=== PATIENT | male | born 1940 | race Caucasian/White ===

== ENCOUNTER 2018-09-15 23:29 | Emergency (ER) | payer MEDICARE ==
[2018-09-15] MEDS ORDERED: Zofran 4 MG/2 ML VIAL IV ONE (23:48)
[2018-09-15] MEDS ORDERED: BABY ASPIRIN 81 MG CHEW PO ONE (23:48)
--- NOTE | 2018-09-16 00:01 | ERPHSYRPT ---
- History of Present Illness Time Seen by Provider: 09/15/18 23:50 Source: patient Exam Limitations: no limitations Physician History: This is a 77-year-old white male with history of irregular heartbeat high blood pressure, he arrives with complaint of substernal chest pain described as dull, associated with nausea and vomiting not associated with shortness of breath onset at 9:30 this evening Patient rates his pain as a 2 out of 10. Past medical history includes High blood pressure, irregular heartbeat, Past surgical history includes bilateral knee replacement, appendectomy, ganglion cyst on the left wrist Social history is positive for occasional alcohol patient denies tobacco or illicit drug use. Timing/Duration: today (9:30 PM) Activities at Onset: rest Quality: dullness Location: substernal Chest Pain Radiation: no radiation Severity of Pain-Max: moderate Severity of Pain-Current: mild Nitro Today/Relief: no nitro taken today Aspirin Treatment Today: 81 mg x 1 (81 mg at home), 81 mg x 3 (83 mg in the emergency room.) Associated Symptoms: nausea, vomiting, chest pain, No abdominal pain, No shortness of breath, No heartburn, No diaphoresis, No cough, No chills, No fever , No headaches, No loss of appetite, No syncope, No seizure, No weakness Prior Chest Pain/Cardiac Workup: cardiac cath (cardiac catheter 5 years ago) Allergies/Adverse Reactions: No Known Drug Allergies Allergy (Verified 09/16/18 01:20) Home Medications: Albuterol Sulfate [Proair Hfa] 8.5 gm IH Q4-6HPRN PRN 09/16/18 [History] Aspirin EC 81 mg [Ecotrin 81 mg] 81 mg PO HS 09/16/18 [History] Fluticasone/Salmeterol [Advair 250-50 Diskus] 1 each IH BID 09/16/18 [History] Montelukast Sodium 10 mg [Singulair 10 MG] 10 mg PO HS 09/16/18 [History] Potassium Chloride 10 Meq Tab* [Klor Con 10 MEQ] 20 meq PO DAILY 09/16/18 [ History] Pravastatin Sodium 40 mg PO HS 09/16/18 [History] Theophylline Anhydrous 300 mg* [Theodur 300MG] 300 mg PO TID 09/16/18 [ History] Verapamil HCl [Verapamil ER] 120 mg PO HS 09/16/18 [History] Verapamil HCl [Verapamil ER] 240 mg PO DAILY 09/16/18 [History] - Review of Systems Constitutional: No Fever, No Chills Eyes: No Symptoms Ears, Nose, & Throat: No Symptoms Respiratory: No Cough, No Dyspnea Cardiac: Chest Pain, No Edema, No Palpitations, No Syncope, No Orthopnea Abdominal/Gastrointestinal: Nausea, Vomiting, No Abdominal Pain, No Diarrhea, No Constipation, No Hematemesis, No Hematochezia, No Melena, No Dysphagia, No Appetite Changes Genitourinary Symptoms: No Dysuria Musculoskeletal: No Back Pain, No Neck Pain Skin: No Rash Neurological: No Dizziness, No Focal Weakness, No Sensory Changes Psychological: No Symptoms Endocrine: No Symptoms All Other Systems: Reviewed and Negative - Past Medical History Pertinent Past Medical History: Yes Cardiac History: Hypertension, Other (irregular heartbeat) - Past Surgical History Gastrointestinal: Appendectomy Musculoskeletal: Joint Replacement (Bilateral knees), Other (Ganglion cyst left wrist) - Nursing Vital Signs Nursing Vital Signs: Initial Vital Signs O2 Sat by Pulse Oximetry 97 09/15/18 23:54 Pain Scale Pain Intensity 2 - Physical Exam General Appearance: moderate distress, alert Eye Exam: PERRL/EOMI, eyes nml inspection Ears, Nose, Throat Exam: normal ENT inspection, moist mucous membranes Neck Exam: normal inspection, non-tender, supple Respiratory Exam: normal breath sounds, lungs clear, No respiratory distress Cardiovascular Exam: normal heart sounds, irregular, capillary refill <2 sec, No edema Gastrointestinal/Abdomen Exam: soft, No tenderness, No mass Back Exam: normal inspection, No CVA tenderness, No vertebral tenderness Neurologic Exam: alert, oriented x 3, cooperative, 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, normal mood/affect, nml cerebellar function, sensation nml, No motor deficits Skin Exam: normal color, warm, dry Lymphatic Exam: No adenopathy SpO2 Interpretation: normal (97%) SpO2: 97 - Course Nursing assessment & vital signs reviewed: Yes EKG Interpreted by Me: RATE (94 bpm), A-fib, NORMAL AXIS, Other (EKG: Atrial fibrillation, poor anterior R-wave progression, no acute ST or T wave changes noted) - Radiology Exams Chest X-ray Interpretation: Interpreted by me (no acute disease process noted) Ordered Tests: Active Orders 24 hr Category Date Time Status Chronograph Operator STAT Care 09/15/18 23:48 Active EKG-ER Only STAT Care 09/15/18 23:48 Active EKG-ER Only STAT Care 09/16/18 01:41 Active IV Insertion STAT Care 09/15/18 23:48 Active Pulse Oximetry (ED) STAT Care 09/15/18 23:48 Active CHEST 1 VIEW (PORTABLE) Routine Exams 09/16/18 00:22 Taken TROPONIN Q3H Lab 09/16/18 02:48 Ordered TROPONIN Q3H Lab 09/16/18 05:48 Ordered TROPONIN Q3H Lab 09/16/18 08:48 Ordered TROPONIN Q3H Lab 09/16/18 11:48 Ordered Medication Summary Generic Name Dose Route Start Last Admin Trade Name Freq PRN Reason Stop Dose Admin Sodium Chloride 1,000 mls @ 100 mls/hr 09/16/18 02:00 09/16/18 01:55 Sodium Chloride 0.9% 1000 Ml IV 10/16/18 01:59 100 mls/hr .Q10H LALITO Administration Discontinued Medications Generic Name Dose Route Start Last Admin Trade Name Freq PRN Reason Stop Dose Admin Aspirin 243 mg 09/15/18 23:48 09/16/18 00:04 Baby Aspirin 81 Mg Chew PO 09/15/18 23:49 243 mg STAT ONE Administration Aspirin Confirm 09/16/18 00:02 Baby Aspirin 81 Mg Chew Administered 09/16/18 00:03 Dose 243 mg .ROUTE .STK-MED ONE Nitroglycerin 1 gm 09/16/18 01:49 09/16/18 01:55 Nitro-Bid 2% Ud Packets TOP 09/16/18 01:50 1 gm STAT ONE Administration Nitroglycerin Confirm 09/16/18 01:49 Nitro-Bid 2% Ud Packets Administered 09/16/18 01:50 Dose 1 gm .ROUTE .STK-MED ONE Ondansetron HCl 4 mg 09/15/18 23:48 09/16/18 00:04 Zofran 4 Mg/2 Ml Vial IV 09/15/18 23:49 4 mg STAT ONE Administration Ondansetron HCl Confirm 09/16/18 00:02 Zofran 4 Mg/2 Ml Vial Administered 09/16/18 00:03 Dose 4 mg .ROUTE .STK-MED ONE Lab/Rad Data: Laboratory Result Diagrams 09/15/18 00:00 09/15/18 00:00 Laboratory Results 09/15/18 09/15/18 09/15/18 Range/Units 00:00 00:00 00:00 WBC (4.0-10.5) K/mm3 RBC (4.1-5.6) M/mm3 Hgb (12.5-18.0) gm/dl Hct (42-50) % MCV (78-100) fl MCH (26-32) pg MCHC (32-36) g/dl RDW (11.5-14.0) % Plt Count (150-450) K/mm3 MPV (6-9.5) fl Gran % (36.0-66.0) % Eos # (Auto) (0-0.5) Absolute Lymphs (auto) (1.0-4.6) Absolute Monos (auto) (0.0-1.3) Lymphocytes % (24.0-44.0) % Monocytes % (0.0-12.0) % Eosinophils % (0.00-5.0) % Basophils % (0.0-0.4) % Absolute Granulocytes (1.4-6.9) Basophils # (0-0.4) PT 16.4 H (8.83-12.87) SECONDS INR 1.41 (0.8-3.0) APTT 33.8 (24.1-36.1) SECONDS D-Dimer 333 (215-500) ng/mL Sodium (137-145) mmol/L Potassium (3.5-5.1) mmol/L Chloride (98-107) mmol/L Carbon Dioxide (22-30) mmol/L Anion Gap (5-15) MEQ/L BUN (9-20) mg/dL Creatinine (0.66-1.25) mg/dL Estimated GFR ML/MIN Glucose (74-106) mg/dL Calcium (8.4-10.2) mg/dL Total Bilirubin (0.2-1.3) mg/dL AST (17-59) U/L ALT (0-50) U/L Alkaline Phosphatase (38-126) U/L Troponin I (0.000-0.034) ng/mL Serum Total Protein (6.3-8.2) g/dL Albumin (3.5-5.0) g/dL Amylase 39 (30-110) U/L Lipase 67 (23-300) U/L Theophylline 8.2 L (10-20) ug/mL 09/15/18 09/15/18 09/15/18 Range/Units 00:00 00:00 00:00 WBC 10.7 H (4.0-10.5) K/mm3 RBC 4.63 (4.1-5.6) M/mm3 Hgb 14.2 (12.5-18.0) gm/dl Hct 44.5 (42-50) % MCV 96.1 (78-100) fl MCH 30.7 (26-32) pg MCHC 31.9 L (32-36) g/dl RDW 13.8 (11.5-14.0) % Plt Count 304 (150-450) K/mm3 MPV 10.9 H (6-9.5) fl Gran % 75.8 H (36.0-66.0) % Eos # (Auto) 0.16 (0-0.5) Absolute Lymphs (auto) 1.22 (1.0-4.6) Absolute Monos (auto) 1.16 (0.0-1.3) Lymphocytes % 11.4 L (24.0-44.0) % Monocytes % 10.8 (0.0-12.0) % Eosinophils % 1.5 (0.00-5.0) % Basophils % 0.5 (0.0-0.4) % Absolute Granulocytes 8.12 H (1.4-6.9) Basophils # 0.05 (0-0.4) PT (8.83-12.87) SECONDS INR (0.8-3.0) APTT (24.1-36.1) SECONDS D-Dimer (215-500) ng/mL Sodium 137 (137-145) mmol/L Potassium 4.1 (3.5-5.1) mmol/L Chloride 101 (98-107) mmol/L Carbon Dioxide 28 (22-30) mmol/L Anion Gap 12.6 (5-15) MEQ/L BUN 17 (9-20) mg/dL Creatinine 0.81 (0.66-1.25) mg/dL Estimated GFR > 60.0 ML/MIN Glucose 110 H (74-106) mg/dL Calcium 9.5 (8.4-10.2) mg/dL Total Bilirubin 0.90 (0.2-1.3) mg/dL AST 16 L (17-59) U/L ALT 14 (0-50) U/L Alkaline Phosphatase 76 (38-126) U/L Troponin I 0.027 (0.000-0.034) ng/mL Serum Total Protein 7.1 (6.3-8.2) g/dL Albumin 4.2 (3.5-5.0) g/dL Amylase (30-110) U/L Lipase (23-300) U/L Theophylline (10-20) ug/mL - Progress Progress: improved Progress Note: 09/16/18 02:14 77-year-old white male with history of high blood pressure, irregular heartbeat arrives with complaint of anterior sternal chest pain described as dull rated as a 3 out of 10 onset at 9:30 PM while at rest not associated with shortness of breath but associated with nausea and vomiting. Patient rated his pain is minimal on interview however he didn't appear to be somewhat uncomfortable. Patient did have stable vital signs with a temperature of 98 2 pulse 94 respirations 16 blood pressure 131/83 saturations are 95% patient had an EKG which of was obtained at 11:37 PM September 15, 2018 remarkable for atrial fibrillation 94 bpm normal axis there are R PVCs there are no acute ST or T wave changes patient's EKG was repeated at 0 146 noted be of atrial fibrillation with tachycardia 101 bpm normal axis no acute ST or T wave changes there were PVCs again no acute ST or T wave changes Patient's chemistry sodium 137 potassium 4.1 chloride 101 bicarbonate 28 BUN 17 creatinine 0.81 glucose 110 patient's d-dimer 333 Patient's CBC White blood cell 10.7 hemoglobin 14.2 hematocrit 44.5 platelets 304 patient's troponin was 0.027 normal is up to 0.034 amylase is 93 lipase is 67 theophylline is within normal limits Patient was given Zofran 4 mg IV. Patient had taken aspirin 81 mg at home we gave him 243 mg here in the emergency room. On recheck after troponin was available patient stated that he still had some pain and therefore he was given nitroglycerin paste 1 inch. Also started on normal saline 100 mL per hour. I've discussed the patient with initially with Dr. Woods (the patient's staffing analyst was Dr. Orantes, however Dr. Orantes could not be reached and Dr. Woods was kind enough to consult, Dr. Woods recommended sending the patient to the hospitalist (through ER) secondary to the patient was Dr. Orantes's he stated that he would be fine with care of this patient however he felt that the patient should go through the hospitalist since it was Dr. Orantes's patient. [facility] placement on contact with Dr. Hernández. The emergency room doctor at [facility], the case was discussed with Dr. Hernández, and he accepted the patient for transfer. Patient will be transferred by paramedics ACLS capable. Patient appears to be stable at this time. 09/16/18 03:33 - Departure Time of Disposition: 02:20 Departure Disposition: Transfer ([facility] Dr. Hernández) Clinical Impression: Chest pain Qualifiers: Chest pain type: unspecified Qualified Code(s): R07.9 - Chest pain, unspecified Atrial fibrillation Qualifiers: Atrial fibrillation type: unspecified Qualified Code(s): I48.91 - Unspecified atrial fibrillation Condition: Fair Critical Care Time: No Referrals: COURTNEY JOHNSON [Primary Care Provider] -
[2018-09-16] MEDS ORDERED: Zofran 4 MG/2 ML VIAL ONE (00:02)
[2018-09-16] MEDS ORDERED: BABY ASPIRIN 81 MG CHEW ONE (00:02)
[2018-09-16 00:45] LABS: BASOPHIL % 0.5 % (0.0-0.4); Basophil (Absolute #) 0.05 (0-0.4); Eosinophil % 1.5 % (0.00-5.0); Eosinophil (Absolute #) 0.16 (0-0.5); Granulocytes % 75.8 % (36.0-66.0); Hematocrit 44.5 % (42-50); Hemoglobin 14.2 gm/dl (12.5-18.0); Lymphocyte (Absolute #) 1.22 (1.0-4.6); Lymphocytes % 11.4 % (24.0-44.0); Mean Cell Volume 96.1 fl (78-100); Mean Corpuscular Hemoglobin 30.7 pg (26-32); Mean Corpuscular Hgb Concent. 31.9 g/dl (32-36); Mean Platelet Volume 10.9 fl (6-9.5); Monocyte (Absolute #) 1.16 (0.0-1.3); Monocytes % 10.8 % (0.0-12.0); Platelet Count 304 K/mm3 (150-450); Red Blood Count 4.63 M/mm3 (4.1-5.6); Red Cell Distribution Width 13.8 % (11.5-14.0)
[2018-09-16 00:56] LABS: ALBUMIN 4.2 g/dL (3.5-5.0); ALKALINE PHOSPHATASE 76 U/L (38-126); ANION GAP 12.6 MEQ/L (5-15); BLOOD UREA NITROGEN 17 mg/dL (9-20); CHLORIDE 101 mmol/L (98-107); Calcium 9.5 mg/dL (8.4-10.2); Carbon Dioxide 28 mmol/L (22-30); Glucose 110 mg/dL (74-106); Potassium 4.1 mmol/L (3.5-5.1); SGOT/AST 16 U/L (17-59); SGPT/ALT 14 U/L (0-50); SODIUM 137 mmol/L (137-145); Total Protein 7.1 g/dL (6.3-8.2)
[2018-09-16 01:12] LABS: INR 1.41 (0.8-3.0); PROTIME 16.4 SECONDS (8.83-12.87)
[2018-09-16 01:23] LABS: LIPASE 67 U/L (23-300)
[2018-09-16] MEDS ORDERED: Sodium Chloride 0.9% 1000 ML 1,000 ML ONE (01:49)
[2018-09-16] MEDS ORDERED: NITRO-BID 2% UD PACKETS ONE (01:49)
[2018-09-16] MEDS ORDERED: NITRO-BID 2% UD PACKETS TOP ONE (01:49)
[2018-09-16] MEDS ORDERED: Sodium Chloride 0.9% 1000 ML 1,000 ML IV SCH (02:00)
[2018-09-16 02:06] VITALS: BP 111/87; PULSE 109
[2018-09-16 02:20] VITALS: O2SAT 97
[2018-09-16 03:59] LABS: Slide Review 1 YES
[2018-09-16 05:21] LABS: White Blood Count 10.7 K/mm3 (4.0-10.5)
[2018-09-16 05:22] LABS: PTT 33.8 SECONDS (24.1-36.1)
[2018-09-16 05:23] LABS: AMYLASE 39 U/L (30-110)
[2018-09-16 05:24] LABS: Creatinine 1 0.81 mg/dL (0.66-1.25)
--- NOTE | 2018-09-16 09:17 | XRAY ---
Indication: Chest pain. Comparison: August 19, 2018. Portable apical lordotic chest demonstrates new left lung base hazy opacity silhouetting the hemidiaphragm, infiltrate versus atelectasis with small effusion. Remaining heart and right lung unremarkable. Bony thorax intact again with mild degenerative changes and minimal scoliosis. Impression: New left base infiltrate versus atelectasis with small effusion. Correlate clinically. Comment: Left lung finding not reported on preliminary interpretation by the ER clinician. Telephone report given to Dr. Orourke at 0912 hrs. on September 16, 2018.
== END 2018-09-16 02:40 | disposition short-term general hospital (02) ==
LOC: ED 23:29
DX: R07.9 Chest pain, unspecified (principal); I48.91 Unspecified atrial fibrillation; R11.2 Nausea with vomiting, unspecified; Z79.899 Other long term (current) drug therapy
CPT/HCPCS: 36000; 36415; 71045; 80053; 80198; 82150; 83690; 84484; 85025; 85379; 85610; 85730; 93005; 93041; 96360; 96374; 99285; J2405; A9270-GY

== ENCOUNTER 2018-09-19 15:10 | Emergency (ER) | payer MEDICARE ==
--- NOTE | 2018-09-19 15:45 | ERPHSYRPT ---
- History of Present Illness Time Seen by Provider: 09/19/18 15:25 Historian: patient, family Exam Limitations: no limitations Patient Subjective Stated Complaint: co abd pain since last night, pain to center of abd. no vomiting or nausea,no fever, constipation. last bm today. pt released from [facility] yesterday for chest pain and rvr, no chest pain today Triage Nursing Assessment: pt walked in, resp easy, skin w/d/p. abd soft,abd soft nonteder to touch Physician History: 77 y/o white male presents with abd pain that began shortly after waking up this am. pt released from hospital yesterday for tx of afib with rvr. new med of eliquis started. pt denies headache, denies cp and denies fever, denies n/v/ d. pt has not had a good bm in over 2 days. Timing/Duration: today Activities at Onset: none Quality: fullness, pressure Abdominal Pain Onset Location: generalized abdomen Pain Radiation: no radiation Severity of Pain-Max: mild Severity of Pain-Current: mild Modifying Factors: Worsens With: other Associated Symptoms: denies symptoms, No diarrhea, No headache, No loss of appetite, No nausea, No shortness of breath, No vomiting Previous symptoms: no prior history Allergies/Adverse Reactions: No Known Drug Allergies Allergy (Verified 09/19/18 15:25) Home Medications: Albuterol Sulfate [Proair Hfa] 8.5 gm IH Q4-6HPRN PRN 09/16/18 [History] Aspirin EC 81 mg [Ecotrin 81 mg] 81 mg PO HS 09/16/18 [History] Fluticasone/Salmeterol [Advair 250-50 Diskus] 1 each IH BID 09/16/18 [History] Montelukast Sodium 10 mg [Singulair 10 MG] 10 mg PO HS 09/16/18 [History] Potassium Chloride 10 Meq Tab* [Klor Con 10 MEQ] 20 meq PO DAILY 09/16/18 [ History] Pravastatin Sodium 40 mg PO HS 09/16/18 [History] Theophylline Anhydrous 300 mg* [Theodur 300MG] 300 mg PO TID 09/16/18 [ History] Apixaban [Eliquis] 5 mg BID 09/19/18 [History] Metoprolol Tartrate [Lopressor] 50 mg BID 09/19/18 [History] Hx Tetanus, Diphtheria Vaccination/Date Given: Yes Hx Influenza Vaccination/Date Given: Yes Hx Pneumococcal Vaccination/Date Given: Yes Immunizations Up to Date: Yes - Review of Systems Constitutional: No Symptoms Eyes: No Symptoms Ears, Nose, & Throat: No Symptoms Respiratory: No Symptoms Cardiac: No Symptoms Abdominal/Gastrointestinal: Abdominal Pain, Constipation Genitourinary Symptoms: No Symptoms, No Dysuria, No Frequency, No Hematuria Musculoskeletal: No Symptoms Skin: No Symptoms Neurological: No Symptoms Psychological: No Symptoms Endocrine: No Symptoms Hematologic/Lymphatic: No Symptoms Immunological/Allergic: No Symptoms All Other Systems: Reviewed and Negative - Past Medical History Pertinent Past Medical History: Yes Neurological History: No Pertinent History ENT History: No Pertinent History Cardiac History: Arrhythmia, Hypertension, Other Respiratory History: COPD Endocrine Medical History: No Pertinent History Musculoskeletal History: No Pertinent History GI Medical History: No Pertinent History History: No Pertinent History Psycho-Social History: No Pertinent History Male Reproductive Disorders: No Pertinent History - Past Surgical History Past Surgical History: Yes Neuro Surgical History: No Pertinent History Cardiac: No Pertinent History Respiratory: No Pertinent History Gastrointestinal: Appendectomy Genitourinary: No Pertinent History Musculoskeletal: Joint Replacement, Other Male Surgical History: No Pertinent History Other Surgical History: bilat knees - Social History Smoking Status: Former smoker Exposure to second hand smoke: No Drug Use: none Patient Lives Alone: Yes - Nursing Vital Signs Nursing Vital Signs: Initial Vital Signs Temperature 110 F 09/19/18 15:14 Respiratory Rate 18 09/19/18 15:14 Blood Pressure 150/109 09/19/18 15:14 O2 Sat by Pulse Oximetry 96 09/19/18 15:14 Pain Scale Pain Intensity 4 - Physical Exam General Appearance: no apparent distress, alert, anxiety Eye Exam: PERRL/EOMI, eyes nml inspection Ears, Nose, Throat Exam: normal ENT inspection, moist mucous membranes Neck Exam: normal inspection, non-tender, supple, full range of motion Respiratory Exam: normal breath sounds, lungs clear, airway intact, No chest tenderness, No respiratory distress, No accessory muscle use, No rhonchi, No wheezing, No stridor Cardiovascular Exam: irregular Gastrointestinal/Abdomen Exam: soft, normal bowel sounds, No tenderness, No guarding, No rebound Rectal Exam: not done Back Exam: normal inspection, normal range of motion, No CVA tenderness, No vertebral tenderness Extremity Exam: normal inspection, normal range of motion, pelvis stable Neurologic Exam: alert, oriented x 3, cooperative, 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 Skin Exam: normal color, warm, dry Lymphatic Exam: adenopathy SpO2 Interpretation: normal SpO2: 96 Oxygen Delivery: Room Air - Course Nursing assessment & vital signs reviewed: Yes EKG Interpreted by Me: RATE (121), A-fib, NORMAL AXIS, Non-specific ST Changes, Other (no change from ekg dated 09/16/18) Ordered Tests: Active Orders 24 hr Category Date Time Status Clean Catch Urine Specimen STAT Care 09/19/18 15:46 Active ABDOMEN AND PELVIS W/0 CONTRAS [CT] Stat Exams 09/19/18 15:46 Completed AMYLASE Stat Lab 09/19/18 16:21 Completed CBC W DIFF Stat Lab 09/19/18 16:21 Completed CMP Stat Lab 09/19/18 16:21 Completed LIPASE Stat Lab 09/19/18 16:21 Completed Lactic Acid Stat Lab 09/19/18 15:55 Completed Lactic Acid Stat Lab 09/19/18 18:00 Ordered UA W/RFX UR CULTURE Stat Lab 09/19/18 16:21 Completed Medication Summary Generic Name Dose Route Start Last Admin Trade Name Freq PRN Reason Stop Dose Admin Sodium Chloride 1,000 mls @ 100 mls/hr 09/19/18 16:00 09/19/18 16:18 Sodium Chloride 0.9% 1000 Ml IV 10/19/18 15:59 100 mls/hr .Q10H LALITO Administration Discontinued Medications Generic Name Dose Route Start Last Admin Trade Name Freq PRN Reason Stop Dose Admin Diltiazem HCl 20 mg 09/19/18 15:47 09/19/18 16:18 Cardizem Iv 50 Mg/10 Ml IV 09/19/18 15:48 20 mg STAT ONE Administration Diltiazem HCl Confirm 09/19/18 16:01 Cardizem Iv 50 Mg/10 Ml Administered 09/19/18 16:02 Dose 50 mg IV .STK-MED ONE Lab/Rad Data: Laboratory Result Diagrams 09/19/18 16:21 09/19/18 16:21 Laboratory Results 09/19/18 09/19/18 09/19/18 Range/Units 16:21 16:21 16:21 WBC 14.9 H (4.0-10.5) K/mm3 RBC 5.07 (4.1-5.6) M/mm3 Hgb 15.3 (12.5-18.0) gm/dl Hct 47.6 (42-50) % MCV 93.9 (78-100) fl MCH 30.2 (26-32) pg MCHC 32.1 (32-36) g/dl RDW 13.7 (11.5-14.0) % Plt Count 308 (150-450) K/mm3 MPV 11.1 H (6-9.5) fl Gran % 83.2 H (36.0-66.0) % Eos # (Auto) 0.02 (0-0.5) Absolute Lymphs (auto) 0.86 L (1.0-4.6) Absolute Monos (auto) 1.58 H (0.0-1.3) Lymphocytes % 5.8 L (24.0-44.0) % Monocytes % 10.6 (0.0-12.0) % Eosinophils % 0.1 (0.00-5.0) % Basophils % 0.3 (0.0-0.4) % Absolute Granulocytes 12.41 H (1.4-6.9) Basophils # 0.04 (0-0.4) Sodium 136 L (137-145) mmol/L Potassium 4.0 (3.5-5.1) mmol/L Chloride 100 (98-107) mmol/L Carbon Dioxide 24 (22-30) mmol/L Anion Gap 16.1 H (5-15) MEQ/L BUN 12 (9-20) mg/dL Creatinine 0.61 L (0.66-1.25) mg/dL Estimated GFR > 60.0 ML/MIN Glucose 109 H (74-106) mg/dL Lactic Acid (0.4-2.0) Calcium 9.7 (8.4-10.2) mg/dL Total Bilirubin 1.30 (0.2-1.3) mg/dL AST 19 (17-59) U/L ALT 15 (0-50) U/L Alkaline Phosphatase 67 (38-126) U/L Serum Total Protein 7.6 (6.3-8.2) g/dL Albumin 4.4 (3.5-5.0) g/dL Amylase 52 (30-110) U/L Lipase 49 (23-300) U/L Urine Color YELLOW (YELLOW) Urine Appearance CLEAR (CLEAR) Urine pH 5.0 (5-6) Ur Specific Parsons 1.025 (1.005-1.025) Urine Protein NEGATIVE (Negative) Urine Ketones MODERATE (NEGATIVE) Urine Blood MODERATE (0-5) Keegan/ul Urine Nitrite NEGATIVE (NEGATIVE) Urine Bilirubin NEGATIVE (NEGATIVE) Urine Urobilinogen 2 (0-1) mg/dL Ur Leukocyte Esterase NEGATIVE (NEGATIVE) Urine WBC (Auto) NONE (0-5) /HPF Urine RBC (Auto) 6-10 (0-2) /HPF U Epithel Cells (Auto) NONE (FEW) /HPF Urine Bacteria (Auto) RARE (NEGATIVE) /HPF Urine Mucus (Auto) MODERATE (NEGATIVE) /HPF Urine Culture Reflexed NO (NO) Urine Glucose NEGATIVE (NEGATIVE) mg/dL Slides for Path Review YES 09/19/18 Range/Units 15:55 WBC (4.0-10.5) K/mm3 RBC (4.1-5.6) M/mm3 Hgb (12.5-18.0) gm/dl Hct (42-50) % MCV (78-100) fl MCH (26-32) pg MCHC (32-36) g/dl RDW (11.5-14.0) % Plt Count (150-450) K/mm3 MPV (6-9.5) fl Gran % (36.0-66.0) % Eos # (Auto) (0-0.5) Absolute Lymphs (auto) (1.0-4.6) Absolute Monos (auto) (0.0-1.3) Lymphocytes % (24.0-44.0) % Monocytes % (0.0-12.0) % Eosinophils % (0.00-5.0) % Basophils % (0.0-0.4) % Absolute Granulocytes (1.4-6.9) Basophils # (0-0.4) Sodium (137-145) mmol/L Potassium (3.5-5.1) mmol/L Chloride (98-107) mmol/L Carbon Dioxide (22-30) mmol/L Anion Gap (5-15) MEQ/L BUN (9-20) mg/dL Creatinine (0.66-1.25) mg/dL Estimated GFR ML/MIN Glucose (74-106) mg/dL Lactic Acid 2.0 (0.4-2.0) Calcium (8.4-10.2) mg/dL Total Bilirubin (0.2-1.3) mg/dL AST (17-59) U/L ALT (0-50) U/L Alkaline Phosphatase (38-126) U/L Serum Total Protein (6.3-8.2) g/dL Albumin (3.5-5.0) g/dL Amylase (30-110) U/L Lipase (23-300) U/L Urine Color (YELLOW) Urine Appearance (CLEAR) Urine pH (5-6) Ur Specific Parsons (1.005-1.025) Urine Protein (Negative) Urine Ketones (NEGATIVE) Urine Blood (0-5) Keegan/ul Urine Nitrite (NEGATIVE) Urine Bilirubin (NEGATIVE) Urine Urobilinogen (0-1) mg/dL Ur Leukocyte Esterase (NEGATIVE) Urine WBC (Auto) (0-5) /HPF Urine RBC (Auto) (0-2) /HPF U Epithel Cells (Auto) (FEW) /HPF Urine Bacteria (Auto) (NEGATIVE) /HPF Urine Mucus (Auto) (NEGATIVE) /HPF Urine Culture Reflexed (NO) Urine Glucose (NEGATIVE) mg/dL Slides for Path Review - Progress Progress: improved, re-examined Progress Note: 09/19/18 18:25 pt states his pain is gone in the middle and only mild in ruq. ct scan abd/ pelvis-distended gb with gallstones. there is pericholecystic stranding. 09/19/18 18:[address] morales. reviewed pt hx, condition, lab,ekg and ct scan results with him. pt has an appt with dr. morales tomorrow morning. dr. morales states ok to discharge pt to home. no further labs, meds or instructions necessary per dr. morales. pt wants to go home. he has very little ruq abd pain and no cp and no soa. Counseled pt/family regarding: lab results, diagnosis, need for follow-up, rad results - Departure Time of Disposition: 18:46 Departure Disposition: Home Clinical Impression: Abdominal pain, Cholelithiasis Condition: Stable Critical Care Time: No Referrals: COURTNEY JOHNSON [Primary Care Provider] - Additional Instructions: clear liquids for 12 to 24 hours. avoid fatty, greasy spicy foods. take medications as prescribed. follow up with dr. morales tomorrow as scheduled. Prescriptions: Ciprofloxacin [Cipro 500 MG] 500 mg PO BID #14 tablet
[2018-09-19] MEDS ORDERED: Cardizem IV 50 MG/10 ML IV ONE ×2 (15:47→16:01)
[2018-09-19] MEDS ORDERED: Sodium Chloride 0.9% 1000 ML 1,000 ML IV SCH (16:00)
[2018-09-19] MEDS ORDERED: Sodium Chloride 0.9% 1000 ML 1,000 ML ONE (16:01)
[2018-09-19 16:23] LABS: BASOPHIL % 0.3 % (0.0-0.4); Basophil (Absolute #) 0.04 (0-0.4); Eosinophil % 0.1 % (0.00-5.0); Eosinophil (Absolute #) 0.02 (0-0.5); Granulocytes % 83.2 % (36.0-66.0); Hematocrit 47.6 % (42-50); Hemoglobin 15.3 gm/dl (12.5-18.0); Lymphocyte (Absolute #) 0.86 (1.0-4.6); Lymphocytes % 5.8 % (24.0-44.0); Mean Cell Volume 93.9 fl (78-100); Mean Corpuscular Hemoglobin 30.2 pg (26-32); Mean Corpuscular Hgb Concent. 32.1 g/dl (32-36); Mean Platelet Volume 11.1 fl (6-9.5); Monocyte (Absolute #) 1.58 (0.0-1.3); Monocytes % 10.6 % (0.0-12.0); Platelet Count 308 K/mm3 (150-450); Red Blood Count 5.07 M/mm3 (4.1-5.6); Red Cell Distribution Width 13.7 % (11.5-14.0); White Blood Count 14.9 K/mm3 (4.0-10.5)
--- NOTE | 2018-09-19 16:23 | XRAY ---
Indication: Abdomen pain. Multiple contiguous axial images obtained through the abdomen and pelvis without contrast as ordered. Comparison: None Lung bases demonstrates mild bibasilar atelectasis/scarring and tiny effusions. Heart is not enlarged. Noncontrasted stomach and bowel loops appear nonobstructed. Previous reported appendectomy. Scattered descending and sigmoid diverticulosis. Gallbladder moderately distended with multiple small intraluminal gallstones and mild pericholecystic stranding concerning for cholecystitis. Enlarged prostate gland impresses on the base of the bladder. Remaining liver, pancreas, spleen, adrenal glands, kidneys, ureters, and bladder appear unremarkable for noncontrast exam. Moderate aortoiliac calcifications without AAA. Osseous structures intact with mild/moderate degenerative changes throughout the spine. Multiple bilateral gluteal calcified injection granulomas. Impression: 1. Distended gallbladder with gallstones and pericholecystic stranding. Rule out cholecystitis. 2. Colonic diverticulosis without diverticulitis. 3. Enlarged prostate gland. 4. Tiny bibasilar effusions without cardiomegaly. CT DI 22.18
[2018-09-19 16:27] LABS: Appearance CLEAR (CLEAR); Bacteria RARE /HPF (NEGATIVE); Bilirubin NEGATIVE (NEGATIVE); Blood MODERATE Ery/ul (0-5); Glucose NEGATIVE (NEGATIVE); Ketones MODERATE (NEGATIVE); Leukocyte Esterase NEGATIVE (NEGATIVE); Mucus MODERATE /HPF (NEGATIVE); Nitrite NEGATIVE (NEGATIVE); Protein,Urine Dip NEGATIVE (Negative); Specific Gravity 1.025 (1.005-1.025); Urobilinogen 2 mg/dL (0-1)
[2018-09-19 16:36] LABS: ALBUMIN 4.4 g/dL (3.5-5.0); ALKALINE PHOSPHATASE 67 U/L (38-126); AMYLASE 52 U/L (30-110); ANION GAP 16.1 MEQ/L (5-15); BLOOD UREA NITROGEN 12 mg/dL (9-20); CHLORIDE 100 mmol/L (98-107); Calcium 9.7 mg/dL (8.4-10.2); Carbon Dioxide 24 mmol/L (22-30); Creatinine 1 0.61 mg/dL (0.66-1.25); Glucose 109 mg/dL (74-106); LIPASE 49 U/L (23-300); SGOT/AST 19 U/L (17-59); SGPT/ALT 15 U/L (0-50); SODIUM 136 mmol/L (137-145); Total Protein 7.6 g/dL (6.3-8.2)
[2018-09-19 16:44] LABS: Slide Review 1 YES
[2018-09-19] MEDS ORDERED: Cipro 500 MG PO ONE (18:49)
[2018-09-19] MEDS ORDERED: Cipro 500 MG ONE (18:55)
[2018-09-19 19:31] VITALS: BP 142/103; PULSE 104; O2SAT 97
== END 2018-09-19 19:35 | disposition home or self-care (01) ==
LOC: ED 15:10
DX: R10.9 Unspecified abdominal pain (principal); Z79.899 Other long term (current) drug therapy; Z79.01 Long term (current) use of anticoagulants; K59.00 Constipation, unspecified; I10 Essential (primary) hypertension; J44.9 Chronic obstructive pulmonary disease, unspecified
CPT/HCPCS: 36000; 36415; 74176; 80053; 81001; 82150; 83605; 83690; 85025; 96360; 96374; 99284; A9270-GY

== ENCOUNTER 2018-10-14 23:51 | Inpatient (IN) | payer MEDICARE ==
--- NOTE | 2018-10-15 00:14 | ERPHSYRPT ---
- History of Present Illness Time Seen by Provider: 10/15/18 00:07 Historian: patient Exam Limitations: no limitations Physician History: The patient is a 77-year-old male with his complaining of right upper quadrant abdominal pain that began at 8 PM (4 hours ago). He has a known problem with his gallbladder and is scheduled to have it removed on 10/24/18. He does not have any pain medicines at home. He denies nausea or vomiting. He denies diarrhea. He denies chest pain or shortness of breath. He was seen in this ER on 09/19/18 for the same complaint. He was found at that time to have gallstones and a distended gallbladder by CT scan of the abdomen and pelvis. His past medical history significant for gallbladder disease, HTN, A. fib, COPD , appendectomy, and bilateral total knee replacements. Timing/Duration: today, hour(s) (4), sudden, worse Activities at Onset: none Quality: sharpness Abdominal Pain Onset Location: RUQ Pain Radiation: no radiation Severity of Pain-Max: moderate Severity of Pain-Current: moderate Modifying Factors: Improves With: nothing Associated Symptoms: No chest pain, No diaphoresis, No diarrhea, No nausea, No vomiting Previous symptoms: same symptoms as today, recently seen Allergies/Adverse Reactions: No Known Drug Allergies Allergy (Verified 09/19/18 15:25) Home Medications: Albuterol Sulfate [Proair Hfa] 8.5 gm IH Q4-6HPRN PRN 09/16/18 [History] Fluticasone/Salmeterol [Advair 250-50 Diskus] 2 each IH BID 09/16/18 [History] Montelukast Sodium 10 mg [Singulair 10 MG] 10 mg PO HS 09/16/18 [History] Potassium Chloride 10 Meq Tab* [Klor Con 10 MEQ] 20 meq PO BID 09/16/18 [ History] Pravastatin Sodium 40 mg PO HS 09/16/18 [History] Theophylline Anhydrous 300 mg* [Theodur 300MG] 300 mg PO BID 09/16/18 [ History] Apixaban [Eliquis] 5 mg PO BID 09/19/18 [History] Metoprolol Tartrate [Lopressor] 50 mg PO BID 09/19/18 [History] Digoxin 0.125 mg Tablet [Lanoxin 0.125MG TABLET] 0.125 mg PO HS 10/14/18 [ History] Benzonatate [Tessalon Perle] 100 mg PO TIDPRN PRN 10/15/18 [History] Hx Tetanus, Diphtheria Vaccination/Date Given: Yes Hx Influenza Vaccination/Date Given: Yes Hx Pneumococcal Vaccination/Date Given: Yes - Review of Systems Constitutional: No Fever, No Chills Eyes: No Symptoms Ears, Nose, & Throat: No Symptoms Respiratory: No Cough, No Dyspnea Cardiac: No Chest Pain, No Edema, No Syncope Abdominal/Gastrointestinal: Abdominal Pain, No Nausea, No Vomiting, No Diarrhea Genitourinary Symptoms: No Dysuria Musculoskeletal: No Back Pain, No Neck Pain Skin: No Rash Neurological: No Dizziness, No Focal Weakness, No Sensory Changes Psychological: No Symptoms Endocrine: No Symptoms Hematologic/Lymphatic: No Symptoms Immunological/Allergic: No Symptoms All Other Systems: Reviewed and Negative - Past Medical History Pertinent Past Medical History: Yes Neurological History: No Pertinent History ENT History: No Pertinent History Cardiac History: Arrhythmia, Hypertension, Other Respiratory History: COPD Endocrine Medical History: No Pertinent History Musculoskeletal History: No Pertinent History GI Medical History: No Pertinent History History: No Pertinent History Psycho-Social History: No Pertinent History Male Reproductive Disorders: No Pertinent History - Past Surgical History Past Surgical History: Yes Neuro Surgical History: No Pertinent History Cardiac: Cardiac Catheterization Respiratory: No Pertinent History Gastrointestinal: Appendectomy Genitourinary: No Pertinent History Musculoskeletal: Joint Replacement, Other Male Surgical History: No Pertinent History Other Surgical History: bilat knees, L wrist ganglion cyst - Social History Smoking Status: Former smoker Exposure to second hand smoke: No Drug Use: none Patient Lives Alone: Yes - Nursing Vital Signs Nursing Vital Signs: Initial Vital Signs Temperature 100.2 F 10/14/18 23:52 Pulse Rate 111 H 10/14/18 23:52 Blood Pressure 155/113 10/14/18 23:52 O2 Sat by Pulse Oximetry 95 10/14/18 23:52 Pain Scale Pain Intensity 0 - Physical Exam General Appearance: no apparent distress, alert Eye Exam: PERRL/EOMI, eyes nml inspection Ears, Nose, Throat Exam: normal ENT inspection, pharynx normal, moist mucous membranes Neck Exam: normal inspection, non-tender, supple, full range of motion Respiratory Exam: normal breath sounds, lungs clear, No respiratory distress Cardiovascular Exam: normal heart sounds, irregular Gastrointestinal/Abdomen Exam: tenderness (RUQ) Rectal Exam: not done Back Exam: normal inspection, normal range of motion, No CVA tenderness, No vertebral tenderness Extremity Exam: normal inspection, normal range of motion, pelvis stable Neurologic Exam: alert, oriented x 3, cooperative, normal mood/affect, nml cerebellar function, sensation nml, No motor deficits Skin Exam: normal color, warm, dry SpO2 Interpretation: normal O2 Delivery: Room Air - Course EKG Interpreted by Me: RATE, A-fib, NORMAL AXIS, NORMAL QRS, NORMAL ST-T, Other (no change comp to EKG from 09/19/18.) - CT Exams Abdomen/Pelvis CT Interpretation: Discussed w/radiologist (per Dr Slade), Other (findings compatible with cholecystitsis and possible gangrenous cholecystitis) Ordered Tests: Active Orders 24 hr Category Date Time Status EKG-ER Only STAT Care 10/15/18 00:20 Active IV Insertion STAT Care 10/15/18 00:11 Active ABDOMEN AND PELVIS W/0 CONTRAS [CT] Stat Exams 10/15/18 00:20 Ordered AMYLASE Stat Lab 10/15/18 01:02 Completed CBC W DIFF Stat Lab 10/15/18 01:02 Completed CMP Stat Lab 10/15/18 01:02 Completed LIPASE Stat Lab 10/15/18 01:02 Completed Lactic Acid Stat Lab 10/15/18 00:20 Completed PROTIME WITH INR Stat Lab 10/15/18 01:02 Completed TROPONIN Q3H Lab 10/15/18 01:02 Completed TROPONIN Q3H Lab 10/15/18 03:30 Ordered TROPONIN Q3H Lab 10/15/18 06:30 Ordered TROPONIN Q3H Lab 10/15/18 09:30 Ordered TROPONIN Q3H Lab 10/15/18 12:30 Ordered UA W/RFX UR CULTURE Stat Lab 10/15/18 01:02 Completed Medication Summary Discontinued Medications Generic Name Dose Route Start Last Admin Trade Name Freq PRN Reason Stop Dose Admin Sodium Chloride 1,000 mls @ 999 mls/hr 10/15/18 00:20 10/15/18 01:29 Sodium Chloride 0.9% 1000 Ml IV 10/15/18 01:20 Infused .Q1H1M STA Infusion Sodium Chloride Confirm 10/15/18 00:25 Sodium Chloride 0.9% 1000 Ml Administered 10/15/18 00:26 Dose 1,000 mls @ ud .ROUTE .STK-MED ONE Morphine Sulfate 8 mg 10/15/18 00:20 10/15/18 00:29 Morphine Sulfate 10 Mg/Ml IV 10/15/18 00:21 4 mg STAT ONE Administration Morphine Sulfate Confirm 10/15/18 00:25 Morphine Sulfate 10 Mg/Ml Administered 10/15/18 00:26 Dose 10 mg .ROUTE .STK-MED ONE Ondansetron HCl 4 mg 10/15/18 00:20 10/15/18 00:28 Zofran 4 Mg/2 Ml Vial IV 10/15/18 00:21 4 mg STAT ONE Administration Ondansetron HCl Confirm 10/15/18 00:25 Zofran 4 Mg/2 Ml Vial Administered 10/15/18 00:26 Dose 4 mg .ROUTE .STK-MED ONE Lab/Rad Data: Laboratory Result Diagrams 10/15/18 01:02 10/15/18 01:02 Laboratory Results 10/15/18 10/15/18 10/15/18 Range/Units 01:02 01:02 01:02 WBC (4.0-10.5) K/mm3 RBC (4.1-5.6) M/mm3 Hgb (12.5-18.0) gm/dl Hct (42-50) % MCV (78-100) fl MCH (26-32) pg MCHC (32-36) g/dl RDW (11.5-14.0) % Plt Count (150-450) K/mm3 MPV (6-9.5) fl Gran % (36.0-66.0) % Eos # (Auto) (0-0.5) Absolute Lymphs (auto) (1.0-4.6) Absolute Monos (auto) (0.0-1.3) Lymphocytes % (24.0-44.0) % Monocytes % (0.0-12.0) % Eosinophils % (0.00-5.0) % Basophils % (0.0-0.4) % Absolute Granulocytes (1.4-6.9) Basophils # (0-0.4) PT 33.8 H (8.83-12.87) SECONDS INR 2.88 (0.8-3.0) Sodium (137-145) mmol/L Potassium (3.5-5.1) mmol/L Chloride (98-107) mmol/L Carbon Dioxide (22-30) mmol/L Anion Gap (5-15) MEQ/L BUN (9-20) mg/dL Creatinine (0.66-1.25) mg/dL Estimated GFR ML/MIN Glucose (74-106) mg/dL Lactic Acid (0.4-2.0) Calcium (8.4-10.2) mg/dL Total Bilirubin (0.2-1.3) mg/dL AST (17-59) U/L ALT (0-50) U/L Alkaline Phosphatase (38-126) U/L Troponin I 0.036 H* (0.000-0.034) ng/mL Serum Total Protein (6.3-8.2) g/dL Albumin (3.5-5.0) g/dL Amylase (30-110) U/L Lipase (23-300) U/L Urine Color YELLOW (YELLOW) Urine Appearance CLEAR (CLEAR) Urine pH 5.0 (5-6) Ur Specific [place] 1.019 (1.005-1.025) Urine Protein NEGATIVE (Negative) Urine Ketones TRACE (NEGATIVE) Urine Blood MODERATE (0-5) Keegan/ul Urine Nitrite NEGATIVE (NEGATIVE) Urine Bilirubin NEGATIVE (NEGATIVE) Urine Urobilinogen 2 (0-1) mg/dL Ur Leukocyte Esterase NEGATIVE (NEGATIVE) Urine WBC (Auto) 0-2 (0-5) /HPF Urine RBC (Auto) 0-2 (0-2) /HPF U Epithel Cells (Auto) NONE (FEW) /HPF Urine Bacteria (Auto) NONE SEEN (NEGATIVE) /HPF Urine Mucus (Auto) SLIGHT (NEGATIVE) /HPF Urine Culture Reflexed NO (NO) Urine Glucose NEGATIVE (NEGATIVE) mg/dL 10/15/18 10/15/18 10/15/18 Range/Units 01:02 01:02 00:20 WBC 13.3 H (4.0-10.5) K/mm3 RBC 4.54 (4.1-5.6) M/mm3 Hgb 13.6 (12.5-18.0) gm/dl Hct 42.9 (42-50) % MCV 94.5 (78-100) fl MCH 30.0 (26-32) pg MCHC 31.7 L (32-36) g/dl RDW 13.9 (11.5-14.0) % Plt Count 311 (150-450) K/mm3 MPV 11.0 H (6-9.5) fl Gran % 82.8 H (36.0-66.0) % Eos # (Auto) 0.21 (0-0.5) Absolute Lymphs (auto) 0.66 L (1.0-4.6) Absolute Monos (auto) 1.35 H (0.0-1.3) Lymphocytes % 5.0 L (24.0-44.0) % Monocytes % 10.1 (0.0-12.0) % Eosinophils % 1.6 (0.00-5.0) % Basophils % 0.5 (0.0-0.4) % Absolute Granulocytes 11.04 H (1.4-6.9) Basophils # 0.06 (0-0.4) PT (8.83-12.87) SECONDS INR (0.8-3.0) Sodium 136 L (137-145) mmol/L Potassium 3.8 (3.5-5.1) mmol/L Chloride 100 (98-107) mmol/L Carbon Dioxide 26 (22-30) mmol/L Anion Gap 14.2 (5-15) MEQ/L BUN 10 (9-20) mg/dL Creatinine 0.75 (0.66-1.25) mg/dL Estimated GFR > 60.0 ML/MIN Glucose 129 H (74-106) mg/dL Lactic Acid 1.6 (0.4-2.0) Calcium 9.6 (8.4-10.2) mg/dL Total Bilirubin 1.20 (0.2-1.3) mg/dL AST 16 L (17-59) U/L ALT 17 (0-50) U/L Alkaline Phosphatase 68 (38-126) U/L Troponin I (0.000-0.034) ng/mL Serum Total Protein 7.4 (6.3-8.2) g/dL Albumin 4.1 (3.5-5.0) g/dL Amylase 70 (30-110) U/L Lipase 92 (23-300) U/L Urine Color (YELLOW) Urine Appearance (CLEAR) Urine pH (5-6) Ur Specific [place] (1.005-1.025) Urine Protein (Negative) Urine Ketones (NEGATIVE) Urine Blood (0-5) Keegan/ul Urine Nitrite (NEGATIVE) Urine Bilirubin (NEGATIVE) Urine Urobilinogen (0-1) mg/dL Ur Leukocyte Esterase (NEGATIVE) Urine WBC (Auto) (0-5) /HPF Urine RBC (Auto) (0-2) /HPF U Epithel Cells (Auto) (FEW) /HPF Urine Bacteria (Auto) (NEGATIVE) /HPF Urine Mucus (Auto) (NEGATIVE) /HPF Urine Culture Reflexed (NO) Urine Glucose (NEGATIVE) mg/dL - Progress Progress: improved Progress Note: 10/15/18 01:58 given MSO4 4 mg IV Discussed with Dr.: Mine Rubio Will see patient in: hospital (full admit) Counseled pt/family regarding: lab results, diagnosis, rad results - Departure Time of Disposition: 01:58 Departure Disposition: In-patient Admission (per Dr Rubio for Dr Stanley Graves) Clinical Impression: Acute gangrenous cholecystitis, Atrial fibrillation Condition: Stable Critical Care Time: No Referrals: COURTNEY JOHNSON [Primary Care Provider] -
[2018-10-15] MEDS ORDERED: MORPHINE SULFATE 10 MG/ML IV ONE (00:20)
[2018-10-15] MEDS ORDERED: Zofran 4 MG/2 ML VIAL IV ONE (00:20)
[2018-10-15] MEDS ORDERED: Sodium Chloride 0.9% 1000 ML 1,000 ML IV STA (00:20)
[2018-10-15] MEDS ORDERED: Sodium Chloride 0.9% 1000 ML 1,000 ML ONE (00:25)
[2018-10-15] MEDS ORDERED: Zofran 4 MG/2 ML VIAL ONE (00:25)
[2018-10-15] MEDS ORDERED: MORPHINE SULFATE 10 MG/ML ONE (00:25)
[2018-10-15 01:06] LABS: BASOPHIL % 0.5 % (0.0-0.4); Basophil (Absolute #) 0.06 (0-0.4); Eosinophil % 1.6 % (0.00-5.0); Eosinophil (Absolute #) 0.21 (0-0.5); Granulocyte Absolute (ANC) 11.04 (1.4-6.9); Granulocytes % 82.8 % (36.0-66.0); Hematocrit 42.9 % (42-50); Hemoglobin 13.6 gm/dl (12.5-18.0); Lymphocyte (Absolute #) 0.66 (1.0-4.6); Mean Cell Volume 94.5 fl (78-100); Mean Corpuscular Hgb Concent. 31.7 g/dl (32-36); Monocyte (Absolute #) 1.35 (0.0-1.3); Monocytes % 10.1 % (0.0-12.0); Platelet Count 311 K/mm3 (150-450); Red Blood Count 4.54 M/mm3 (4.1-5.6); Red Cell Distribution Width 13.9 % (11.5-14.0); White Blood Count 13.3 K/mm3 (4.0-10.5)
[2018-10-15 01:14] LABS: INR 2.88 (0.8-3.0); PROTIME 33.8 SECONDS (8.83-12.87)
[2018-10-15 01:18] LABS: ALBUMIN 4.1 g/dL (3.5-5.0); ALKALINE PHOSPHATASE 68 U/L (38-126); AMYLASE 70 U/L (30-110); ANION GAP 14.2 MEQ/L (5-15); BLOOD UREA NITROGEN 10 mg/dL (9-20); CHLORIDE 100 mmol/L (98-107); Calcium 9.6 mg/dL (8.4-10.2); Carbon Dioxide 26 mmol/L (22-30); Creatinine 1 0.75 mg/dL (0.66-1.25); Glucose 129 mg/dL (74-106); LIPASE 92 U/L (23-300); Potassium 3.8 mmol/L (3.5-5.1); SGOT/AST 16 U/L (17-59); SGPT/ALT 17 U/L (0-50); SODIUM 136 mmol/L (137-145); Total Protein 7.4 g/dL (6.3-8.2)
[2018-10-15 01:30] LABS: Appearance CLEAR (CLEAR); Bilirubin NEGATIVE (NEGATIVE); Blood MODERATE Ery/ul (0-5); Glucose NEGATIVE (NEGATIVE); Ketones TRACE (NEGATIVE); Leukocyte Esterase NEGATIVE (NEGATIVE); Mucus SLIGHT /HPF (NEGATIVE); Nitrite NEGATIVE (NEGATIVE); Protein,Urine Dip NEGATIVE (Negative); RBC 0-2 /HPF (0-2); Specific Gravity 1.019 (1.005-1.025); Urobilinogen 2 mg/dL (0-1); WBC 0-2 /HPF (0-5)
[2018-10-15 01:31] LABS: Bacteria NONE SEEN /HPF (NEGATIVE)
[2018-10-15] MEDS ORDERED: Unasyn 3GM / NaCl 100ML 3 GM/100 ML IVPB IV STA (01:59)
[2018-10-15] MEDS ORDERED: TYLENOL 325 MG PO STA (02:01)
[2018-10-15] MEDS ORDERED: TYLENOL 325 MG ONE (02:03)
[2018-10-15] MEDS ORDERED: Unasyn 3GM / NaCl 100ML 3 GM/100 ML IVPB ONE (02:03)
[2018-10-15] MEDS ORDERED: TYLENOL 325 MG PO PRN (02:36)
[2018-10-15] MEDS ORDERED: Zofran 4 MG/2 ML VIAL IV PRN (02:36)
[2018-10-15] MEDS ORDERED: MORPHINE SULFATE 4 MG INJ IV PRN (02:36)
[2018-10-15] MEDS: Sodium Chloride 0.9% 1000 ML 1,000 ML IV SCH ×2 (02:46→16:09)
[2018-10-15] MEDS ORDERED: PROVENTIL COMMON CANISTER IH PRN (03:23)
[2018-10-15] MEDS ORDERED: Unasyn 3GM / NaCl 100ML 3 GM/100 ML IVPB IV SCH (06:00)
[2018-10-15] MEDS: Advair Hfa 115/21 Common canister IH SCH ×2 (07:31→19:58)
--- NOTE | 2018-10-15 08:05 | XRAY ---
Indication: Right upper quadrant pain. Multiple contiguous axial images obtained through the abdomen and pelvis without contrast as ordered. Comparison: September 19, 2018. Lung bases again demonstrates mild bibasilar atelectasis/scarring and tiny effusions. Partially visualized patchy right middle lobe opacity not previously included in the [id number]. Heart is not enlarged. Again abnormally distended gallbladder with gallstones, wall thickening, and pericholecystic fluid concerning for cholecystitis. Noncontrasted stomach and bowel loops appear nonobstructed again with colonic diverticulosis and previous appendectomy. No free fluid/air. Stable enlarged prostate gland. Remaining liver, pancreas, spleen, adrenal glands, kidneys, ureters, and bladder appear unremarkable for noncontrast exam. Stable moderate aortoiliac ossification is without AAA. Impression: 1. Again abnormal distended gallbladder with cholelithiasis and CT features favoring cholecystitis. 2. New partially visualized right middle lobe opacity, infiltrate versus atelectasis. Correlate clinically. Chest radiograph may yield further information. 3. Stable colonic diverticulosis, enlarged prostate gland, and bibasilar effusions. Comment: Preliminary interpretation was made by C. No discrepancy. CTDI 22.86
[2018-10-15] MEDS ORDERED: PHARMACY DOSING REQUEST MC ONE (10:38)
--- NOTE | 2018-10-15 12:04 | PCM.HP ---
History of Present Illness - Chief Complaint Chief Complaint: cholecystitis History of Present Illness: is a 77 year old male who presented to the ER last night with RUQ abd pain that was severe, there was no nausea or vomiting, no known fever. Has known gallstones and was scheduled for surgery on 10/24/18, in ER CT showed acute cholecystitis changes, he has been seen by surgery and request holding Eliquis at this time and await for surgery on 10/17/18, was given unasyn in ER, surgery ordered zosyn today. - Review of Systems Respiratory: No Cough, No Short Of Breath Cardiac: No Chest Pain, No Edema, No Syncope Abdominal/Gastrointestinal: Abdominal Pain, No Nausea, No Vomiting, No Diarrhea Skin: No Rash All Other Systems: Reviewed and Negative Medications & Allergies Home Medications: Home Medication List Albuterol Sulfate [Proair Hfa] 8.5 gm IH Q4-6HPRN PRN 09/16/18 [History Confirmed 10/15/18] Fluticasone/Salmeterol [Advair 250-50 Diskus] 2 each IH BID 09/16/18 [History Confirmed 10/15/18] Montelukast Sodium 10 mg [Singulair 10 MG] 10 mg PO HS 09/16/18 [History Confirmed 10/15/18] Potassium Chloride 10 Meq Tab* [Klor Con 10 MEQ] 20 meq PO BID 09/16/18 [ History Confirmed 10/15/18] Pravastatin Sodium 40 mg PO HS 09/16/18 [History Confirmed 10/15/18] Theophylline Anhydrous 300 mg* [Theodur 300MG] 300 mg PO BID 09/16/18 [ History Confirmed 10/15/18] Apixaban [Eliquis] 5 mg PO BID 09/19/18 [History Confirmed 10/15/18] Metoprolol Tartrate [Lopressor] 50 mg PO BID 09/19/18 [History Confirmed ] Digoxin 0.125 mg Tablet [Lanoxin 0.125MG TABLET] 0.125 mg PO HS 10/14/18 [ History Confirmed 10/15/18] Benzonatate [Tessalon Perle] 100 mg PO TIDPRN PRN 10/15/18 [History Confirmed ] Allergies/Adverse Reactions: Allergies Allergy/AdvReac Type Severity Reaction Status Date / Time No Known Drug Allergies Allergy Verified 09/19/18 15:25 - Past Medical History Past Medical History: Yes Neurological History: No Pertinent History ENT History: No Pertinent History Cardiac History: Arrhythmia, Hypertension, Other Respiratory History: COPD Endocrine Medical History: No Pertinent History Musculoskelatal History: No Pertinent History GI Medical History: No Pertinent History History: No Pertinent History Pyscho-Social History: No Pertinent History Male Reproductive Disorders: No Pertinent History Comment: heart cath 2012 - Past Surgical History Past Surgical History: Yes Neuro Surgical History: No Pertinent History Cardiac History: Cardiac Catheterization Respiratory Surgery: No Pertinent History GI Surgical History: Appendectomy Genitourinary Surgical Hx: No Pertinent History Musculskeletal Surgical Hx: Joint Replacement, Other Male Surgical History: No Pertinent History Other Surgical History: bilat knees replacement, L wrist ganglion cyst - Social History Smoking Status: Former smoker Exposure to second hand smoke: No Alcohol: Occasionally Drug Use: none - Physical Exam Vital Signs: Vital Signs - 24 hr Temp Pulse Resp BP Pulse Ox 10/15/18 11:53 98.0 F 98 H 18 138/67 94 L 10/15/18 07:39 98.1 F 89 17 107/63 93 L 10/15/18 07:36 113 H 18 96 10/15/18 03:54 99.6 F 97 H 17 119/72 94 L 10/15/18 03:18 97 H 17 94 L 10/15/18 02:57 99.6 F 109 H 18 119/72 94 L 10/15/18 02:12 88 16 111/76 94 L 10/15/18 01:11 100.2 F 104 H 16 112/95 94 L 10/14/18 23:52 100.2 F 111 H 155/113 95 General Appearance: no apparent distress, alert, obese Respiratory Exam: normal breath sounds, lungs clear, No respiratory distress Cardiovascular Exam: regular rate/rhythm, normal heart sounds, normal peripheral pulses Gastrointestinal/Abdomen Exam: soft, tenderness (RUQ), No guarding, No rebound Extremity Exam: normal inspection, normal range of motion, pelvis stable Skin Exam: normal color, warm, dry, No rash Results - Labs Lab/Micro Results: Lab Results-Last 24 Hours 10/15/18 10/15/18 10/15/18 Range/Units 00:20 01:02 01:02 WBC 13.3 H (4.0-10.5) K/mm3 RBC 4.54 (4.1-5.6) M/mm3 Hgb 13.6 (12.5-18.0) gm/dl Hct 42.9 (42-50) % MCV 94.5 (78-100) fl MCH 30.0 (26-32) pg MCHC 31.7 L (32-36) g/dl RDW 13.9 (11.5-14.0) % Plt Count 311 (150-450) K/mm3 MPV 11.0 H (6-9.5) fl Gran % 82.8 H (36.0-66.0) % Eos # (Auto) 0.21 (0-0.5) Absolute Lymphs (auto) 0.66 L (1.0-4.6) Absolute Monos (auto) 1.35 H (0.0-1.3) Lymphocytes % 5.0 L (24.0-44.0) % Monocytes % 10.1 (0.0-12.0) % Eosinophils % 1.6 (0.00-5.0) % Basophils % 0.5 (0.0-0.4) % Absolute Granulocytes 11.04 H (1.4-6.9) Basophils # 0.06 (0-0.4) PT (8.83-12.87) SECONDS INR (0.8-3.0) Sodium 136 L (137-145) mmol/L Potassium 3.8 (3.5-5.1) mmol/L Chloride 100 (98-107) mmol/L Carbon Dioxide 26 (22-30) mmol/L Anion Gap 14.2 (5-15) MEQ/L BUN 10 (9-20) mg/dL Creatinine 0.75 (0.66-1.25) mg/dL Estimated GFR > 60.0 ML/MIN Glucose 129 H (74-106) mg/dL Lactic Acid 1.6 (0.4-2.0) Calcium 9.6 (8.4-10.2) mg/dL Total Bilirubin 1.20 (0.2-1.3) mg/dL AST 16 L (17-59) U/L ALT 17 (0-50) U/L Alkaline Phosphatase 68 (38-126) U/L Troponin I (0.000-0.034) ng/mL Serum Total Protein 7.4 (6.3-8.2) g/dL Albumin 4.1 (3.5-5.0) g/dL Amylase 70 (30-110) U/L Lipase 92 (23-300) U/L Urine Color (YELLOW) Urine Appearance (CLEAR) Urine pH (5-6) Ur Specific [place] (1.005-1.025) Urine Protein (Negative) Urine Ketones (NEGATIVE) Urine Blood (0-5) Keegan/ul Urine Nitrite (NEGATIVE) Urine Bilirubin (NEGATIVE) Urine Urobilinogen (0-1) mg/dL Ur Leukocyte Esterase (NEGATIVE) Urine WBC (Auto) (0-5) /HPF Urine RBC (Auto) (0-2) /HPF U Epithel Cells (Auto) (FEW) /HPF Urine Bacteria (Auto) (NEGATIVE) /HPF Urine Mucus (Auto) (NEGATIVE) /HPF Urine Culture Reflexed (NO) Urine Glucose (NEGATIVE) mg/dL 10/15/18 10/15/18 10/15/18 Range/Units 01:02 01:02 01:02 WBC (4.0-10.5) K/mm3 RBC (4.1-5.6) M/mm3 Hgb (12.5-18.0) gm/dl Hct (42-50) % MCV (78-100) fl MCH (26-32) pg MCHC (32-36) g/dl RDW (11.5-14.0) % Plt Count (150-450) K/mm3 MPV (6-9.5) fl Gran % (36.0-66.0) % Eos # (Auto) (0-0.5) Absolute Lymphs (auto) (1.0-4.6) Absolute Monos (auto) (0.0-1.3) Lymphocytes % (24.0-44.0) % Monocytes % (0.0-12.0) % Eosinophils % (0.00-5.0) % Basophils % (0.0-0.4) % Absolute Granulocytes (1.4-6.9) Basophils # (0-0.4) PT 33.8 H (8.83-12.87) SECONDS INR 2.88 (0.8-3.0) Sodium (137-145) mmol/L Potassium (3.5-5.1) mmol/L Chloride (98-107) mmol/L Carbon Dioxide (22-30) mmol/L Anion Gap (5-15) MEQ/L BUN (9-20) mg/dL Creatinine (0.66-1.25) mg/dL Estimated GFR ML/MIN Glucose (74-106) mg/dL Lactic Acid (0.4-2.0) Calcium (8.4-10.2) mg/dL Total Bilirubin (0.2-1.3) mg/dL AST (17-59) U/L ALT (0-50) U/L Alkaline Phosphatase (38-126) U/L Troponin I 0.036 H* (0.000-0.034) ng/mL Serum Total Protein (6.3-8.2) g/dL Albumin (3.5-5.0) g/dL Amylase (30-110) U/L Lipase (23-300) U/L Urine Color YELLOW (YELLOW) Urine Appearance CLEAR (CLEAR) Urine pH 5.0 (5-6) Ur Specific [place] 1.019 (1.005-1.025) Urine Protein NEGATIVE (Negative) Urine Ketones TRACE (NEGATIVE) Urine Blood MODERATE (0-5) Keegan/ul Urine Nitrite NEGATIVE (NEGATIVE) Urine Bilirubin NEGATIVE (NEGATIVE) Urine Urobilinogen 2 (0-1) mg/dL Ur Leukocyte Esterase NEGATIVE (NEGATIVE) Urine WBC (Auto) 0-2 (0-5) /HPF Urine RBC (Auto) 0-2 (0-2) /HPF U Epithel Cells (Auto) NONE (FEW) /HPF Urine Bacteria (Auto) NONE SEEN (NEGATIVE) /HPF Urine Mucus (Auto) SLIGHT (NEGATIVE) /HPF Urine Culture Reflexed NO (NO) Urine Glucose NEGATIVE (NEGATIVE) mg/dL 10/15/18 10/15/18 10/15/18 Range/Units 03:33 06:32 09:30 WBC (4.0-10.5) K/mm3 RBC (4.1-5.6) M/mm3 Hgb (12.5-18.0) gm/dl Hct (42-50) % MCV (78-100) fl MCH (26-32) pg MCHC (32-36) g/dl RDW (11.5-14.0) % Plt Count (150-450) K/mm3 MPV (6-9.5) fl Gran % (36.0-66.0) % Eos # (Auto) (0-0.5) Absolute Lymphs (auto) (1.0-4.6) Absolute Monos (auto) (0.0-1.3) Lymphocytes % (24.0-44.0) % Monocytes % (0.0-12.0) % Eosinophils % (0.00-5.0) % Basophils % (0.0-0.4) % Absolute Granulocytes (1.4-6.9) Basophils # (0-0.4) PT (8.83-12.87) SECONDS INR (0.8-3.0) Sodium (137-145) mmol/L Potassium (3.5-5.1) mmol/L Chloride (98-107) mmol/L Carbon Dioxide (22-30) mmol/L Anion Gap (5-15) MEQ/L BUN (9-20) mg/dL Creatinine (0.66-1.25) mg/dL Estimated GFR ML/MIN Glucose (74-106) mg/dL Lactic Acid (0.4-2.0) Calcium (8.4-10.2) mg/dL Total Bilirubin (0.2-1.3) mg/dL AST (17-59) U/L ALT (0-50) U/L Alkaline Phosphatase (38-126) U/L Troponin I 0.039 H* 0.032 0.026 (0.000-0.034) ng/mL Serum Total Protein (6.3-8.2) g/dL Albumin (3.5-5.0) g/dL Amylase (30-110) U/L Lipase (23-300) U/L Urine Color (YELLOW) Urine Appearance (CLEAR) Urine pH (5-6) Ur Specific [place] (1.005-1.025) Urine Protein (Negative) Urine Ketones (NEGATIVE) Urine Blood (0-5) Keegan/ul Urine Nitrite (NEGATIVE) Urine Bilirubin (NEGATIVE) Urine Urobilinogen (0-1) mg/dL Ur Leukocyte Esterase (NEGATIVE) Urine WBC (Auto) (0-5) /HPF Urine RBC (Auto) (0-2) /HPF U Epithel Cells (Auto) (FEW) /HPF Urine Bacteria (Auto) (NEGATIVE) /HPF Urine Mucus (Auto) (NEGATIVE) /HPF Urine Culture Reflexed (NO) Urine Glucose (NEGATIVE) mg/dL - Radiology Impressions Radiology Exams & Impressions: Radiology Procedures Category Date Time Status ABDOMEN AND PELVIS W/0 CONTRAS [CT] Stat Exams 10/15/18 00:20 Completed GALLBLADDER [US] Routine Exams 10/17/18 07:00 Ordered - Other Procedures and Tests Respiratory Therapy 10/15/18 03:24 Peak Expiratory Flow Rate ONCE Respiratory Therapy Assessment DAILY Assessment/Plan (1) Acute gangrenous cholecystitis Current Visit: Yes Status: Acute Assessment & Plan: continue IV zosyn, clear liquids. appreciate surgery input. Code(s): K81.0 - ACUTE CHOLECYSTITIS (2) Atrial fibrillation Current Visit: Yes Status: Acute Assessment & Plan: hold eliquis per surgery request, continue digoxin and lopressor at this time. rate is currently controlled. no anticoagulants at this time per surgery request Code(s): I48.91 - UNSPECIFIED ATRIAL FIBRILLATION
[2018-10-15] MEDS: Zosyn 3.375GM/100 Ml D5W 3.375 GM/100 ML IVPB IV SCH ×3 (12:17→23:37)
[2018-10-15 12:56] LABS: ALBUMIN 3.7 g/dL (3.5-5.0); BILIRUBIN,TOTAL 1.3 mg/dL (0.2-1.3); Direct Bilirubin 0.6 mg/dL (0.0-0.4); TROPONIN 0.023 ng/mL (0.000-0.034); Total Protein 6.7 g/dL (6.3-8.2)
[2018-10-15] MEDS ORDERED: Ventolin Hfa MDI IH PRN (13:10)
[2018-10-15] MEDS: Klor Con 10 MEQ PO SCH ×2 (14:44→22:29)
[2018-10-15] MEDS: Lopressor 50 MG PO SCH ×2 (14:44→22:29)
[2018-10-15] MEDS: THEOPHYLLINE ER 24HR PO SCH (14:45)
[2018-10-15] MEDS: ENOXAPARIN SODIUM SQ SCH (14:47)
--- NOTE | 2018-10-15 19:03 | XRAY ---
Indication: Right middle lobe opacity on recent CT abdomen. Comparison: September 16, 2018. Portable chest demonstrates new right infrahilar infiltrate/atelectasis and small effusion. Remaining heart and left lung unremarkable. Bony thorax intact again with degenerative changes.
[2018-10-15] MEDS ORDERED: THEOPHYLLINE ANHYDROUS 300 MG PO SCH (22:00)
[2018-10-15] MEDS ORDERED: NON-FORMULARY ITEM (Pravastatin Sodium [Pravastatin Sodium] 40 MG) PO SCH (22:00)
[2018-10-15] MEDS: Lanoxin 0.125MG TABLET PO SCH (22:29)
[2018-10-15] MEDS: ZOCOR 20MG PO SCH (22:30)
[2018-10-15] MEDS: Singulair 10 MG PO SCH (22:30)
[2018-10-16] MEDS: ENOXAPARIN SODIUM SQ SCH (01:43)
[2018-10-16] MEDS: Sodium Chloride 0.9% 1000 ML 1,000 ML IV SCH ×2 (03:04→17:05)
[2018-10-16 05:42] LABS: BASOPHIL % 0.1 % (0.0-0.4); Basophil (Absolute #) 0.01 (0-0.4); Eosinophil % 2.8 % (0.00-5.0); Eosinophil (Absolute #) 0.21 (0-0.5); Granulocyte Absolute (ANC) 5.67 (1.4-6.9); Hematocrit 42.5 % (42-50); Hemoglobin 13.3 gm/dl (12.5-18.0); Lymphocyte (Absolute #) 0.78 (1.0-4.6); Lymphocytes % 10.4 % (24.0-44.0); Mean Cell Volume 95.3 fl (78-100); Mean Corpuscular Hemoglobin 29.8 pg (26-32); Mean Corpuscular Hgb Concent. 31.3 g/dl (32-36); Mean Platelet Volume 10.5 fl (6-9.5); Monocytes % 10.7 % (0.0-12.0); Platelet Count 285 K/mm3 (150-450); Red Blood Count 4.46 M/mm3 (4.1-5.6); Red Cell Distribution Width 13.9 % (11.5-14.0); White Blood Count 7.5 K/mm3 (4.0-10.5)
[2018-10-16] MEDS: Zosyn 3.375GM/100 Ml D5W 3.375 GM/100 ML IVPB IV SCH ×4 (05:57→23:36)
[2018-10-16 06:00] LABS: ALBUMIN 3.8 g/dL (3.5-5.0); ALKALINE PHOSPHATASE 63 U/L (38-126); ANION GAP 13.5 MEQ/L (5-15); BLOOD UREA NITROGEN 9 mg/dL (9-20); CHLORIDE 104 mmol/L (98-107); Calcium 9.3 mg/dL (8.4-10.2); Carbon Dioxide 24 mmol/L (22-30); Creatinine 1 0.68 mg/dL (0.66-1.25); Glucose 101 mg/dL (74-106); Potassium 4.1 mmol/L (3.5-5.1); SGOT/AST 16 U/L (17-59); SGPT/ALT 18 U/L (0-50); SODIUM 138 mmol/L (137-145)
[2018-10-16] MEDS: Advair Hfa 115/21 Common canister IH SCH ×2 (07:14→19:30)
--- NOTE | 2018-10-16 08:54 | PCM.NOTE ---
Date and Time: 10/16/18 0853 Subjective Assessment: pain has improved, no nausea or vomiting. tolerating clear liquid diet. no complaints today Objective Exam General Appearance: no apparent distress, alert Respiratory Exam: normal breath sounds, lungs clear, No respiratory distress Cardiovascular Exam: regular rate/rhythm, normal heart sounds Gastrointestinal/Abdomen Exam: soft, No tenderness, No mass Extremity Exam: normal inspection, normal range of motion OBJECTIVE DATA Vital Signs: Vital Signs - 24 hr Temp Pulse Resp BP BP Pulse Ox 10/16/18 07:40 98.1 F 103 H 18 135/85 93 L 10/16/18 07:15 102 H 16 93 L 10/16/18 00:03 97.9 F 102 H 16 134/87 93 L 10/15/18 22:29 96 H 134/87 10/15/18 19:58 98.1 F 99 H 16 118/72 92 L 10/15/18 16:21 98.0 F 85 18 115/82 96 10/15/18 11:53 98.0 F 98 H 18 138/67 94 L Pain Assessment - Last Documented Pain Intensity 0 Pain Scale Used 0-10 Pain Scale Intake and Output: Intake & Output 10/13/18 10/14/18 10/15/18 10/16/18 11:59 11:59 11:59 11:59 Intake Total 3836 Output Total 1150 Balance 2686 Weight 89.7 kg Lab Results: Lab Results-Last 24 Hours 10/15/18 10/15/18 10/16/18 Range/Units 09:30 12:30 05:20 WBC 7.5 (4.0-10.5) K/mm3 RBC 4.46 (4.1-5.6) M/mm3 Hgb 13.3 (12.5-18.0) gm/dl Hct 42.5 (42-50) % MCV 95.3 (78-100) fl MCH 29.8 (26-32) pg MCHC 31.3 L (32-36) g/dl RDW 13.9 (11.5-14.0) % Plt Count 285 (150-450) K/mm3 MPV 10.5 H (6-9.5) fl Gran % 76.0 H (36.0-66.0) % Eos # (Auto) 0.21 (0-0.5) Absolute Lymphs (auto) 0.78 L (1.0-4.6) Absolute Monos (auto) 0.80 (0.0-1.3) Lymphocytes % 10.4 L (24.0-44.0) % Monocytes % 10.7 (0.0-12.0) % Eosinophils % 2.8 (0.00-5.0) % Basophils % 0.1 (0.0-0.4) % Absolute Granulocytes 5.67 (1.4-6.9) Basophils # 0.01 (0-0.4) Sodium (137-145) mmol/L Potassium (3.5-5.1) mmol/L Chloride (98-107) mmol/L Carbon Dioxide (22-30) mmol/L Anion Gap (5-15) MEQ/L BUN (9-20) mg/dL Creatinine (0.66-1.25) mg/dL Estimated GFR ML/MIN Glucose (74-106) mg/dL Calcium (8.4-10.2) mg/dL Total Bilirubin 1.30 (0.2-1.3) mg/dL Direct Bilirubin 0.6 H (0.0-0.4) mg/dL AST 14 L (17-59) U/L ALT 16 (0-50) U/L Alkaline Phosphatase 62 (38-126) U/L Troponin I 0.026 0.023 (0.000-0.034) ng/mL Serum Total Protein 6.7 (6.3-8.2) g/dL Albumin 3.7 (3.5-5.0) g/dL 10/16/18 Range/Units 05:20 WBC (4.0-10.5) K/mm3 RBC (4.1-5.6) M/mm3 Hgb (12.5-18.0) gm/dl Hct (42-50) % MCV (78-100) fl MCH (26-32) pg MCHC (32-36) g/dl RDW (11.5-14.0) % Plt Count (150-450) K/mm3 MPV (6-9.5) fl Gran % (36.0-66.0) % Eos # (Auto) (0-0.5) Absolute Lymphs (auto) (1.0-4.6) Absolute Monos (auto) (0.0-1.3) Lymphocytes % (24.0-44.0) % Monocytes % (0.0-12.0) % Eosinophils % (0.00-5.0) % Basophils % (0.0-0.4) % Absolute Granulocytes (1.4-6.9) Basophils # (0-0.4) Sodium 138 (137-145) mmol/L Potassium 4.1 (3.5-5.1) mmol/L Chloride 104 (98-107) mmol/L Carbon Dioxide 24 (22-30) mmol/L Anion Gap 13.5 (5-15) MEQ/L BUN 9 (9-20) mg/dL Creatinine 0.68 (0.66-1.25) mg/dL Estimated GFR > 60.0 ML/MIN Glucose 101 (74-106) mg/dL Calcium 9.3 (8.4-10.2) mg/dL Total Bilirubin 1.20 (0.2-1.3) mg/dL Direct Bilirubin (0.0-0.4) mg/dL AST 16 L (17-59) U/L ALT 18 (0-50) U/L Alkaline Phosphatase 63 (38-126) U/L Troponin I (0.000-0.034) ng/mL Serum Total Protein 7.0 (6.3-8.2) g/dL Albumin 3.8 (3.5-5.0) g/dL Radiology Exams: Radiology Procedures Category Date Time Status ABDOMEN AND PELVIS W/0 CONTRAS [CT] Stat Exams 10/15/18 00:20 Completed CHEST 1 VIEW (PORTABLE) Routine Exams 10/15/18 12:07 Completed GALLBLADDER [US] Routine Exams 10/17/18 07:00 Ordered Assessment/Plan (1) Acute gangrenous cholecystitis Current Visit: Yes Status: Acute Assessment & Plan: on zosyn, planning for surgery tomorrow. Code(s): K81.0 - ACUTE CHOLECYSTITIS (2) Atrial fibrillation Current Visit: Yes Status: Acute Assessment & Plan: was given lovenox last night and this am, no more after dose this morning per surgery request. Code(s): I48.91 - UNSPECIFIED ATRIAL FIBRILLATION
[2018-10-16] MEDS: Lopressor 50 MG PO SCH ×2 (10:03→21:58)
[2018-10-16] MEDS: Klor Con 10 MEQ PO SCH ×2 (10:03→21:56)
[2018-10-16] MEDS: THEOPHYLLINE ER 24HR PO SCH (10:04)
[2018-10-16] MEDS: Lanoxin 0.125MG TABLET PO SCH (21:56)
[2018-10-16] MEDS: Singulair 10 MG PO SCH (21:57)
[2018-10-16] MEDS: ZOCOR 20MG PO SCH (21:57)
[2018-10-17] MEDS: Sodium Chloride 0.9% 1000 ML 1,000 ML IV SCH (05:02)
[2018-10-17] MEDS: Zosyn 3.375GM/100 Ml D5W 3.375 GM/100 ML IVPB IV SCH ×3 (05:09→19:28)
[2018-10-17 05:52] LABS: BASOPHIL % 0.7 % (0.0-0.4); Basophil (Absolute #) 0.05 (0-0.4); Eosinophil % 1.8 % (0.00-5.0); Eosinophil (Absolute #) 0.13 (0-0.5); Granulocyte Absolute (ANC) 5.37 (1.4-6.9); Granulocytes % 72.5 % (36.0-66.0); Hematocrit 40.5 % (42-50); Hemoglobin 12.8 gm/dl (12.5-18.0); Lymphocyte (Absolute #) 1.03 (1.0-4.6); Lymphocytes % 13.9 % (24.0-44.0); Mean Cell Volume 94.8 fl (78-100); Mean Corpuscular Hgb Concent. 31.6 g/dl (32-36); Mean Platelet Volume 10.8 fl (6-9.5); Monocyte (Absolute #) 0.82 (0.0-1.3); Monocytes % 11.1 % (0.0-12.0); Platelet Count 291 K/mm3 (150-450); Red Blood Count 4.27 M/mm3 (4.1-5.6); Red Cell Distribution Width 13.7 % (11.5-14.0); White Blood Count 7.4 K/mm3 (4.0-10.5)
[2018-10-17 06:00] LABS: ALBUMIN 3.7 g/dL (3.5-5.0); ALKALINE PHOSPHATASE 61 U/L (38-126); ANION GAP 14.6 MEQ/L (5-15); BLOOD UREA NITROGEN 9 mg/dL (9-20); CHLORIDE 104 mmol/L (98-107); Calcium 9.4 mg/dL (8.4-10.2); Carbon Dioxide 25 mmol/L (22-30); Creatinine 1 0.76 mg/dL (0.66-1.25); Glucose 89 mg/dL (74-106); Potassium 4.3 mmol/L (3.5-5.1); SGOT/AST 18 U/L (17-59); SGPT/ALT 17 U/L (0-50); SODIUM 139 mmol/L (137-145); Total Protein 6.8 g/dL (6.3-8.2)
[2018-10-17] MEDS: Advair Hfa 115/21 Common canister IH SCH (06:27)
[2018-10-17] MEDS ORDERED: Sensorcaine 0.25% 10 ML ONE ×2 (06:55→15:25)
[2018-10-17] MEDS ORDERED: Lactated Ringers 0 ML IV ONE (06:56)
[2018-10-17] MEDS ORDERED: MEFOXIN 2 GM PREMIX** 2 GM/50 ML ML IV SCH (07:00)
[2018-10-17] MEDS ORDERED: Lactated Ringers 1,000 ML IV SCH (07:00)
--- NOTE | 2018-10-17 08:13 | CONS ---
CONSULT DATE: 10/15/2018 REASON FOR CONSULT: Abdominal pain. HISTORY: This patient has chronic calculus cholecystitis over the last several months with right lower quadrant pain especially after eating. He has had a prior emergency room visit for one such attack. He has been seen by my partner, Dr. Cunha, a few weeks ago in the office. He was scheduled for elected cholecystectomy in the coming weeks. He had a severe attack yesterday that brought him to the emergency department. It was after dinner with sharp cramping pain in the right upper quadrant. It felt fairly similar to his prior attacks. The pain is still present today but it is much less severe and more of a dull pain now. He denies any chest pain, shortness of breath, dysuria, fevers, chills, nausea, vomiting. PAST MEDICAL HISTORY: Atrial fibrillation, hypertension, chronic obstructive pulmonary disease. PAST SURGICAL HISTORY: Appendectomy, bilateral knee replacement. MEDICATIONS: Reviewed the MAR including Eliquis which he had at 2000 hours yesterday. ALLERGIIES: NKDA. SOCIAL HISTORY: Remote tobacco. Occasional alcohol. FAMILY HISTORY: Dad with cancer that he is unsure of and in his 30"s. REVIEW OF SYSTEMS: Negative except as noted in history of present illness. PHYSICAL EXAMINATION: GENERAL: No acute distress. HEENT: Sclera nonicteric. Extraocular movements intact. NECK: Supple. No JVD. CHEST: Nonlabored breathing. ABDOMEN: Soft, nondistended, focally tender in right lower quadrant with voluntary guarding. NEURO: Awake, alert and oriented. PSYCH: Appropriate mood and affect. LAB DATA AND TESTS: White blood cell 13.3, hemoglobin 13.6, PLT 311,000. International normalized ratio 2.88. Troponins 0.036. Bilirubin 1.2, alkaline phosphatase 68, creatinine 0.75. CT scan shows acute calculus cholecystitis. ASSESSMENT: Acute calculus cholecystitis. PLAN: Plan for IV antibiotics and we will wait for his Eliquis is out of his system with plans for likely laparoscopic possible open cholecystectomy on Wednesday. Please hold the patient's blood thinners. CT scan personally reviewed and is consistent with acute calculus cholecystitis. I see no air or any other findings concerning for emphysematous cholecystitis or other more origin problems. The patient looks quite well. If the patient deteriorates and needs intervention more urgently, he will need transferred for percutaneous cholecystostomy tube placement. However, he does not appear to need this at this time and we will plan for gallbladder surgery on Wednesday.
--- NOTE | 2018-10-17 09:09 | PCM.NOTE ---
Date and Time: 10/17/18903 Subjective Assessment: Patient reports his pain is better now but was having pain in his right lower quadrant. He states when he came in he was having fever. He reports he was also having a lot of gas and constipation but no nausea or vomiting. He states he has felt a little light headed. His policy service coordinator is Dr. Orantes and per the patient has cleared him for surgery already. He denies any chest pain or shortness of breath. Patient reports his cough is the same. He denies being confused overnight when he took his monitors and SCD's off. He states he just couldn't sleep with all of that on him. - Review of Systems Constitutional: No Symptoms Eyes: No Symptoms Ears, Nose, & Throat: No Symptoms Respiratory: Cough Cardiac: No Symptoms Abdominal/Gastrointestinal: Abdominal Pain Genitourinary Symptoms: Other (harder to get stream stared) Musculoskeletal: No Symptoms Skin: No Symptoms Objective Exam General Appearance: no apparent distress Neurologic Exam: alert, cooperative, normal mood/affect, other (talkative) Skin Exam: normal color, warm, dry, No rash Respiratory Exam: other (fine crackles at bases bilat, no wheezing, equal breath sounds, no tachypnea) Cardiovascular Exam: regular rate/rhythm, normal heart sounds, No murmur, No friction rub, No gallop Gastrointestinal/Abdomen Exam: soft, normal bowel sounds, No tenderness, No distention, No mass, No guarding Extremity Exam: normal inspection, other (no c/c/e) OBJECTIVE DATA Vital Signs: Vital Signs - 24 hr Temp Pulse Resp BP BP Pulse Ox 10/17/18 06:28 93 H 18 95 10/17/18 04:14 98.0 F 100 H 18 140/84 94 L 10/17/18 00:00 97.7 F 106 H 18 126/87 96 10/16/18 21:56 106 H 134/99 10/16/18 19:32 98.1 F 106 H 18 134/99 96 10/16/18 19:30 93 H 18 93 L 10/16/18 16:00 97.8 F 94 H 18 134/78 97 10/16/18 12:13 97.9 F 104 H 17 143/74 93 L Pain Assessment - Last Documented Pain Intensity 0 Pain Scale Used 0-10 Pain Scale Intake and Output: Intake & Output 10/15/18 10/16/18 10/17/18 10/18/18 06:59 06:59 06:59 06:59 Intake Total 3837 2964 Output Total 1157 150 Balance 8551 2066 Weight 89.7 kg Lab Results: Lab Results-Last 24 Hours 10/17/18 10/17/18 Range/Units 05:06 05:06 WBC 7.4 (4.0-10.5) K/mm3 RBC 4.27 (4.1-5.6) M/mm3 Hgb 12.8 (12.5-18.0) gm/dl Hct 40.5 L (42-50) % MCV 94.8 (78-100) fl MCH 30.0 (26-32) pg MCHC 31.6 L (32-36) g/dl RDW 13.7 (11.5-14.0) % Plt Count 291 (150-450) K/mm3 MPV 10.8 H (6-9.5) fl Gran % 72.5 H (36.0-66.0) % Eos # (Auto) 0.13 (0-0.5) Absolute Lymphs (auto) 1.03 (1.0-4.6) Absolute Monos (auto) 0.82 (0.0-1.3) Lymphocytes % 13.9 L (24.0-44.0) % Monocytes % 11.1 (0.0-12.0) % Eosinophils % 1.8 (0.00-5.0) % Basophils % 0.7 (0.0-0.4) % Absolute Granulocytes 5.37 (1.4-6.9) Basophils # 0.05 (0-0.4) Sodium 139 (137-145) mmol/L Potassium 4.3 (3.5-5.1) mmol/L Chloride 104 (98-107) mmol/L Carbon Dioxide 25 (22-30) mmol/L Anion Gap 14.6 (5-15) MEQ/L BUN 9 (9-20) mg/dL Creatinine 0.76 (0.66-1.25) mg/dL Estimated GFR > 60.0 ML/MIN Glucose 89 (74-106) mg/dL Calcium 9.4 (8.4-10.2) mg/dL Total Bilirubin 1.20 (0.2-1.3) mg/dL AST 18 (17-59) U/L ALT 17 (0-50) U/L Alkaline Phosphatase 61 (38-126) U/L Serum Total Protein 6.8 (6.3-8.2) g/dL Albumin 3.7 (3.5-5.0) g/dL Radiology Exams: Radiology Procedures Category Date Time Status CHEST 1 VIEW (PORTABLE) Routine Exams 10/15/18 12:07 Completed GALLBLADDER [US] Routine Exams 10/17/18 07:00 Ordered Assessment/Plan (1) Acute gangrenous cholecystitis Current Visit: Yes Status: Acute Assessment & Plan: General surgeon has been consulted and has seen the patient and per office workforce planner, they plan to do surgery today to remove his gallbladder. He is on IV zosyn. Code(s): K81.0 - ACUTE CHOLECYSTITIS (2) Atrial fibrillation Current Visit: Yes Status: Acute Assessment & Plan: Rate currently controlled and anticoagulation held for surgery today. Code(s): I48.91 - UNSPECIFIED ATRIAL FIBRILLATION (3) COPD (chronic obstructive pulmonary disease) Current Visit: Yes Status: Acute Assessment & Plan: Continue home medication; well controlled. (4) Chronic cough Current Visit: Yes Status: Acute Assessment & Plan: Patient has been scheduled to see an ENT as an outpatient. Code(s): R05 - COUGH
[2018-10-17] MEDS: Lopressor 50 MG PO SCH ×2 (09:41→22:06)
--- NOTE | 2018-10-17 12:10 | XRAY ---
Indication: Cholelithiasis. Two-dimensional gallbladder sonogram performed. Comparison: September 23, 2018. Gallbladder normally distended again with sludge and micro-calculi in the dependent portion. Again abnormal wall thickening measuring 3.5 mm. No pericholecystic fluid. Common bile duct measures 3.8 mm without intrahepatic biliary distention. Remaining visualized portions of the liver, pancreas, and right kidney again appear sonographically normal. Right kidney measures 11.8 cm in length. Impression: Stable abnormal appearing gallbladder again with sludge, micro-calculi, and wall thickening concerning for chronic cholecystitis.
[2018-10-17] MEDS: Klor Con 10 MEQ PO SCH ×2 (15:02→22:06)
[2018-10-17] MEDS: THEOPHYLLINE ER 24HR PO SCH (15:02)
[2018-10-17] MEDS ORDERED: NORCO 5/325 MG PO PRN (20:27)
[2018-10-17] MEDS ORDERED: Haldol 5 MG IM ONE (21:25)
[2018-10-17] MEDS ORDERED: LOPRESSOR 5 MG/5 ML INJECTION IV ONE (21:28)
[2018-10-17] MEDS: ZOCOR 20MG PO SCH (22:06)
[2018-10-17] MEDS: Lanoxin 0.125MG TABLET PO SCH (22:06)
[2018-10-17] MEDS: Singulair 10 MG PO SCH (22:06)
[2018-10-18] MEDS: MORPHINE SULFATE 4 MG INJ IV PRN ×3 (00:16→17:10)
[2018-10-18] MEDS: Zosyn 3.375GM/100 Ml D5W 3.375 GM/100 ML IVPB IV SCH ×4 (00:16→17:10)
[2018-10-18] MEDS: Advair Hfa 115/21 Common canister IH SCH ×3 (00:40→19:40)
[2018-10-18] MEDS ORDERED: LOPRESSOR 5 MG/5 ML INJECTION IV PRN ×2 (03:00→06:34)
[2018-10-18 05:46] LABS: BASOPHIL % 0.3 % (0.0-0.4); Basophil (Absolute #) 0.05 (0-0.4); Eosinophil % 0.2 % (0.00-5.0); Eosinophil (Absolute #) 0.03 (0-0.5); Granulocyte Absolute (ANC) 15.29 (1.4-6.9); Granulocytes % 86.8 % (36.0-66.0); Hematocrit 42.7 % (42-50); Hemoglobin 13.5 gm/dl (12.5-18.0); Lymphocyte (Absolute #) 0.66 (1.0-4.6); Lymphocytes % 3.8 % (24.0-44.0); Mean Cell Volume 94.9 fl (78-100); Mean Corpuscular Hgb Concent. 31.6 g/dl (32-36); Mean Platelet Volume 10.7 fl (6-9.5); Monocyte (Absolute #) 1.57 (0.0-1.3); Monocytes % 8.9 % (0.0-12.0); Platelet Count 324 K/mm3 (150-450); Red Cell Distribution Width 14.1 % (11.5-14.0); White Blood Count 17.6 K/mm3 (4.0-10.5)
[2018-10-18 06:05] LABS: ALBUMIN 3.7 g/dL (3.5-5.0); ALKALINE PHOSPHATASE 62 U/L (38-126); BLOOD UREA NITROGEN 9 mg/dL (9-20); CHLORIDE 104 mmol/L (98-107); Calcium 9.2 mg/dL (8.4-10.2); Carbon Dioxide 24 mmol/L (22-30); Creatinine 1 0.77 mg/dL (0.66-1.25); Direct Bilirubin 0.6 mg/dL (0.0-0.4); Glucose 108 mg/dL (74-106); Potassium 4.5 mmol/L (3.5-5.1); SGOT/AST 36 U/L (17-59); SGPT/ALT 22 U/L (0-50); SODIUM 140 mmol/L (137-145); Total Protein 6.6 g/dL (6.3-8.2)
--- NOTE | 2018-10-18 07:39 | OP ---
SURGERY DATE/TIME: 10/17/2018 1535 PREOPERATIVE DIAGNOSIS: Acute exacerbation chronic cholecystitis, symptomatic cholelithiasis. POSTOPERATIVE DIAGNOSIS: Acute on chronic inflammatory reaction. PROCEDURE: Laparoscopic cholecystectomy. SURGEON: Dr. Pete Cunha. RHIA: Juan David Perrin, Hazard[employer] Technician III. ANESTHESIA: General. ESTIMATED BLOOD LOSS: Less than 75 cc. INDICATIONS: As noted above. Risks and benefits explained in detail but not limited to and consent obtained. DESCRIPTION OF PROCEDURE AND FINDINGS: The patient was taken to the OR. General anesthesia was induced. Abdomen prepped and draped in the usual sterile fashion. After official time out and no disagreement with planned procedure, a transverse incision made at the supraumbilical area. Fascia grasped and pulled upward. Veress needle inserted and tested with saline. Pneumoperitoneum accomplished insufflating opening pressure of 0-15. A 5 mm bladeless port and camera inserted without difficulty followed by two - 5 mm right upper quadrant ports and 11 mm epigastric port was later switched to 12 mm port. Gallbladder incased in omentum. Acute exacerbation of extensive chronic inflammation the omentum slowly and carefully taken. In order to allow the gallbladder to be grasped and retracted upwards over the edge of the liver it was necessary to aspirate bile 40 cc or so bile was aspirated allowing the gallbladder to be pulled up. Very extensive inflammatory reaction in the area next to the common duct area. This area was concrete reaction but slowly, gently and carefully dissected posterior, lateral to anterior fashion until infundibulum part of the gallbladder was carefully skeletonized and critical view was obtained. Because of the extensive inflammation next to the common duct it was felt that the gallbladder should be taken right at the infundibular-cystic duct junction site. It was felt the best manner to do so is with EndoGIA stapler fired across this. Staple line intact. There was a little bit of oozing on one edge and additional couple Ligaclips were placed on the edge of the staple line. There were no signs of any obvious bile leakage from this. The gallbladder is slowly and carefully dissected free from its concrete reaction of liver bed which is very severe concrete reaction. The main cystic artery isolated as well as a couple of side branches isolated and clipped x3. Staying directly on the gallbladder wall clipping additional oozing side branches that were pulsatile directly on the gallbladder wall as necessary. This took some time given the extensive almost concrete vascular inflammatory reaction but slowly and carefully dissected free off the anterior edge of the liver. Just prior to releasing from final attachments the cystic duct stump appeared to be secure. No signs of any active bleeding or leakage at this time. Clips noted in place in cystic artery stump. Other than a raw liver bed with some minor ooze. There were no signs of any active bleeding. Copious amount of irrigation irrigating until clear. Gallbladder released from final attachments, placed in Pleatman sac pulled up into the epigastrium which was slightly spread with a clamp pulled free and passed off. Port is replaced. Copious amount of irrigation accomplished lateral to the liver and subhepatic space irrigating until clear. There is no specific vessel to cauterize or clip. Small piece of Surgicel was left in the raw liver bed. Otherwise GISELA drain placed subhepatic space out through lateral port, incision secured with PDS suture and placed to bulb suction. 12 mm fascial defect had been slightly enlarged with the clamp to allow the distended, stone-filled gallbladder and Pleatman sac to be removed. It was closed with figure-of-8 with #1 Vicryl. Pneumoperitoneum decompressed. Wound irrigated out. Copious amount of irrigation irrigated until clear. The pneumoperitoneum had been decompressed. Wound irrigated out. Skin incision closed with 4-0 Vicryl, Steri-Strips and sterile dressing applied. 0.25% Marcaine local had been injected along the skin incision and fascial defect at the beginning procedure. There were no immediate complications. Findings discussed with the family in the waiting area.
[2018-10-18] MEDS: Lanoxin 0.125MG TABLET PO SCH ×2 (08:27→09:05)
[2018-10-18] MEDS: Klor Con 10 MEQ PO SCH ×2 (08:27→21:16)
[2018-10-18] MEDS: Lopressor 50 MG PO SCH ×2 (08:27→21:17)
[2018-10-18] MEDS: THEOPHYLLINE ER 24HR PO SCH (08:28)
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
[2018-10-18 09:27] LABS: Slide Review 1 YES
[2018-10-18] MEDS ORDERED: SUBLIMAZE 250 MCG/5 ML IV ONE (09:49)
[2018-10-18] MEDS ORDERED: BRIDION 200MG/2ML IV ONE (09:49)
[2018-10-18] MEDS ORDERED: Zemuron 100 MG/10 ML IV ONE (09:49)
[2018-10-18] MEDS ORDERED: MORPHINE SULFATE 10 MG/ML IV ONE (09:49)
[2018-10-18] MEDS ORDERED: Amidate 20 MG/10 ML IV ONE (09:49)
[2018-10-18] MEDS ORDERED: BREVIBLOC 100 MG/10 ML IV ONE (09:49)
[2018-10-18] MEDS ORDERED: Versed 2 MG/2 ML Injection IV ONE (09:49)
[2018-10-18] MEDS ORDERED: LOPRESSOR 5 MG/5 ML INJECTION IV ONE (09:49)
[2018-10-18] MEDS: Singulair 10 MG PO SCH (21:17)
[2018-10-18] MEDS: ZOCOR 20MG PO SCH (21:17)
[2018-10-19] MEDS: Zosyn 3.375GM/100 Ml D5W 3.375 GM/100 ML IVPB IV SCH ×2 (00:09→05:26)
[2018-10-19 05:38] LABS: Hematocrit 39.3 % (42-50); Hemoglobin 12.7 gm/dl (12.5-18.0); Mean Cell Volume 93.6 fl (78-100); Mean Corpuscular Hemoglobin 30.2 pg (26-32); Mean Corpuscular Hgb Concent. 32.3 g/dl (32-36); Mean Platelet Volume 10.6 fl (6-9.5); Platelet Count 282 K/mm3 (150-450); Red Cell Distribution Width 14.3 % (11.5-14.0)
[2018-10-19 05:55] LABS: ALBUMIN 2.9 g/dL (3.5-5.0); BILIRUBIN,TOTAL 1.1 mg/dL (0.2-1.3); Direct Bilirubin 0.6 mg/dL (0.0-0.4); Total Protein 5.1 g/dL (6.3-8.2)
[2018-10-19 05:57] LABS: ALBUMIN 3.1 g/dL (3.5-5.0); ALKALINE PHOSPHATASE 51 U/L (38-126); ANION GAP 13.2 MEQ/L (5-15); BLOOD UREA NITROGEN 9 mg/dL (9-20); CHLORIDE 101 mmol/L (98-107); Calcium 8.6 mg/dL (8.4-10.2); Carbon Dioxide 25 mmol/L (22-30); Creatinine 1 0.69 mg/dL (0.66-1.25); Glucose 107 mg/dL (74-106); Potassium 3.3 mmol/L (3.5-5.1); SGOT/AST 34 U/L (17-59); SGPT/ALT 22 U/L (0-50); SODIUM 136 mmol/L (137-145); Total Protein 5.8 g/dL (6.3-8.2)
[2018-10-19 06:12] LABS: White Blood Count 27.7 K/mm3 (4.0-10.5)
[2018-10-19] MEDS ORDERED: PHARMACY DOSING REQUEST MC ONE (07:00)
[2018-10-19] MEDS: Advair Hfa 115/21 Common canister IH SCH ×2 (07:21→20:37)
[2018-10-19 08:05] LABS: BAND 9 % (0.0-2.0); Lymphocytes 3 % (24-44); Monocyte 5 % (0.0-12.0); Neutrophils 83 % (36.-66.); Platelet Estimate NORMAL (NORMAL); Total Cells Counted 100
[2018-10-19 08:06] LABS: Toxic Granulation 1+
--- NOTE | 2018-10-19 08:35 | XRAY ---
Indication: Elevated WBC. Status post cholecystectomy. Comparison: October 15, 2018. Portable chest demonstrates new left base infiltrate/atelectasis and small effusion. Stable right infrahilar infiltrate/atelectasis and tiny effusion. Remaining heart and lungs unremarkable.
--- NOTE | 2018-10-19 08:56 | PCM.NOTE ---
Date and Time: 10/19/18850 Subjective Assessment: Patient denies any abdominal pain, shortness of breath, or dysuria. He reports he has had watery diarrhea since his surgery. - Review of Systems Constitutional: Fever Eyes: No Symptoms Ears, Nose, & Throat: No Symptoms Respiratory: Other (chronic cough) Cardiac: No Symptoms Abdominal/Gastrointestinal: No Symptoms Genitourinary Symptoms: No Symptoms Musculoskeletal: No Symptoms Skin: No Symptoms Objective Exam General Appearance: no apparent distress, alert, other (sitting up in bed reading his newspaper) Neurologic Exam: alert, cooperative, normal mood/affect Skin Exam: normal color, warm, dry, other (bandage around drain with small amount of pus and large amout of serosangenous fluid, other incisions c/d/i) Cardiovascular Exam: other (irregularly irregular), No murmur, No friction rub, No gallop Gastrointestinal/Abdomen Exam: soft, normal bowel sounds, No tenderness, No distention, No mass, No guarding Extremity Exam: normal inspection, other (no c/c/e) OBJECTIVE DATA Vital Signs: Vital Signs - 24 hr Temp Pulse Resp BP Pulse Ox 10/19/18 07:21 98 H 18 94 L 10/19/18 02:00 92 L 10/19/18 00:00 98.9 F 113 H 17 133/78 92 L 10/18/18 20:00 98.8 F 128 H 18 124/70 93 L 10/18/18 19:41 85 L 10/18/18 16:14 101.4 F 64 18 144/88 97 10/18/18 12:00 97.9 F 132 H 22 152/86 94 L Oxygen-Last 24 hours O2 Percentage 3 Liters = 32% Pain Assessment - Last Documented Pain Intensity 3 Pain Scale Used 0-10 Pain Scale,FLACC Intake and Output: Intake & Output 10/17/18 10/18/18 10/19/18 10/20/18 06:59 06:59 06:59 06:59 Intake Total 2964 1893 580 Output Total 900 270 80 Balance 2064 1623 500 Weight 89.7 kg Lab Results: Lab Results-Last 24 Hours 10/18/18 10/19/18 10/19/18 Range/Units 05:20 05:10 05:10 WBC 27.7 H* (4.0-10.5) K/mm3 RBC 4.20 (4.1-5.6) M/mm3 Hgb 12.7 (12.5-18.0) gm/dl Hct 39.3 L (42-50) % MCV 93.6 (78-100) fl MCH 30.2 (26-32) pg MCHC 32.3 (32-36) g/dl RDW 14.3 H (11.5-14.0) % Plt Count 282 (150-450) K/mm3 MPV 10.6 H (6-9.5) fl Segmented Neutrophils 83 H (36.-66.) % Band Neutrophils 9 H (0.0-2.0) % Lymphocytes (Manual) 3 L (24-44) % Monocytes (Manual) 5 (0.0-12.0) % Toxic Granulation 1+ Platelet Estimate NORMAL (NORMAL) RBC Morphology NORMAL Sodium 136 L (137-145) mmol/L Potassium 3.3 L D (3.5-5.1) mmol/L Chloride 101 (98-107) mmol/L Carbon Dioxide 25 (22-30) mmol/L Anion Gap 13.2 (5-15) MEQ/L BUN 9 (9-20) mg/dL Creatinine 0.69 (0.66-1.25) mg/dL Estimated GFR > 60.0 ML/MIN Glucose 107 H (74-106) mg/dL Calcium 8.6 (8.4-10.2) mg/dL Total Bilirubin 1.10 (0.2-1.3) mg/dL Direct Bilirubin (0.0-0.4) mg/dL AST 34 (17-59) U/L ALT 22 (0-50) U/L Alkaline Phosphatase 51 (38-126) U/L Serum Total Protein 5.8 L (6.3-8.2) g/dL Albumin 3.1 L (3.5-5.0) g/dL Slides for Path Review YES 10/19/18 Range/Units 05:10 WBC (4.0-10.5) K/mm3 RBC (4.1-5.6) M/mm3 Hgb (12.5-18.0) gm/dl Hct (42-50) % MCV (78-100) fl MCH (26-32) pg MCHC (32-36) g/dl RDW (11.5-14.0) % Plt Count (150-450) K/mm3 MPV (6-9.5) fl Segmented Neutrophils (36.-66.) % Band Neutrophils (0.0-2.0) % Lymphocytes (Manual) (24-44) % Monocytes (Manual) (0.0-12.0) % Toxic Granulation Platelet Estimate (NORMAL) RBC Morphology Sodium (137-145) mmol/L Potassium (3.5-5.1) mmol/L Chloride (98-107) mmol/L Carbon Dioxide (22-30) mmol/L Anion Gap (5-15) MEQ/L BUN (9-20) mg/dL Creatinine (0.66-1.25) mg/dL Estimated GFR ML/MIN Glucose (74-106) mg/dL Calcium (8.4-10.2) mg/dL Total Bilirubin 1.10 (0.2-1.3) mg/dL Direct Bilirubin 0.6 H (0.0-0.4) mg/dL AST 35 (17-59) U/L ALT 22 (0-50) U/L Alkaline Phosphatase 55 (38-126) U/L Serum Total Protein 5.1 L (6.3-8.2) g/dL Albumin 2.9 L (3.5-5.0) g/dL Slides for Path Review Radiology Exams: Radiology Procedures Category Date Time Status CHEST 1 VIEW (PORTABLE) Routine Exams 10/19/18 07:00 Completed Assessment/Plan (1) Acute gangrenous cholecystitis Current Visit: Yes Status: Acute Assessment & Plan: s/p cholecystectomy. Continue management per surgeon, Dr. Conley. Dr. Conley was notified by nursing of patient's elevated WBC. Code(s): K81.0 - ACUTE CHOLECYSTITIS (2) Atrial fibrillation Current Visit: Yes Status: Acute Assessment & Plan: Plan to restart Eliquis today for anticoagulation. Code(s): I48.91 - UNSPECIFIED ATRIAL FIBRILLATION (3) COPD (chronic obstructive pulmonary disease) Current Visit: Yes Status: Acute Assessment & Plan: Stable on home medications and on room air. (4) Chronic cough Current Visit: Yes Status: Acute Code(s): R05 - COUGH (5) Leukocytosis Current Visit: Yes Status: Acute Assessment & Plan: Zosyn changed to meropenem per general surgeon. Code(s): D72.829 - ELEVATED WHITE BLOOD CELL COUNT, UNSPECIFIED (6) Diarrhea Current Visit: Yes Status: Acute Assessment & Plan: c.diff toxin ordered. Code(s): R19.7 - DIARRHEA, UNSPECIFIED
[2018-10-19] MEDS: Lanoxin 0.125MG TABLET PO SCH (09:42)
[2018-10-19] MEDS: Klor Con 10 MEQ PO SCH ×2 (09:42→21:40)
[2018-10-19] MEDS: Lopressor 50 MG PO SCH ×2 (09:42→21:41)
[2018-10-19] MEDS: Merrem 1 GM 1 G in Sodium Chloride 100ML MINI-BAG PLUS 100 ML IV SCH ×2 (09:43→18:32)
[2018-10-19] MEDS: THEOPHYLLINE ER 24HR PO SCH (09:51)
[2018-10-19 12:54] LABS: TOXIGENIC C. DIFF ORG POSITIVE (NEGATIVE)
[2018-10-19 12:55] LABS: 027 TOX PROD PRESUMPTIVE NEGATIVE (NEGATIVE)
[2018-10-19 15:27] LABS: Campylobacter NEGATIVE (NEGATIVE); Enteroaggregative E.coli NEGATIVE (NEGATIVE); Salmonella NEGATIVE (NEGATIVE); Vibrio NEGATIVE (NEGATIVE)
[2018-10-19 15:28] LABS: Adenovirus F 40/41 NEGATIVE (NEGATIVE); Astrovirus NEGATIVE (NEGATIVE); Cyclospora cayentanensis NEGATIVE (NEGATIVE); Entamoeaba histolytica NEGATIVE (NEGATIVE); Giardia lamblia NEGATIVE (NEGATIVE); Rotavirus A NEGATIVE (NEGATIVE); Sapovirus NEGATIVE (NEGATIVE); Shiga-like toxin prod.E.coli NEGATIVE (NEGATIVE)
[2018-10-19 15:29] LABS: C. Difficile Organism POSITIVE (NEGATIVE)
[2018-10-19] MEDS: ELIQUIS 2.5 MG TABLET PO SCH (21:40)
[2018-10-19] MEDS: ZOCOR 20MG PO SCH (21:41)
[2018-10-19] MEDS: Singulair 10 MG PO SCH (21:41)
[2018-10-20] MEDS: Merrem 1 GM 1 G in Sodium Chloride 100ML MINI-BAG PLUS 100 ML IV SCH (01:39)
[2018-10-20 05:58] LABS: Hematocrit 40.2 % (42-50); Hemoglobin 12.9 gm/dl (12.5-18.0); Mean Cell Volume 93.3 fl (78-100); Mean Corpuscular Hemoglobin 29.9 pg (26-32); Mean Corpuscular Hgb Concent. 32.1 g/dl (32-36); Mean Platelet Volume 10.7 fl (6-9.5); Platelet Count 294 K/mm3 (150-450); Red Blood Count 4.31 M/mm3 (4.1-5.6); Red Cell Distribution Width 14.3 % (11.5-14.0); White Blood Count 24.4 K/mm3 (4.0-10.5)
[2018-10-20 06:23] LABS: ALKALINE PHOSPHATASE 56 U/L (38-126); ANION GAP 13.4 MEQ/L (5-15); BLOOD UREA NITROGEN 12 mg/dL (9-20); CHLORIDE 101 mmol/L (98-107); Calcium 8.9 mg/dL (8.4-10.2); Carbon Dioxide 26 mmol/L (22-30); Creatinine 1 0.63 mg/dL (0.66-1.25); Glucose 88 mg/dL (74-106); Potassium 3.2 mmol/L (3.5-5.1); SGOT/AST 27 U/L (17-59); SGPT/ALT 25 U/L (0-50); SODIUM 138 mmol/L (137-145); Total Protein 5.7 g/dL (6.3-8.2)
[2018-10-20] MEDS: Advair Hfa 115/21 Common canister IH SCH (06:32)
[2018-10-20 07:09] VITALS: BP 108/63
[2018-10-20] MEDS ORDERED: Klor Con 10 MEQ PO ONE (08:14)
[2018-10-20 08:26] LABS: BAND 16 % (0.0-2.0); Eosinophil 1 % (0.00-3.0); Lymphocytes 4 % (24-44); Monocyte 3 % (0.0-12.0); Neutrophils 76 % (36.-66.); Platelet Estimate NORMAL (NORMAL); Total Cells Counted 100
[2018-10-20] MEDS: Lanoxin 0.125MG TABLET PO SCH (08:27)
[2018-10-20] MEDS: Klor Con 10 MEQ PO SCH (08:27)
[2018-10-20] MEDS: ELIQUIS 2.5 MG TABLET PO SCH (08:27)
[2018-10-20] MEDS: THEOPHYLLINE ER 24HR PO SCH (08:28)
[2018-10-20] MEDS: Lopressor 50 MG PO SCH (08:33)
[2018-10-20 08:57] VITALS: PULSE 100; O2SAT 96
--- NOTE | 2018-10-20 09:10 | PCM.DCORD ---
- Discharge Discharge Date: 10/20/18 Disposition: Home, Self-Care Condition: Good Prescriptions: New Ciprofloxacin [Cipro 500 MG] 500 mg PO BID #14 tablet Metronidazole 500 mg [Flagyl 500 MG] 500 mg PO QID #28 tablet Digoxin 0.125 mg Tablet [Lanoxin 0.125MG TABLET] 0.125 mg PO QAM tablet Hydrocodone/APAP 5-325 Tab^^^ [[place] 5-325 Tablet^^^] 1 each PO Q4H PRN #27 tablet MDD 6 PRN Reason: Pain Acetaminophen 325 mg [Tylenol 325 mg] 650 mg PO Q4H PRN PRN tablet PRN Reason: Pain And/Or Fever Continue Fluticasone/Salmeterol [Advair 250-50 Diskus] 2 each IH BID Montelukast Sodium 10 mg [Singulair 10 MG] 10 mg PO HS Pravastatin Sodium 40 mg PO HS Potassium Chloride 10 Meq Tab* [Klor Con 10 MEQ] 20 meq PO BID Albuterol Sulfate [Proair Hfa] 8.5 gm IH Q4-6HPRN PRN PRN Reason: Shortness Of Breath/Wheezing Metoprolol Tartrate [Lopressor] 50 mg PO BID Benzonatate [Tessalon Perle] 100 mg PO TIDPRN PRN PRN Reason: Cough Apixaban [Eliquis] 5 mg PO BID #0 Discontinued Theophylline Anhydrous 300 mg* [Theodur 300MG] 300 mg PO BID Digoxin 0.125 mg Tablet [Lanoxin 0.125MG TABLET] 0.125 mg PO HS Additional Instructions: Do not take your theophylline until you have finished the ciprofloxacin. Go to the ER if you have fever, nausea, vomiting, abdominal pain or any other concerns. Hold your blood thinner starting 10/21/[address] Conley's instruction. Do not drink alcohol while taking metronidazole. We have changed the time you take your digoxin to the morning. You are to still take digoxin. Follow up with: DULCE MENDOZA [COURTESY STAFF] - 10/26/18 11:20 am (at t.h. office) COURTNEY JOHNSON [Primary Care Provider] - 10/28/18 2:00 pm
--- NOTE | 2018-10-20 10:34 | DS ---
DISCHARGE DIAGNOSES: 1) ACUTE CHOLECYSTITIS WITH HISTORY OF CHRONIC CHOLECYSTITIS WITH SYMPTOMATIC CHOLELITHIASIS. 2) ATRIAL FIBRILLATION. 3) CHRONIC OBSTRUCTIVE PULMONARY DISEASE. 4) CHRONIC COUGH. 5) LEUKOCYTOSIS. 6) DIARRHEA. DISCHARGE PHYSICAL EXAMINATION: VITALS: Temperature current 97.9F, temperature max 98.4F, heart rate 84 to 100, respiratory rate 16 to 18, blood pressure 108 to 121 over 63 to 83, weight 89.7 kg. Oxygen saturation 93 to 97% on room air. GENERAL: The patient is a pleasant talkative man sitting up in bed in no acute distress. He has also been ambulating in his room without any difficulty. CVS: He has an irregularly irregular rhythm. No murmurs, gallops or rubs are appreciated. CHEST: Clear to auscultation bilaterally with fine crackles in the bases. No tachypnea. No retractions. No wheezing. No dyspnea. ABDOMEN: Surgical bandages in place. Good bowel sounds, soft, nontender, nondistended. EXTREMITIES: No clubbing, cyanosis or edema. SKIN: Warm, dry and intact. HOSPITAL COURSE: 1) ACUTE CHOLECYSTITIS WITH HISTORY OF CHRONIC CHOLECYSTITIS WITH SYMPTOMATIC CHOLELITHIASIS: The patient had a laparoscopic cholecystectomy done by Dr. Cunha on 10/17/2018. Before surgery his white blood cell count had been normal, the day after surgery was 17,600 that was 10/18/2018 and 10/19/2018 was 27,000 and on the date of discharge 24,000 with a left shift. He was having clear serosanguineous drainage from his GISELA drain. No signs of any other infection. I called Dr. Cunha and discussed with him personally and he was comfortable with sending the patient home on oral antibiotics. The patient is eager to go home. He is not having any pain or fever. No altered mental status. No hypotension. The patient was initially on Zosyn before his surgery and after surgery this was changed to meropenem on 10/19/2018. I am planning to discharge him on metronidazole 500 mg every six hours for seven days and ciprofloxacin 500 mg b.i.d. for seven days. He has been instructed not to drink alcohol. I am having him hold his theophylline while he is taking the ciprofloxacin as there is an interaction between these two medications. I have instructed the patient carefully that if he has any fever, abdominal pain, vomiting or any other concerns to come back to the emergency room for urgent evaluation. The patient has follow up scheduled with Dr. Cunha and myself next week. The patient is on anticoagulation but has been told to not take this starting tomorrow in preparation for having the GISELA drain pulled when he sees Dr. Cunha on follow up appointment this is per Dr. Cunha's request. 2) ATRIAL FIBRILLATION: He has been continued on digoxin. His level was checked and it was slightly low but he was continued on his current dose. He has been continued on metoprolol. Right after surgery he was confused and unable to take oral medication so he did get a dose of IV metoprolol at that time. Once he was able to take oral medications again these were resumed. Heart rate was high after surgery due to him missing his regular digoxin dose as well as metoprolol dose. At the time of discharge his rate is controlled. He is currently on Eliquis but that is to be held again starting tomorrow per the surgeon. 3) CHRONIC OBSTRUCTIVE PULMONARY DISEASEL: This was stable during hospitalization. He was on and off a couple liters of oxygen but he has been in no distress. No respiratory difficulties whatsoever. He was continued on his home medications. 4) CHRONIC COUGH: I have already referred him as an outpatient to see an ENT for further evaluation of this with changing his blood pressure medicine which included stopping the HAILY, ARB have not changed the cough. 5) LEUKOCYTOSIS: The patient's white blood cell count is high perhaps this is an inflammatory reaction from the cholecystectomy as this was when his blood counts rodrick. He has no signs of a bladder infection, sepsis or pneumonia. When I looked at his dressing yesterday he had a small amount of pus on the dressing but the drainage from the GISELA drain has been clear. I did discuss with Dr. Cunha that there was a small amount of pus on the dressing itself when I saw it yesterday. It was changed because the whole dressing was soaked through with mostly the serosanguinous fluid. 6) DIARRHEA: He developed some liquidy stools. Clostridium difficile toxin was negative. GI panel was negative. 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 DISCHARGE MEDICATIONS: Please see the discharge order. FOLLOW UP: He has follow up scheduled with Dr. Cunha and myself. DISPOSITION: The patient is being discharged to home in fair condition.
== END 2018-10-20 09:50 | disposition home or self-care (01) | DRG 418 ==
LOC: ED 23:51 → MED SURG 10-15 02:32
PROVIDERS: ADMIT Internal Medicine; ATTEND Internal Medicine
PROC: 0FT44ZZ Resection of Gallbladder, Percutaneous Endoscopic Approach (ICD-10-PCS; principal; 2018-10-17)
DX: K80.12 Calculus of gallbladder with acute and chronic cholecystitis without obstruction (principal); I42.9 Cardiomyopathy, unspecified; K81.0 Acute cholecystitis; I48.91 Unspecified atrial fibrillation; R05 Cough; D72.829 Elevated white blood cell count, unspecified; R19.7 Diarrhea, unspecified; I10 Essential (primary) hypertension; J44.9 Chronic obstructive pulmonary disease, unspecified; Z79.01 Long term (current) use of anticoagulants; I35.0 Nonrheumatic aortic (valve) stenosis; E78.5 Hyperlipidemia, unspecified; Z79.899 Other long term (current) drug therapy
CPT/HCPCS: 36000; 36415; 71045; 74176; 76705; 80053; 80076; 80162; 81001; 82150; 82248; 83605; 83690; 83735; 84484; 85025; 85610; 87493; 87507; 88304; 93005; 94150; 94640; 94760; 94762; 96360; 96365; 96374; 96375; 99100; 99285; J0295; J1630; J1650; J2250; J2270; J2405; J2543; J3010; A9270-GY

== ENCOUNTER 2020-04-30 05:59 | Day surgery (SDC) | payer MEDICARE ==
[2020-04-30] MEDS ORDERED: Lactated Ringers 1,000 ML IV SCH (06:30)
[2020-04-30] MEDS ORDERED: SODIUM CHLORIDE 0.9% IV SCH (08:00)
[2020-04-30] MEDS ORDERED: PHENYLEPHRINE HCL IV SCH (08:00)
[2020-04-30 10:39] VITALS: PULSE 55; O2SAT 97
== END 2020-04-30 08:20 | disposition home or self-care (01) ==
LOC: SDC 05:59
PROVIDERS: ATTEND Family Medicine
DX: Z53.09 Procedure and treatment not carried out because of other contraindication (principal)

== ENCOUNTER 2020-11-08 09:17 | Emergency (ER) | payer MEDICARE ==
[2020-11-08] MEDS ORDERED: XYLOCAINE 1% HCL 20 ML MDV IJ ONE (09:18)
[2020-11-08 09:32] VITALS: BP 109/65; PULSE 67; O2SAT 98
[2020-11-08] MEDS ORDERED: Rocephin 500 MG INJ IM ONE (09:42)
[2020-11-08] MEDS ORDERED: Rocephin 1000 MG INJ ONE (09:46)
[2020-11-08] MEDS ORDERED: PYRIDIUM 200 MG ONE (09:46)
[2020-11-08 09:47] LABS: Appearance CLOUDY (CLEAR); Bacteria MANY /HPF (NEGATIVE); Bilirubin NEGATIVE (NEGATIVE); Blood LARGE Ery/ul (0-5); Glucose 50 mg/dL (NEGATIVE); Ketones NEGATIVE (NEGATIVE); Leukocyte Esterase SMALL (NEGATIVE); Nitrite NEGATIVE (NEGATIVE); Protein,Urine Dip 100 (Negative); Specific Gravity 1.024 (1.005-1.025); Urobilinogen NEGATIVE mg/dL (0-1); WBC >100 /HPF (0-5)
[2020-11-08 09:48] LABS: RBC >101 /HPF (0-2)
[2020-11-08 09:50] LABS: Absolute Neutrophil Ct (ANC) 10.59 (1.4-6.9); BASOPHIL % 0.2 % (0.0-0.4); Basophil (Absolute #) 0.03 (0-0.4); Eosinophil % 0.2 % (0.00-5.0); Eosinophil (Absolute #) 0.03 (0-0.5); Hemoglobin 15.3 gm/dl (12.5-18.0); Lymphocyte (Absolute #) 0.69 (1.0-4.6); Lymphocytes % 5.6 % (24.0-44.0); Mean Cell Volume 100.4 fl (78-100); Mean Corpuscular Hgb Concent. 31.9 g/dl (32-36); Mean Platelet Volume 10.2 fl (7.5-11.0); Monocyte (Absolute #) 1.04 (0.0-1.3); Monocytes % 8.4 % (0.0-12.0); Neutrophil % 85.6 % (36.0-66.0); Platelet Count 220 K/mm3 (150-450); Red Blood Count 4.78 M/mm3 (4.1-5.6); Red Cell Distribution Width 13.1 % (11.5-14.0); White Blood Count 12.4 K/mm3 (4.0-10.5)
[2020-11-08 09:58] LABS: ALBUMIN 4.2 g/dL (3.5-5.0); ALKALINE PHOSPHATASE 43 U/L (38-126); ANION GAP 9.5 MEQ/L (5-15); BLOOD UREA NITROGEN 10 mg/dL (9-20); CHLORIDE 98 mmol/L (98-107); Calcium 9.6 mg/dL (8.4-10.2); Carbon Dioxide 31 mmol/L (22-30); Creatinine 1 0.69 mg/dL (0.66-1.25); EST GLOMERULAR FILTRATION RATE > 60.0 ML/MIN; Glucose 121 mg/dL (74-106); Potassium 4.1 mmol/L (3.5-5.1); SGOT/AST 18 U/L (17-59); SGPT/ALT 19 U/L (0-50); SODIUM 135 mmol/L (137-145); Total Protein 6.9 g/dL (6.3-8.2)
[2020-11-08] MEDS ORDERED: PYRIDIUM 200 MG PO SCH (10:00)
--- NOTE | 2020-11-08 10:06 | XRAY ---
Indication: Dysuria. Hematuria. Multiple contiguous axial images obtained through the abdomen and pelvis without contrast using renal stone protocol. Comparison: October 15, 2018. Lung bases demonstrates mild subsegmental atelectasis/scarring. No infiltrate or effusion. Heart is now borderline enlarged. No renal calculus or evidence for obstructive uropathy in either system. Urinary bladder minimally distended with new wall thickening/stranding possibly cystitis. Stable enlarged prostate gland impressing on the base of the bladder. Noncontrasted stomach and bowel loops appear nonobstructed. Again scattered colonic diverticulosis without diverticulitis. Interval cholecystectomy. No free fluid/air. Remaining liver, pancreas, spleen, adrenal glands, kidneys, ureters, and bladder are unremarkable for noncontrast exam. Stable moderate aortoiliac calcifications without AAA. Osseous structures intact again with moderate degenerative changes throughout the thoracolumbar spine. Incidental vasectomy clips not previously imaged. Impression: 1. Negative renal calculus or evidence for obstructive uropathy. 2. New urinary bladder wall thickening/stranding. Rule out cystitis. 3. Incidental borderline cardiomegaly, colonic diverticulosis, enlarged prostate gland, and chronic bony findings.
--- NOTE | 2020-11-08 10:30 | ERPHSYRPT ---
- History of Present Illness Time Seen by Provider: 11/08/20 09:30 Source: patient Exam Limitations: no limitations Patient Subjective Stated Complaint: Hematuria Triage Nursing Assessment: Patient ambulated back to ED and transferred self to bed. Patient A+O X3. Patient's skin pink, warm and dry. Patient complains of hematuria that started this am. Patient states he is having some dysuria, frequency and urgency when voiding the past few days. Patient currently denies pain or discomfort. Urine noted to be dark red. Physician History: Patient is a 79-year-old male who presents with the onset of dysuria and burning with urination yesterday this morning awoke to find his blood his urine to be very bloody. He denies any acute fever chills sweats or any real pain except for pain in the penis when he urinates. He does have a slight degree of hypospadias and has since of course. He does not recall ever having a urinary tract infection in the past. Timing/Duration: hour(s) (24), worse Activites at Onset: none Quality: burning, sharpness Onset Location: urethral Pain Radiation: none Severity of Pain-Max: moderate Severity of Pain-Current: moderate Modifying Factors: Improves With: nothing Associated Symptoms: dysuria, nocturia, polyuria, urinary frequency, loss of bladder control Prior abdominal problems: none Allergies/Adverse Reactions: morphine Adverse Reaction (Severe, Verified 11/08/20 09:23) severe hallucinations/violent activity Home Medications: Albuterol Sulfate [Proair Hfa] 2 inh PO QID PRN 09/16/18 [History] Fluticasone/Salmeterol [Advair 250-50 Diskus] 2 each IH DAILY 09/16/18 [History] Montelukast Sodium 10 mg [Singulair 10 MG] 10 mg PO HS 09/16/18 [History] Potassium Chloride 10 Meq Tab* [Klor Con 10 MEQ] 20 meq PO BID 09/16/18 [History] Pravastatin Sodium 40 mg PO HS 09/16/18 [History] Metoprolol Tartrate [Lopressor] 25 mg PO BID 09/19/18 [History] Furosemide [Lasix] 20 mg PO UD 04/24/20 [History] Omeprazole 20 mg PO BID 04/24/20 [History] Sacubitril/Valsartan [Entresto 24 mg-26 mg Tablet] 1 tab PO BID 04/24/20 [History] Trazodone HCl 50 mg [Desyrel 50 mg] 50 mg PO HS 04/24/20 [History] Fluticasone Propionate [Flonase NASAL] 2 sprays NS DAILY 11/08/20 [History] Hx Tetanus, Diphtheria Vaccination/Date Given: Yes Hx Influenza Vaccination/Date Given: Yes Hx Pneumococcal Vaccination/Date Given: Yes Immunizations Up to Date: Yes Travel Risk - International Travel Have you traveled outside of the country in past 3 weeks: No - Coronavirus Screening Are you exhibiting any of the following symptoms?: No Close contact with a COVID-19 positive Pt in past 14-21 Days: No - Past Medical History Pertinent Past Medical History: Yes Neurological History: No Pertinent History ENT History: No Pertinent History Cardiac History: Arrhythmia, Hypertension, Other Respiratory History: COPD Endocrine Medical History: No Pertinent History Musculoskeletal History: Arthritis GI Medical History: GERD History: No Pertinent History Psycho-Social History: No Pertinent History Male Reproductive Disorders: No Pertinent History Other Medical History: heart cath 2012 - Past Surgical History Past Surgical History: Yes Neuro Surgical History: No Pertinent History Cardiac: Cardiac Catheterization Respiratory: No Pertinent History Gastrointestinal: Appendectomy Genitourinary: No Pertinent History Musculoskeletal: Joint Replacement, Other Male Surgical History: No Pertinent History Other Surgical History: bilat knees replacement, L wrist ganglion cyst, lesion to left thigh. - Social History Smoking Status: Former smoker Exposure to second hand smoke: No Drug Use: none Patient Lives Alone: Yes - Review of Systems Constitutional: No Fever, No Chills Eyes: No Symptoms Ears, Nose, & Throat: No Symptoms Respiratory: No Cough, No Dyspnea Cardiac: No Chest Pain, No Edema, No Syncope Abdominal/Gastrointestinal: No Abdominal Pain, No Nausea, No Vomiting, No Diarrhea Genitourinary Symptoms: Dysuria, Frequency, Hematuria, Incontinence, Urgency Musculoskeletal: No Back Pain, No Neck Pain Skin: No Rash Neurological: No Dizziness, No Focal Weakness, No Sensory Changes Psychological: No Symptoms Endocrine: No Symptoms All Other Systems: Reviewed and Negative - Nursing Vital Signs Nursing Vital Signs: Initial Vital Signs Temperature 98.3 F 11/08/20 09:23 Pulse Rate 67 11/08/20 09:23 Respiratory Rate 18 11/08/20 09:23 Blood Pressure 109/65 11/08/20 09:23 O2 Sat by Pulse Oximetry 98 11/08/20 09:23 Pain Scale Pain Intensity 0 - Physical Exam General Appearance: mild distress, alert Eye Exam: PERRL/EOMI Ears, Nose, Throat Exam: pharynx normal, moist mucous membranes Neck Exam: normal inspection, supple Respiratory Exam: normal breath sounds, lungs clear Cardiovascular Exam: regular rate/rhythm, No edema Gastrointestinal/Abdomen Exam: soft, No tenderness Male Genital Exam: No normal genitalia (Patient has obvious hypospadias) Back Exam: normal inspection, No CVA tenderness Extremity Exam: normal inspection, normal range of motion, No pedal edema Neurologic Exam: alert, oriented x 3, cooperative, sensation nml, No motor deficits Skin Exam: normal color, warm, dry, No rash SpO2: 98 - Course Nursing assessment & vital signs reviewed: Yes - CT Exams Abdomen/Pelvis CT Interpretation: Other (Getting of the bladder wall consistent with inflammation or infection) Ordered Tests: Active Orders 24 hr Category Date Time Status ABDOMEN AND PELVIS W/0 CONTRAS [CT] Stat Exams 11/08/20 09:30 Completed CBC W DIFF Stat Lab 11/08/20 09:40 Received CMP Stat Lab 11/08/20 09:40 Completed CULTURE,URINE Stat Lab 11/08/20 09:30 Ordered UA W/RFX UR CULTURE Stat Lab 11/08/20 09:34 Completed Medication Summary Generic Name Dose Route Start Last Admin Trade Name Freq PRN Reason Stop Dose Admin Phenazopyridine HCl 200 mg 11/08/20 10:00 11/08/20 09:55 Pyridium 200 Mg PO 12/08/20 09:59 200 mg TID LALITO Administration Discontinued Medications Generic Name Dose Route Start Last Admin Trade Name Freq PRN Reason Stop Dose Admin Ceftriaxone Sodium 1,000 mg 11/08/20 09:42 11/08/20 09:55 Rocephin 500 Mg Inj IM 11/08/20 09:43 1,000 mg STAT ONE Administration Ceftriaxone Sodium Confirm 11/08/20 09:46 Rocephin 1000 Mg Inj Administered 11/08/20 09:47 Dose 1,000 mg .ROUTE .STCombineNet-MED ONE Lab/Rad Data: Laboratory Result Diagrams 11/08/20 09:40 Laboratory Results 11/08/20 11/08/20 Range/Units 09:40 09:34 Sodium 135 L (137-145) mmol/L Potassium 4.1 (3.5-5.1) mmol/L Chloride 98 (98-107) mmol/L Carbon Dioxide 31 H (22-30) mmol/L Anion Gap 9.5 (5-15) MEQ/L BUN 10 (9-20) mg/dL Creatinine 0.69 (0.66-1.25) mg/dL Estimated GFR > 60.0 ML/MIN Glucose 121 H (74-106) mg/dL Calcium 9.6 (8.4-10.2) mg/dL Total Bilirubin 1.10 (0.2-1.3) mg/dL AST 18 (17-59) U/L ALT 19 (0-50) U/L Alkaline Phosphatase 43 (38-126) U/L Serum Total Protein 6.9 (6.3-8.2) g/dL Albumin 4.2 (3.5-5.0) g/dL Urine Color RED (YELLOW) Urine Appearance CLOUDY (CLEAR) Urine pH 6.0 (5-6) Ur Specific Sage 1.024 (1.005-1.025) Urine Protein 100 (Negative) Urine Ketones NEGATIVE (NEGATIVE) Urine Blood LARGE (0-5) Keegan/ul Urine Nitrite NEGATIVE (NEGATIVE) Urine Bilirubin NEGATIVE (NEGATIVE) Urine Urobilinogen NEGATIVE (0-1) mg/dL Ur Leukocyte Esterase SMALL (NEGATIVE) Urine WBC (Auto) >100 (0-5) /HPF Urine RBC (Auto) >101 (0-2) /HPF U Epithel Cells (Auto) NONE (FEW) /HPF Urine Bacteria (Auto) MANY (NEGATIVE) /HPF Urine Culture Reflexed ORDERED SEPARATELY (NO) Urine Glucose 50 (NEGATIVE) mg/dL - Progress Progress: unchanged - Departure Departure Disposition: Home Clinical Impression: Hemorrhagic cystitis Condition: Stable Critical Care Time: No Referrals: DANE STAPLES [Primary Care Provider] - Instructions: Blood in the Urine (Hematuria) in Adults Prescriptions: Cephalexin Mh 500 mg [Keflex 500 mg] 500 mg PO TID #21 capsule Phenazopyridine HCl 200 mg [Pyridium 200 mg] 200 mg PO TID #6 tablet
== END 2020-11-08 10:37 | disposition home or self-care (01) ==
LOC: ED 09:17
DX: R31.9 Hematuria, unspecified (principal); N30.91 Cystitis, unspecified with hematuria; R30.0 Dysuria; R35.0 Frequency of micturition; I10 Essential (primary) hypertension; Z79.899 Other long term (current) drug therapy
CPT/HCPCS: 36415; 74176; 80053; 81001; 85025; 87086; 96372; 99284; J0696; A9270-GY

== ENCOUNTER 2021-06-24 05:37 | Day surgery (SDC) | payer MEDICARE ==
[2021-06-24] MEDS ORDERED: Lactated Ringers 1,000 ML IV SCH (06:30)
[2021-06-24] MEDS ORDERED: ROBINUL ONE (07:32)
[2021-06-24] MEDS ORDERED: DIPRIVAN 200 MG/20 ML IV ONE (07:32)
[2021-06-24 08:35] VITALS: O2SAT 97
[2021-06-24 08:40] VITALS: BP 111/61; PULSE 37
--- NOTE | 2021-06-24 09:03 | OP ---
SURGERY DATE/TIME: 06/24/2021 2330 PREOPERATIVE DIAGNOSIS: Screening exam. POSTOPERATIVE DIAGNOSIS: Normal colon. PROCEDURE: Colonoscopy. SURGEON: Dr. Martinez. ANESTHESIA: MAC. Medications given by anesthesia department. HISTORY: The patient is a 80-year-old white male patient presenting now for screening colonoscopy. It has been many years since his previous exam. He could not tell me exactly how long it had been. The patient was felt the need to have endoscopic evaluation for screening purposes. The patient was appraised of the risks of the procedure including the risk of perforation, phlebitis, untoward reaction to medication, bleeding and missed lesions. The patient verbalized his understanding and desired to have the procedure performed. DESCRIPTION OF PROCEDURE: The patient was given the medications by the anesthesia department. He had continuous pulse oximetry, ECG monitoring, intermittent blood pressure monitoring and tidal CO2 monitoring during the examination. He was placed in the left lateral decubitus position. A digital rectal examination was performed and revealed normal anal sphincter tone, no masses and normal prostate. The flexible Olympus pediatric colonoscope was used to intubate the rectum. A view of the colon was developed sequentially to the cecum. Upon insertion and withdrawal, including a retroflex view in the rectum, no mucosal lesions were encountered. The scope was removed from the patient who tolerated the procedure well and was sent back to OP recovery in good condition. The prep was noted to be good. The prep was noted to be fair with fairly large amounts of liquid stool suctioned periodically throughout the colon to complete the examination.
== END 2021-06-24 08:50 | disposition home or self-care (01) ==
LOC: SDC 05:37
PROVIDERS: ATTEND Family Medicine
DX: Z12.11 Encounter for screening for malignant neoplasm of colon (principal); Z79.899 Other long term (current) drug therapy; I10 Essential (primary) hypertension; E78.5 Hyperlipidemia, unspecified
CPT/HCPCS: 36415; 80162; 93005; G0121; 99100; J2704

== ENCOUNTER 2022-12-27 10:24 | Emergency (ER) | payer MEDICARE ==
--- NOTE | 2022-12-27 11:10 | ERPHSYRPT ---
- History of Present Illness Time Seen by Provider: 12/27/22 10:45 Source: patient Exam Limitations: no limitations Patient Subjective Stated Complaint: Patient c/o blood in his urine that he noted just started this am. Patient denies back pain, abdominal pain, flank pain. Patient does state his has a little burning with urination. Triage Nursing Assessment: Patient ambulated back to ER without difficulties. He is alert and oriented. No SOB. Skin tone normal. MAYES WNL. Physician History: Patient here with blood in his urine. This is a new finding. No pain. Patient states this is never happened before. He has been eating and drinking normally. No cough cold congestion. No fever no chills. No systemic signs of illness, sepsis, other deep space infection. Patient states he had 1 episode of very bloody urine this morning. Painless. No known history of prostate problems, kidney problems, previous kidney stones. Allergies/Adverse Reactions: morphine Adverse Reaction (Severe, Verified 12/27/22 10:28) severe hallucinations/violent activity bees Allergy (Severe, Uncoded 12/27/22 10:28) Home Medications: Fluticasone/Salmeterol [Advair 250-50 Diskus] 2 each IH DAILY 09/16/18 [History] Montelukast Sodium 10 mg [Singulair 10 MG] 10 mg PO HS 09/16/18 [History] Potassium Chloride Tab* [Klor Con] 20 meq PO BID 09/16/18 [History] Pravastatin Sodium 40 mg PO HS 09/16/18 [History] Metoprolol Tartrate [Lopressor] 25 mg PO BID 09/19/18 [History] Furosemide [Lasix] 20 mg PO UD 04/24/20 [History] Omeprazole 20 mg PO QHS 04/24/20 [History] Sacubitril/Valsartan [Entresto 24 mg-26 mg Tablet] 1 tab PO BID 04/24/20 [History] Trazodone HCl 50 mg [Desyrel 50 mg] 50 mg PO HS 04/24/20 [History] Fluticasone Propionate [Flonase NASAL] 2 sprays NS DAILY 11/08/20 [History] Ascorbic Acid [Vitamin C] 1,000 mg PO DAILY 06/12/21 [History] Digoxin 0.125 mg Tablet [Lanoxin 0.125MG TABLET] 1 tab PO DAILY 12/27/22 [History] Hx Tetanus, Diphtheria Vaccination/Date Given: Yes Hx Influenza Vaccination/Date Given: Yes Hx Pneumococcal Vaccination/Date Given: Yes Immunizations Up to Date: Yes Travel Risk - International Travel Have you traveled outside of the country in past 3 weeks: No - Coronavirus Screening Are you exhibiting any of the following symptoms?: No Close contact with a COVID-19 positive Pt in past 14-21 Days: No - Vaccine Status Have you recieved a Covid-19 vaccination: Yes 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 - Review of Systems Constitutional: No Fever, No Chills Eyes: No Symptoms Ears, Nose, & Throat: No Symptoms Respiratory: No Cough, No Dyspnea Cardiac: No Chest Pain, No Edema, No Syncope Abdominal/Gastrointestinal: No Abdominal Pain, No Nausea, No Vomiting, No Leidy rrhea Genitourinary Symptoms: Hematuria, No Dysuria Musculoskeletal: No Back Pain, No Neck Pain Skin: No Rash Neurological: No Dizziness, No Focal Weakness, No Sensory Changes Psychological: No Symptoms Endocrine: No Symptoms All Other Systems: Reviewed and Negative - Past Medical History Pertinent Past Medical History: Yes Neurological History: No Pertinent History ENT History: No Pertinent History Cardiac History: Arrhythmia, High Cholesterol, Hypertension, Other Respiratory History: Asthma, COPD Endocrine Medical History: No Pertinent History Musculoskeletal History: Arthritis GI Medical History: GERD, Gallbladder Disease History: No Pertinent History Psycho-Social History: No Pertinent History Male Reproductive Disorders: No Pertinent History Other Medical History: A-fib, Insomnia, Allergies - Past Surgical History Past Surgical History: Yes Neuro Surgical History: No Pertinent History Cardiac: Cardiac Catheterization Respiratory: No Pertinent History Gastrointestinal: Appendectomy, Cholecystectomy Genitourinary: No Pertinent History Musculoskeletal: Joint Replacement, Other Male Surgical History: No Pertinent History Other Surgical History: bilat knees replacement, L wrist ganglion cyst, lesion to left thigh. - Social History Smoking Status: Former smoker Exposure to second hand smoke: No Drug Use: none Patient Lives Alone: No - Nursing Vital Signs Nursing Vital Signs: Initial Vital Signs Temperature 97.7 F 12/27/22 10:24 Pulse Rate 53 L 12/27/22 10:24 Respiratory Rate 18 12/27/22 10:24 Blood Pressure 124/80 12/27/22 10:24 O2 Sat by Pulse Oximetry 100 12/27/22 10:24 Pain Scale Pain Intensity 0 - Physical Exam General Appearance: no apparent distress, alert Eye Exam: PERRL/EOMI, eyes nml inspection Ears, Nose, Throat Exam: normal ENT inspection, TMs normal, pharynx normal, moist mucous membranes Neck Exam: normal inspection, non-tender, supple, full range of motion Respiratory Exam: normal breath sounds, lungs clear, No respiratory distress Cardiovascular Exam: regular rate/rhythm, normal heart sounds, normal peripheral pulses Gastrointestinal/Abdomen Exam: soft, normal bowel sounds, No tenderness, No mass Back Exam: normal inspection, normal range of motion, No CVA tenderness, No vertebral tenderness Extremity Exam: normal inspection, normal range of motion, pelvis stable Neurologic Exam: alert, oriented x 3, cooperative, normal mood/affect, nml cerebellar function, nml station & gait, sensation nml, No motor deficits Skin Exam: normal color, warm, dry, No rash Lymphatic Exam: No adenopathy SpO2: 100 Ordered Tests: Active Orders 24 hr Category Date Time Status IV Insertion STAT Care 12/27/22 10:43 Active ABDOMEN AND PELVIS W/0 CONTRAS [CT] Stat Exams 12/27/22 10:44 Completed CBC W DIFF Stat Lab 12/27/22 11:17 Completed CMP Stat Lab 12/27/22 11:17 Completed CULTURE,URINE Stat Lab 12/27/22 11:08 Received UA W/RFX UR CULTURE Stat Lab 12/27/22 10:38 Completed Medication Summary Discontinued Medications Generic Name Dose Route Start Last Admin Trade Name Bubba PRN Reason Stop Dose Admin Ceftriaxone Sodium/Dextrose 2 g in 50 mls @ 100 mls/hr 12/27/22 11:37 12/27/22 12:14 Rocephin 2 Gm-D5w 50ml Bag IV 12/27/22 12:06 Infused STAT STA Infusion Ceftriaxone Sodium/Dextrose Confirm 12/27/22 11:39 Rocephin 2 Gm-D5w 50ml Bag Administered 12/27/22 11:40 Dose 2 g in 50 mls @ ud IV .STK-MED ONE Lab/Rad Data: Laboratory Result Diagrams 12/27/22 11:17 12/27/22 11:17 Laboratory Results 12/27/22 12/27/22 12/27/22 Range/Units 11:17 11:17 10:38 WBC 10.6 H (4.0-10.5) x10^3/uL RBC 4.46 (4.1-5.6) x10^6/uL Hgb 14.0 (12.5-18.0) g/dL Hct 44.4 (42-50) % MCV 99.6 (78-100) fL MCH 31.4 (26-32) pg MCHC 31.5 L (32-36) g/dL RDW 13.7 (11.5-14.0) % Plt Count 247 (150-450) x10^3/uL MPV 9.5 (7.5-11.0) fL Gran % 83.0 H (36.0-66.0) % Immature Gran % (Auto) 0.5 H (0.00-0.4) % Nucleat RBC Rel Count 0.0 (0.00-0.1) % Eos # (Auto) 0.06 (0-0.5) x10^3/uL Immature Gran # (Auto) 0.05 H (0.00-0.03) x10^3u/L Absolute Lymphs (auto) 0.65 L (1.0-4.6) x10^3/uL Absolute Monos (auto) 1.00 (0.0-1.3) x10^3/uL Absolute Nucleated RBC 0.00 (0.00-0.01) x10^3u/L Lymphocytes % 6.1 L (24.0-44.0) % Monocytes % 9.4 (0.0-12.0) % Eosinophils % 0.6 (0.00-5.0) % Basophils % 0.4 (0.0-0.4) % Absolute Granulocytes 8.81 H (1.4-6.9) x10^3/uL Basophils # 0.04 (0-0.4) x10^3/uL Sodium 140 (137-145) mmol/L Potassium 3.9 (3.5-5.1) mmol/L Chloride 99 (98-107) mmol/L Carbon Dioxide 38 H (22-30) mmol/L Anion Gap 6.6 (5-15) MEQ/L BUN 10 (9-20) mg/dL Creatinine 0.61 L (0.66-1.25) mg/dL Estimated GFR > 60.0 ML/MIN Glucose 83 (74-106) mg/dL Calcium 9.3 (8.4-10.2) mg/dL Total Bilirubin 0.70 (0.2-1.3) mg/dL AST 21 (17-59) U/L ALT 22 (0-50) U/L Alkaline Phosphatase 64 (38-126) U/L Serum Total Protein 6.8 (6.3-8.2) g/dL Albumin 3.9 (3.5-5.0) g/dL Urine Color Red A (Yellow) Urine Appearance Turbid A (Clear) Urine pH (4.6-8.0) Ur Specific [place] 1.025 (1.005-1.030) Urine Protein 30 (Negative) Urine Glucose (UA) Negative (Negative) mg/dL Urine Ketones Negative (Negative) Urine Blood Small A (Negative) Urine Nitrite Positive A (Negative) Urine Bilirubin Small A (Negative) Urine Urobilinogen 0.2 (0.2) mg/dL Ur Leukocyte Esterase Large A (Negative) U Hyaline Cast (Auto) NONE SEEN (0-2) /LPF Urine Microscopic RBC >100 A (0-5) /HPF Urine Microscopic WBC >100 A (0-5) /HPF Ur Epithelial Cells None Seen (None Seen) /HPF Urine Bacteria Rare A (None Seen) /HPF Urine Culture Reflexed ORDERED SEPARATELY (NO) - Progress Progress: improved Progress Note: 12/27/22 11:09 differential diagnosis includes kidney stone, infection, UTI, bladder cancer - basic labs including: CBC, CMP, UA, - consider imaging: CT ab/pelvis 12/27/22 12:33 3 cm opacity in right lung possibly middle lobe. Mass or infectious process cannot be excluded. Further evaluation with chest CT is recommended. Patient and were informed of this. CT scan shows most likely a UTI. UA demonstrates UTI. No systemic signs of illness no signs of sepsis. CBC, CMP are stable. First dose of antibiotics given in the emergency department, ceftriaxone. We will give patient antibiotic for home. They will follow-up with her security messenger for the pulmonary nodule. Plan for follow-up with PCP for UTI, recheck. Patient may return here sooner for any new or changing symptoms. Counseled pt/family regarding: lab results, diagnosis Medical Desision Making - Independent Historian Additional History obtained from: Spouse - External Record(s) Reviewed Records reviewed as a part of evaluation & management: Inpatient - Diagnostic Testing Diagnostic test were ordered, analyzed, and reviewed by me: Yes Radiological Interpretation: Interpreted by me, Reviewed by me - Risk of complications Minimal Risk: Minimal risk of morbidity - Departure Departure Disposition: Home Clinical Impression: UTI (urinary tract infection), Pulmonary nodule Condition: Stable Critical Care Time: No Referrals: DANE STAPLES [Primary Care Provider] - Follow up/PCP as directed Instructions: Blood in the Urine (Hematuria) in Adults, Urinary Tract Infection, Adult ED Additional Instructions: You have an incidental pulmonary nodule. 3 cm opacity in right lung possibly middle lobe. Mass or infectious process cannot be excluded. Further evaluation with chest CT is recommended. Call your PCP to schedule a CT scan. Prescriptions: Cefpodoxime Proxetil 200 mg [Vantin 200 mg] 200 mg PO BID 10 Days #20 tablet
[2022-12-27 11:18] LABS: Absolute Neutrophil Ct (ANC) 8.81 x10^3/uL (1.4-6.9); BASOPHIL % 0.4 % (0.0-0.4); Basophil (Absolute #) 0.04 x10^3/uL (0-0.4); Eosinophil % 0.6 % (0.00-5.0); Eosinophil (Absolute #) 0.06 x10^3/uL (0-0.5); Hematocrit 44.4 % (42-50); IMMATURE GRAN # 0.05 x10^3u/L (0.00-0.03); IMMATURE GRAN % 0.5 % (0.00-0.4); Lymphocyte (Absolute #) 0.65 x10^3/uL (1.0-4.6); Lymphocytes % 6.1 % (24.0-44.0); Mean Cell Volume 99.6 fL (78-100); Mean Corpuscular Hemoglobin 31.4 pg (26-32); Mean Corpuscular Hgb Concent. 31.5 g/dL (32-36); Mean Platelet Volume 9.5 fL (7.5-11.0); Monocytes % 9.4 % (0.0-12.0); Platelet Count 247 x10^3/uL (150-450); Red Blood Count 4.46 x10^6/uL (4.1-5.6); Red Cell Distribution Width 13.7 % (11.5-14.0); White Blood Count 10.6 x10^3/uL (4.0-10.5)
[2022-12-27 11:21] LABS: Appearance Turbid (Clear); Bacteria Rare /HPF (None Seen); Bilirubin Small (Negative); Blood Small (Negative); Epithelial Cells None Seen /HPF (None Seen); Glucose, Urine Negative (Negative); Hyaline Casts NONE SEEN /LPF (0-2); Ketones Negative (Negative); Leukocyte Esterase Large (Negative); Nitrite Positive (Negative); Protein,Urine Dip 30 (Negative); Specific Gravity 1.025 (1.005-1.030); Urobilinogen 0.2 mg/dL (0.2); WBC >100 /HPF (0-5)
[2022-12-27 11:29] LABS: RBC >100 /HPF (0-5)
[2022-12-27 11:30] LABS: ADD URINE CULTURE? ORDERED SEPARATELY (NO)
[2022-12-27 11:32] LABS: ALBUMIN 3.9 g/dL (3.5-5.0); ALKALINE PHOSPHATASE 64 U/L (38-126); ANION GAP 6.6 MEQ/L (5-15); BLOOD UREA NITROGEN 10 mg/dL (9-20); CHLORIDE 99 mmol/L (98-107); Calcium 9.3 mg/dL (8.4-10.2); Carbon Dioxide 38 mmol/L (22-30); Creatinine 1 0.61 mg/dL (0.66-1.25); EST GLOMERULAR FILTRATION RATE > 60.0 ML/MIN; Glucose 83 mg/dL (74-106); Potassium 3.9 mmol/L (3.5-5.1); SGOT/AST 21 U/L (17-59); SGPT/ALT 22 U/L (0-50); SODIUM 140 mmol/L (137-145); Total Protein 6.8 g/dL (6.3-8.2)
[2022-12-27] MEDS ORDERED: ROCEPHIN 2 Gm-D5w 50ML BAG** 2 G/50 ML IVPB IV STA (11:37)
[2022-12-27] MEDS ORDERED: ROCEPHIN 2 Gm-D5w 50ML BAG** 2 G/50 ML IVPB IV ONE (11:39)
[2022-12-27 12:21] VITALS: BP 120/74; PULSE 66; O2SAT 100
--- NOTE | 2022-12-27 12:23 | XRAY ---
CLINICAL HISTORY:kidney stones; COMPARISON:None; TECHNIQUES:CT scan of the abdomen was performed without IV contrast. Bowel loops are not opacified by prior administration of oral contrast. CTDI: 6.53, DLP: 355.69; FINDINGS: The kidneys are normal in size and shape. No calculi or hydronephrosis is seen on either side. Urinary bladder is partially distended. No hyperdense calculus/wall thickening is noted. The liver is normal in size. No focal parenchymal abnormality. The portal vein, intrahepatic biliary radicals and the bile ducts are normal. The spleen is normal in size, no mass seen. Pancreas normal in size. Adrenal glands are unremarkable. Surgical ernestina are seen in the GB fossa ( H/O cholecystectomy ). Multiple small colonic diverticula noted predominently in the sigmoid colon, however no evidence of diverticulitis noted. The visualized small bowel loops are unremarkable. Sigmoid diverticulosis without evidence of acute inflammation is noted. There is no evidence of significant enlargement of the mesenteric or retroperitoneal lymph nodes. Prostate is enlarged indenting the base of the urinary bladder, it measures about 5.0 x 5.6 x 5.1 cm in AP x TR x CC dimensions. Bladder underfilled with mild surrounding fat stranding suspected for cystitis.Please correlate with lab and ultrasound findings. Degenerative changes seen in the visualized spine with prominent anterior osteophytes. No lytic or sclerotic bone lesions. 3 cm opacity in right lung possibly middle lobe. Mass or infectious process cannot be excluded. Additional a few tiny nodule in both lung base some calcified are noted. Tiny umblical hernia is noted. IMPRESSION: No evidence of calculus or hydronephrosis in either kidney. Prostatomegaly. Bladder underfilled with mild surrounding fat stranding suspected for cystitis.Please correlate with lab and ultrasound findings. 3 cm opacity in right lung possibly middle lobe. Mass or infectious process cannot be excluded. Further evaluation with chest CT is recommended. Sigmoid diverticulosis without evidence of acute inflammation. Electronically Signed by: Jhon Posada MD. (12/27/2022 11:13:58 [employer])
== END 2022-12-27 12:45 | disposition home or self-care (01) ==
LOC: ED 10:24
DX: N39.0 Urinary tract infection, site not specified (principal); R91.1 Solitary pulmonary nodule; R31.9 Hematuria, unspecified; E78.5 Hyperlipidemia, unspecified; I10 Essential (primary) hypertension; Z79.899 Other long term (current) drug therapy
CPT/HCPCS: 36000; 36415; 74176; 80053; 81001; 85025; 87077; 87086; 87186; 96365; 99284; J0696

== ENCOUNTER 2023-04-29 16:16 | Observation (INO) | payer MEDICARE ==
[2023-04-29 16:35] LABS: Absolute Neutrophil Ct (ANC) 8.14 x10^3/uL (1.4-6.9); BASOPHIL % 0.5 % (0.0-0.4); Basophil (Absolute #) 0.05 x10^3/uL (0-0.4); Eosinophil % 0.5 % (0.00-5.0); Eosinophil (Absolute #) 0.05 x10^3/uL (0-0.5); Hematocrit 50.1 % (42-50); Hemoglobin 15.9 g/dL (12.5-18.0); IMMATURE GRAN # 0.03 x10^3u/L (0.00-0.03); IMMATURE GRAN % 0.3 % (0.00-0.4); Lymphocyte (Absolute #) 0.67 x10^3/uL (1.0-4.6); Mean Cell Volume 99.8 fL (78-100); Mean Corpuscular Hemoglobin 31.7 pg (26-32); Mean Corpuscular Hgb Concent. 31.7 g/dL (32-36); Mean Platelet Volume 9.4 fL (7.5-11.0); Monocyte (Absolute #) 0.62 x10^3/uL (0.0-1.3); Monocytes % 6.5 % (0.0-12.0); Neutrophil % 85.2 % (36.0-66.0); Platelet Count 242 x10^3/uL (150-450); Red Blood Count 5.02 x10^6/uL (4.1-5.6); Red Cell Distribution Width 13.4 % (11.5-14.0); White Blood Count 9.6 x10^3/uL (4.0-10.5)
--- NOTE | 2023-04-29 16:38 | XRAY ---
Indication: Chest pain. Comparison: June 12, 2021 Portable apical lordotic chest again hyperinflated and clear with incidental focal eventration right hemidiaphragm. Heart not enlarged. Bony thorax intact again with osteopenia and mild generative changes. Impression: Continued nonacute hyperinflated chest with chronic features.
[2023-04-29 16:59] LABS: ALBUMIN 4.2 g/dL (3.5-5.0); ALKALINE PHOSPHATASE 72 U/L (38-126); ANION GAP 14.9 MEQ/L (5-15); BLOOD UREA NITROGEN 15 mg/dL (9-20); CHLORIDE 102 mmol/L (98-107); CK-Creatinine Phosphokinase 28 U/L (55-170); Calcium 9.2 mg/dL (8.4-10.2); Carbon Dioxide 25 mmol/L (22-30); Creatinine 1 0.71 mg/dL (0.66-1.25); EST GLOMERULAR FILTRATION RATE > 60.0 ML/MIN; Glucose 108 mg/dL (74-106); NT PRO BNPII 1470 pg/mL (<300); Potassium 3.9 mmol/L (3.5-5.1); SGOT/AST 182 U/L (17-59); SGPT/ALT 80 U/L (0-50); SODIUM 139 mmol/L (137-145); Total Protein 6.7 g/dL (6.3-8.2)
--- NOTE | 2023-04-29 17:03 | ERPHSYRPT ---
- History of Present Illness Time Seen by Provider: 04/29/23 16:21 Historian: patient, family Exam Limitations: no limitations Patient Subjective Stated Complaint: C/O chest pain that started 1-2 hours prior to coming into the ER. Patient states the pain began when climbing stairs from the basement. He indicates he does this daily and this was not any new or increased extertion for him. states it started shortly after helping load the car and being out in the heat. Triage Nursing Assessment: Patient ambulated back to ER without difficulties; refused a w/c. Patient's back is warm and shirt wet with sweat when nurse touching his back to guide him back into the ER. No SOB. No cough. He is alert and oriented. Pitting edema noted to BLE. Physician History: 82 years old male with history of atrial fibrillation on Eliquis, congestive heart failure, hypertension, hyperlipidemia presented in the ER with chief co mplaint of chest pain. Patient reports he was having a flight of stair from basement and started to have some discomfort pressure in the center of the chest which got worse after he was carrying a bag to his car and has to rest to feel better. Patient denies any associated palpitations or shortness of breath. Patient reports 8/10 intensity earlier which improved to minimal right now. No pressure or tightness but a little discomfort. Denies any history of CAD in the past. Denies any cough fever or chills. Has lower extremity swelling bilaterally which is not any worse than usual. Allergies/Adverse Reactions: morphine Adverse Reaction (Severe, Verified 04/29/23 16:21) severe hallucinations/violent activity bees Allergy (Severe, Uncoded 04/29/23 16:21) Home Medications: Fluticasone/Salmeterol [Advair 250-50 Diskus] 2 each IH DAILY 09/16/18 [History] Montelukast Sodium 10 mg [Singulair 10 MG] 10 mg PO HS 09/16/18 [History] Potassium Chloride Tab* [Klor Con] 20 meq PO BID 09/16/18 [History] Pravastatin Sodium 40 mg PO HS 09/16/18 [History] Furosemide [Lasix] 20 mg PO UD 04/24/20 [History] Omeprazole 20 mg PO QHS 04/24/20 [History] Sacubitril/Valsartan [Entresto 24 mg-26 mg Tablet] 1 tab PO BID 04/24/20 [History] Trazodone HCl 50 mg [Desyrel 50 mg] 50 mg PO HS 04/24/20 [History] Fluticasone Propionate [Flonase NASAL] 2 sprays NS HS 11/08/20 [History] Ascorbic Acid [Vitamin C] 1,000 mg PO DAILY 06/12/21 [History] Digoxin 0.125 mg Tablet [Lanoxin 0.125MG TABLET] 1 tab PO DAILY 12/27/22 [History] Empagliflozin [Jardiance] 1 tab PO DAILY 04/29/23 [History] Metoprolol Tartrate 25 mg [Lopressor 25MG Tab] 1 tab PO BID 04/29/23 [History] Hx Tetanus, Diphtheria Vaccination/Date Given: Yes Hx Influenza Vaccination/Date Given: Yes Hx Pneumococcal Vaccination/Date Given: Yes Immunizations Up to Date: Yes Travel Risk - International Travel Have you traveled outside of the country in past 3 weeks: No - Coronavirus Screening Are you exhibiting any of the following symptoms?: No Close contact with a COVID-19 positive Pt in past 14-21 Days: No - Vaccine Status Have you recieved a Covid-19 vaccination: 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 - Review of Systems Constitutional: No Symptoms Eyes: No Symptoms Ears, Nose, & Throat: No Symptoms Respiratory: No Symptoms Cardiac: Chest Pain, Edema Abdominal/Gastrointestinal: No Symptoms Genitourinary Symptoms: No Symptoms Musculoskeletal: Arthralgias Skin: No Symptoms Neurological: No Symptoms Endocrine: No Symptoms Hematologic/Lymphatic: No Symptoms - Past Medical History Pertinent Past Medical History: Yes Neurological History: No Pertinent History ENT History: No Pertinent History Cardiac History: Arrhythmia, High Cholesterol, Hypertension, Other Respiratory History: Asthma, COPD Endocrine Medical History: No Pertinent History Musculoskeletal History: Arthritis GI Medical History: GERD, Gallbladder Disease History: No Pertinent History Psycho-Social History: No Pertinent History Male Reproductive Disorders: No Pertinent History Other Medical History: A-fib, Insomnia, Allergies - Past Surgical History Past Surgical History: Yes Neuro Surgical History: No Pertinent History Cardiac: Cardiac Catheterization Respiratory: No Pertinent History Gastrointestinal: Appendectomy, Cholecystectomy Genitourinary: No Pertinent History Musculoskeletal: Joint Replacement, Other Male Surgical History: No Pertinent History Other Surgical History: bilat knees replacement, L wrist ganglion cyst, lesion to left thigh. - Social History Smoking Status: Former smoker Exposure to second hand smoke: No Drug Use: none Patient Lives Alone: No - Nursing Vital Signs Nursing Vital Signs: Initial Vital Signs Temperature 97.9 F 04/29/23 16:18 Pulse Rate 69 04/29/23 16:18 Respiratory Rate 16 04/29/23 16:18 Blood Pressure 126/69 04/29/23 16:18 O2 Sat by Pulse Oximetry 97 04/29/23 16:18 Pain Scale Pain Intensity 3 - Physical Exam General Appearance: no apparent distress, alert Eye Exam: PERRL/EOMI Ears, Nose, Throat Exam: normal ENT inspection Neck Exam: normal inspection, supple, full range of motion Respiratory Exam: normal breath sounds, lungs clear Cardiovascular Exam: regular rate/rhythm, normal heart sounds Gastrointestinal/Abdomen Exam: soft, normal bowel sounds, No tenderness Back Exam: normal inspection Extremity Exam: normal inspection, normal range of motion, pelvis stable Neurologic Exam: alert, oriented x 3, cooperative Skin Exam: normal color SpO2 Interpretation: normal SpO2: 97 O2 Delivery: Room Air Ordered Tests: Active Orders 24 hr Category Date Time Status ABDOMEN AND PELVIS W CONTRAST [CT] Stat Exams 04/29/23 17:21 Taken CHEST 1 VIEW (PORTABLE) Stat Exams 04/29/23 16:21 Completed CHEST WITH CONTRAST [CT] Stat Exams 04/29/23 17:20 Taken CBC W DIFF Stat Lab 04/29/23 16:30 Completed CK-Creatinine Phosphokinase Stat Lab 04/29/23 16:30 Completed CMP Stat Lab 04/29/23 16:30 Completed NT PRO BNPII Stat Lab 04/29/23 16:30 Completed TROPONIN Q4H Lab 04/29/23 16:30 Completed TROPONIN Q4H Lab 04/29/23 20:30 Ordered TROPONIN Q4H Lab 04/30/23 00:30 Ordered Transfer Order Routine Transfer 04/29/23 Ordered Lab/Rad Data: Laboratory Result Diagrams 04/29/23 16:30 04/29/23 16:30 Laboratory Results 04/29/23 04/29/23 04/29/23 Range/Units 16:30 16:30 16:30 WBC 9.6 (4.0-10.5) x10^3/uL RBC 5.02 (4.1-5.6) x10^6/uL Hgb 15.9 (12.5-18.0) g/dL Hct 50.1 H (42-50) % MCV 99.8 (78-100) fL MCH 31.7 (26-32) pg MCHC 31.7 L (32-36) g/dL RDW 13.4 (11.5-14.0) % Plt Count 242 (150-450) x10^3/uL MPV 9.4 (7.5-11.0) fL Gran % 85.2 H (36.0-66.0) % Immature Gran % (Auto) 0.3 (0.00-0.4) % Nucleat RBC Rel Count 0.0 (0.00-0.1) % Eos # (Auto) 0.05 (0-0.5) x10^3/uL Immature Gran # (Auto) 0.03 (0.00-0.03) x10^3u/L Absolute Lymphs (auto) 0.67 L (1.0-4.6) x10^3/uL Absolute Monos (auto) 0.62 (0.0-1.3) x10^3/uL Absolute Nucleated RBC 0.00 (0.00-0.01) x10^3u/L Lymphocytes % 7.0 L (24.0-44.0) % Monocytes % 6.5 (0.0-12.0) % Eosinophils % 0.5 (0.00-5.0) % Basophils % 0.5 (0.0-0.4) % Absolute Granulocytes 8.14 H (1.4-6.9) x10^3/uL Basophils # 0.05 (0-0.4) x10^3/uL Sodium 139 (137-145) mmol/L Potassium 3.9 (3.5-5.1) mmol/L Chloride 102 (98-107) mmol/L Carbon Dioxide 25 (22-30) mmol/L Anion Gap 14.9 (5-15) MEQ/L BUN 15 (9-20) mg/dL Creatinine 0.71 (0.66-1.25) mg/dL Estimated GFR > 60.0 ML/MIN Glucose 108 H (74-106) mg/dL Calcium 9.2 (8.4-10.2) mg/dL Total Bilirubin 1.10 (0.2-1.3) mg/dL AST 182 H (17-59) U/L ALT 80 H (0-50) U/L Alkaline Phosphatase 72 (38-126) U/L Creatine Kinase 28 L (55-170) U/L Troponin I < 0.012 (0.000-0.034) ng/mL NT-Pro-B Natriuret Pep 1470 (<300) pg/mL Serum Total Protein 6.7 (6.3-8.2) g/dL Albumin 4.2 (3.5-5.0) g/dL - Progress Progress: improved, re-examined Air Movement: good Progress Note: 04/29/23 18:26 82 years old male with history of atrial fibrillation on Eliquis, congestive heart failure, hypertension, hyperlipidemia presented in the ER with chief complaint of chest pain. Patient reports he was having a flight of stair from basement and started to have some discomfort pressure in the center of the chest which got worse after he was carrying a bag to his car and has to rest to feel better. Patient denies any associated palpitations or shortness of breath. Dave ramey reports 8/10 intensity earlier which improved to minimal right now. No pressure or tightness but a little discomfort. Denies any history of CAD in the past. Denies any cough fever or chills. Has lower extremity swelling bilaterally which is not any worse than usual. 04/29/23 18:26 He is offered pain medication which she declined. EKG showed rate controlled A- fib with left bundle branch block. Patient is anticoagulated on Eliquis. Chest x-ray negative for any acute cardiopulmonary findings. Negative initial troponins. Patient has multiple risk factors for CAD. I have discussed with Dr. Moy, reviewed history, work-up and patient is accepted for admission. I have discussed the results of work-up and plan of admission with patient and family who understand and agree with it. 04/29/23 19:32 Patient has negative CTA chest and CT abdomen pelvis with contrast. He is pain-free currently. He is being admitted. Blood Culture(s) Obtained: No Antibiotics given: No Discussed with : Rosy ([phone]) Counseled pt/family regarding: lab results, diagnosis, rad results Medical Desision Making - Independent Historian Additional History obtained from: Spouse - Discussion of managment Care discussed with:: hospitalist Reviewed:: Test results, Need for additional workup Agreed on:: Treatment plan, place in obs Will see patient: in hospital - Diagnostic Testing Diagnostic test were ordered, analyzed, and reviewed by me: Yes Radiological Interpretation: Reviewed by me - Risk of complications The pt has a high risk of morbidity or mortality based on: Decision regarding hospitilization or escalation of hosp level of care - Departure Departure Disposition: Observation Clinical Impression: Chest pain, rule out acute myocardial infarction Condition: Stable Critical Care Time: No Referrals: DEE MOLINA NP [Primary Care Provider] - Follow up/PCP as directed
[2023-04-29] MEDS ORDERED: BABY ASPIRIN 81 MG CHEW PO ONE (19:33)
[2023-04-29] MEDS ORDERED: BABY ASPIRIN 81 MG CHEW ONE (19:36)
--- NOTE | 2023-04-29 20:44 | PCM.HP ---
History of Present Illness - Chief Complaint Chief Complaint: Chest pain rule out acute [place] History of Present Illness: is a 82 year old male with history of CHF, HTN, HLP and chronic AFib came in with c/o chest pain that occurred 2 hrs prior to arrival. He states his pain came after ascending the stairs from his basement. But his reports he has been helping unload the car in the heat as well. He denies having regular chest pain. Pain is left sided, non-radiating, not associated with SOB, nausea, vomiting, sweats. Denies cough, sputum, fever, chills. He is generally active and has no major physical limitation. He described the pain as pressure like and lasted for seconds and went away. He is pain free now. In ER, trop was negative and EKG unremarkable. He was noted to be sweaty and hot to touch on his back. He is on RA. Admitted for chest pain rule-out. - Review of Systems Constitutional: No Symptoms Eyes: No Symptoms Ears, Nose, & Throat: No Symptoms Respiratory: No Symptoms Cardiac: Chest Pain, Edema Abdominal/Gastrointestinal: No Symptoms Genitourinary Symptoms: No Symptoms Musculoskeletal: No Symptoms Skin: No Symptoms Neurological: No Symptoms Psychological: No Symptoms Endocrine: No Symptoms Hematologic/Lymphatic: No Symptoms Immunological/Allergic: No Symptoms Medications & Allergies Home Medications: Home Medication List Fluticasone/Salmeterol [Advair 250-50 Diskus] 2 each IH DAILY 09/16/18 [History Confirmed 04/29/23] Montelukast Sodium 10 mg [Singulair 10 MG] 10 mg PO HS 09/16/18 [History Confirmed 04/29/23] Potassium Chloride Tab* [Klor Con] 20 meq PO BID 09/16/18 [History Confirmed 04/29/23] Pravastatin Sodium 40 mg PO HS 09/16/18 [History Confirmed 04/29/23] Apixaban [Eliquis] 5 mg PO BID #0 10/20/18 [Rx Confirmed 04/29/23] Furosemide [Lasix] 20 mg PO UD 04/24/20 [History Confirmed 04/29/23] Omeprazole 20 mg PO QHS 04/24/20 [History Confirmed 04/29/23] Sacubitril/Valsartan [Entresto 24 mg-26 mg Tablet] 1 tab PO BID 04/24/20 [History Confirmed 04/29/23] Trazodone HCl 50 mg [Desyrel 50 mg] 50 mg PO HS 04/24/20 [History Confirmed 04/29/23] Fluticasone Propionate [Flonase NASAL] 2 sprays NS HS 11/08/20 [History Confirmed 04/29/23] Ascorbic Acid [Vitamin C] 1,000 mg PO DAILY 06/12/21 [History Confirmed 0 04/29/23] Digoxin 0.125 mg Tablet [Lanoxin 0.125MG TABLET] 1 tab PO DAILY 12/27/22 [History Confirmed 04/29/23] Empagliflozin [Jardiance] 1 tab PO DAILY 04/29/23 [History Confirmed 04/29/23] Metoprolol Tartrate 25 mg [Lopressor 25MG Tab] 1 tab PO BID 04/29/23 [History Confirmed 04/29/23] Allergies/Adverse Reactions: Allergies Allergy/AdvReac Type Severity Reaction Status Date / Time morphine AdvReac Severe severe Verified 04/29/23 16:21 hallucinations/violent activity bees Allergy Severe Uncoded 04/29/23 16:21 - Past Medical History Past Medical History: Yes Neurological History: No Pertinent History ENT History: No Pertinent History Cardiac History: Arrhythmia, High Cholesterol, Hypertension, Other Respiratory History: Asthma, COPD Endocrine Medical History: No Pertinent History Musculoskelatal History: Arthritis GI Medical History: GERD, Gallbladder Disease History: No Pertinent History Pyscho-Social History: No Pertinent History Male Reproductive Disorders: No Pertinent History Comment: A-fib, Allergies - Past Surgical History Past Surgical History: Yes Neuro Surgical History: No Pertinent History Cardiac History: Cardiac Catheterization Respiratory Surgery: No Pertinent History GI Surgical History: Appendectomy, Cholecystectomy Genitourinary Surgical Hx: No Pertinent History Musculskeletal Surgical Hx: Joint Replacement, Other Male Surgical History: No Pertinent History Other Surgical History: bilat knees replacement, L wrist ganglion cyst, lesion to left thigh. - Social History Smoking Status: Never smoker Exposure to second hand smoke: No Alcohol: Rarely Drug Use: none - Physical Exam Vital Signs: Vital Signs - 24 hr Temp Pulse Resp BP BP Pulse Ox 04/29/23 19:57 98.2 F 62 16 137/68 97 04/29/23 19:33 97 04/29/23 19:25 99 H 28 H 97 04/29/23 19:20 93 H 34 H 98 04/29/23 19:10 98 H 33 H 97 04/29/23 19:01 75 19 126/67 94 L 04/29/23 18:30 73 18 114/59 97 04/29/23 18:29 64 10 L 97 04/29/23 18:20 57 L 14 98 04/29/23 18:17 97 04/29/23 18:04 92 L 04/29/23 17:30 102/49 04/29/23 17:01 92 H 18 98/59 95 04/29/23 16:31 60 17 122/58 97 04/29/23 16:20 71 16 126/69 96 04/29/23 16:18 97.9 F 69 16 126/69 97 General Appearance: no apparent distress Neurologic Exam: alert, oriented x 3, cooperative, normal mood/affect Eye Exam: PERRL/EOMI, eyes nml inspection Ears, Nose, Throat Exam: normal ENT inspection Neck Exam: normal inspection, supple Respiratory Exam: normal breath sounds, lungs clear Cardiovascular Exam: normal heart sounds, irregular Gastrointestinal/Abdomen Exam: soft, normal bowel sounds Rectal Exam: deferred Extremity Exam: pedal edema Skin Exam: normal color Results - Labs Lab/Micro Results: Lab Results-Last 24 Hours 04/29/23 04/29/23 04/29/23 Range/Units 16:30 16:30 16:30 WBC 9.6 (4.0-10.5) x10^3/uL RBC 5.02 (4.1-5.6) x10^6/uL Hgb 15.9 (12.5-18.0) g/dL Hct 50.1 H (42-50) % MCV 99.8 (78-100) fL MCH 31.7 (26-32) pg MCHC 31.7 L (32-36) g/dL RDW 13.4 (11.5-14.0) % Plt Count 242 (150-450) x10^3/uL MPV 9.4 (7.5-11.0) fL Gran % 85.2 H (36.0-66.0) % Immature Gran % (Auto) 0.3 (0.00-0.4) % Nucleat RBC Rel Count 0.0 (0.00-0.1) % Eos # (Auto) 0.05 (0-0.5) x10^3/uL Immature Gran # (Auto) 0.03 (0.00-0.03) x10^3u/L Absolute Lymphs (auto) 0.67 L (1.0-4.6) x10^3/uL Absolute Monos (auto) 0.62 (0.0-1.3) x10^3/uL Absolute Nucleated RBC 0.00 (0.00-0.01) x10^3u/L Lymphocytes % 7.0 L (24.0-44.0) % Monocytes % 6.5 (0.0-12.0) % Eosinophils % 0.5 (0.00-5.0) % Basophils % 0.5 (0.0-0.4) % Absolute Granulocytes 8.14 H (1.4-6.9) x10^3/uL Basophils # 0.05 (0-0.4) x10^3/uL Sodium 139 (137-145) mmol/L Potassium 3.9 (3.5-5.1) mmol/L Chloride 102 (98-107) mmol/L Carbon Dioxide 25 (22-30) mmol/L Anion Gap 14.9 (5-15) MEQ/L BUN 15 (9-20) mg/dL Creatinine 0.71 (0.66-1.25) mg/dL Estimated GFR > 60.0 ML/MIN Glucose 108 H (74-106) mg/dL Calcium 9.2 (8.4-10.2) mg/dL Total Bilirubin 1.10 (0.2-1.3) mg/dL AST 182 H (17-59) U/L ALT 80 H (0-50) U/L Alkaline Phosphatase 72 (38-126) U/L Creatine Kinase 28 L (55-170) U/L Troponin I < 0.012 (0.000-0.034) ng/mL NT-Pro-B Natriuret Pep 1470 (<300) pg/mL Serum Total Protein 6.7 (6.3-8.2) g/dL Albumin 4.2 (3.5-5.0) g/dL - Radiology Impressions Radiology Exams & Impressions: Radiology Procedures Category Date Time Status ABDOMEN AND PELVIS W CONTRAST [CT] Stat Exams 04/29/23 17:21 Taken CHEST 1 VIEW (PORTABLE) Stat Exams 04/29/23 16:21 Completed CHEST WITH CONTRAST [CT] Stat Exams 04/29/23 17:20 Taken Assessment/Plan (1) Chest pain, rule out acute myocardial infarction Current Visit: Yes Status: Acute Assessment & Plan: Trop negative x 1. Plan to trend trop. EKG unremarkable for [place]. Resumed home meds, monitor on tele overnight. Will check A1C, TSH and lipids Code(s): R07.9 - CHEST PAIN, UNSPECIFIED (2) Atrial fibrillation Current Visit: No Status: Chronic Assessment & Plan: HR is controlled. This is a chronic issue. Continue Eliquis Code(s): I48.91 - UNSPECIFIED ATRIAL FIBRILLATION (3) Elevated LFTs Current Visit: Yes Status: Acute Assessment & Plan: AST 182, ALT 80, bili and alk phos normal. Could be fatty liver. Will monitor and repeat tomorrow Code(s): R79.89 - OTHER SPECIFIED ABNORMAL FINDINGS OF BLOOD CHEMISTRY (4) Essential (primary) hypertension Current Visit: Yes Status: Chronic Assessment & Plan: Will resume his home BP medications. We will monitor his BP and make adjustment as needed Code(s): I10 - ESSENTIAL (PRIMARY) HYPERTENSION (5) Hyperlipidemia Current Visit: Yes Status: Chronic Assessment & Plan: Resumed his home statin Code(s): E78.5 - HYPERLIPIDEMIA, UNSPECIFIED (6) COPD (chronic obstructive pulmonary disease) Current Visit: No Status: Chronic Assessment & Plan: On RA, not in active exacerbation. Telemedicine Encounter - Telemedicine Encounter Telemedicine Encounter: The entirety of this encounter was performed via Telemedicine" Pt gave me verbal consent to have this telemedicine visit
[2023-04-29] MEDS ORDERED: TYLENOL 325 MG PO PRN (20:49)
[2023-04-29] MEDS ORDERED: DUONEB 0.5-3 MG/3 ml Neb IH PRN (20:49)
[2023-04-29] MEDS ORDERED: ZOFRAN ODT 4 MG PO PRN (20:53)
[2023-04-30 05:13] LABS: Hematocrit 47.6 % (42-50); Hemoglobin 15.2 g/dL (12.5-18.0); Mean Cell Volume 96.7 fL (78-100); Mean Corpuscular Hemoglobin 30.9 pg (26-32); Mean Corpuscular Hgb Concent. 31.9 g/dL (32-36); Mean Platelet Volume 10.2 fL (7.5-11.0); Platelet Count 214 x10^3/uL (150-450); Red Blood Count 4.92 x10^6/uL (4.1-5.6); Red Cell Distribution Width 13.5 % (11.5-14.0); White Blood Count 6.6 x10^3/uL (4.0-10.5)
[2023-04-30 05:36] LABS: ALBUMIN 3.7 g/dL (3.5-5.0); ALKALINE PHOSPHATASE 91 U/L (38-126); ANION GAP 12.9 MEQ/L (5-15); BLOOD UREA NITROGEN 12 mg/dL (9-20); CHLORIDE 102 mmol/L (98-107); Carbon Dioxide 24 mmol/L (22-30); Cholesterol 133 mg/dL (50-200); Creatinine 1 0.53 mg/dL (0.66-1.25); EST GLOMERULAR FILTRATION RATE > 60.0 ML/MIN; Glucose 77 mg/dL (74-106); HDL CHOLESTEROL 41 mg/dL (40-60); LDL, DIRECT 76 mg/dL (30-100); Potassium 3.6 mmol/L (3.5-5.1); Risk Ratio 3.2; SGOT/AST 156 U/L (17-59); SGPT/ALT 152 U/L (0-50); SODIUM 136 mmol/L (137-145); TRIGLYCERIDE 42 mg/dL (30-150); Total Protein 5.9 g/dL (6.3-8.2)
[2023-04-30 06:53] VITALS: RESP 16
[2023-04-30] MEDS ORDERED: FLUTICASONE-SALMETEROL 250-50 IH SCH (07:00)
[2023-04-30] MEDS ORDERED: Advair Hfa 230/21 Mcg COMMON CANISTER IH SCH (07:00)
[2023-04-30 07:20] VITALS: BP 108/52; PULSE 63; TEMP 97.6; O2SAT 97
[2023-04-30] MEDS ORDERED: LASIX 20 MG PO SCH (07:30)
[2023-04-30] MEDS ORDERED: Advair Hfa 115/21 Common canister IH SCH ×2 (08:00→19:00)
--- NOTE | 2023-04-30 08:44 | XRAY ---
Indication: Short of breath and chest pain. Pulmonary embolus. Dissection. Multiple contiguous images obtained through the chest using 80 cc Isovue 370 contrast and PE protocol. Comparison: February 07, 2019 Adequate opacification of the pulmonary arteries. No pulmonary embolus. Heart not enlarged. Aorta mildly atherosclerotic without aneurysm/dissection. No pathologic mediastinal/hilar lymphadenopathy. Lungs again demonstrate chronic right middle lobe atelectasis. No focal infiltrate, consolidation, or large effusion. Chronic right hemidiaphragm elevation. Bony thorax intact with again osteopenia and flowing osteophytes throughout spine. CT abdomen/pelvis reported separately. Impression: 1. Negative pulmonary embolus. No new/acute cardiopulmonary abnormalities. 2. Chronic findings including right middle lobe atelectasis, right hemidiaphragm elevation, and right hemidiaphragm elevation.
--- NOTE | 2023-04-30 08:47 | XRAY ---
Indication: Abdomen pain. AAA. Multiple contiguous axial images obtained through the abdomen and pelvis using 80 cc Isovue 370 contrast. Comparison: December 27, 2022 CT chest reported separately. Noncontrasted stomach and bowel loops are nonobstructed. Appendectomy and cholecystectomy. Inferior right lobe liver demonstrates stable 5 mm cyst. Again enlarged prostate gland impressing on base of bladder. No free fluid/air. Remaining liver, pancreas, spleen, adrenal glands, kidneys, ureters, and bladder are unremarkable. Again moderate scattered aortoiliac calcifications without AAA. Osseous structures intact again with osteopenia and moderate degenerative changes throughout spine. Impression: 1. Again chronic findings including hepatic cysts, enlarged prostate gland, arteriosclerotic disease, and chronic bony findings. 2. Remaining CT abdomen/pelvis with contrast exam continues to be negative.
[2023-04-30] MEDS ORDERED: Vitamin C 500 MG PO SCH (10:00)
[2023-04-30] MEDS ORDERED: NON-FORMULARY ITEM (Apixaban [Eliquis] 5 MG Tablet) PO SCH (10:00)
[2023-04-30] MEDS ORDERED: ASCORBIC ACID 1000 MG PO SCH (10:00)
[2023-04-30] MEDS ORDERED: NON-FORMULARY ITEM (Sacubitril/Valsartan [Entresto 24 Mg-26 Mg Tablet] 1 EACH Tablet) PO SCH (10:00)
[2023-04-30] MEDS ORDERED: ELIQUIS 2.5 MG TABLET PO SCH (10:00)
[2023-04-30] MEDS ORDERED: Klor Con PO SCH (10:00)
[2023-04-30] MEDS ORDERED: ENTRESTO 49 MG-51 MG TABLET PO SCH (10:00)
[2023-04-30] MEDS ORDERED: Lanoxin 0.125MG TABLET PO SCH (10:00)
[2023-04-30] MEDS ORDERED: JARDIANCE PO SCH (10:00)
[2023-04-30] MEDS ORDERED: Lopressor 25MG Tab PO SCH (10:00)
--- NOTE | 2023-04-30 11:41 | PCM.DS ---
Discharge Summary Date of Admission: 04/29/23 19:47 Date of Discharge: 04/30/23 Admitting Physician: OBED DARBY DO Primary Care Provider: DEE MOLINA Allergies Allergies morphine Adverse Reaction (Severe, Verified 04/29/23 16:21) severe hallucinations/violent activity bees Allergy (Severe, Uncoded 04/29/23 16:21) Hospital Summary - Hospital Course Hospital Course: is a 82 year old male with history of CHF, HTN, HLP and chronic AFib came in with c/o chest pain that occurred admitted for chest pain rule- out.During hospitalization CT imaging, EKG, and trops negative for acute findings. Vitals and lab findings stable. Chest pain has resolved. Patient is advised close follow up with PCP as well as Dr. Orantes his stress test technician for [facility] he is agreeable. Most recent plan: (1) Chest pain, rule out acute myocardial infarction Current Visit: Yes Status: Acute Assessment & Plan: Trop negative x 1. Plan to trend trop. EKG unremarkable for [place]. Resumed home meds, monitor on tele overnight. Will check A1C, TSH and lipids 04/30: -lab findings unremarkable -no longer with chest pain Code(s): R07.9 - CHEST PAIN, UNSPECIFIED (2) Atrial fibrillation Current Visit: No Status: Chronic Assessment & Plan: HR is controlled. This is a chronic issue. Continue Eliquis Code(s): I48.91 - UNSPECIFIED ATRIAL FIBRILLATION (3) Elevated LFTs Current Visit: Yes Status: Acute Assessment & Plan: AST 182, ALT 80, bili and alk phos normal. Could be fatty liver. Will monitor and repeat tomorrow Code(s): R79.89 - OTHER SPECIFIED ABNORMAL FINDINGS OF BLOOD CHEMISTRY (4) Essential (primary) hypertension Current Visit: Yes Status: Chronic Assessment & Plan: Will resume his home BP medications. We will monitor his BP and make adjustment as needed Code(s): I10 - ESSENTIAL (PRIMARY) HYPERTENSION (5) Hyperlipidemia Current Visit: Yes Status: Chronic Assessment & Plan: Resumed his home statin Code(s): E78.5 - HYPERLIPIDEMIA, UNSPECIFIED (6) COPD (chronic obstructive pulmonary disease) Current Visit: No Status: Chronic Assessment & Plan: On RA, not in active exacerbation. New Meds: continue home meds Dispo: Home - Vitals & Intake/Output Vital Signs: Vital Signs Temperature 97.6 F 04/30/23 07:19 Pulse Rate 63 04/30/23 08:47 Respiratory Rate 16 04/30/23 07:19 Blood Pressure 108/52 04/30/23 08:47 O2 Sat by Pulse Oximetry 97 04/30/23 07:19 Intake & Output: Intake & Output 04/27/23 04/28/23 04/29/23 04/30/23 11:59 11:59 11:59 11:59 Intake Total 940 Balance 940 Weight 69.1 kg - Lab Result Diagrams: 04/30/23 04:15 04/30/23 04:15 Lab Results-Last 24 Hrs: Lab Results-Last 24 Hours 04/29/23 04/29/23 04/29/23 Range/Units 16:30 16:30 16:30 WBC 9.6 (4.0-10.5) x10^3/uL RBC 5.02 (4.1-5.6) x10^6/uL Hgb 15.9 (12.5-18.0) g/dL Hct 50.1 H (42-50) % MCV 99.8 (78-100) fL MCH 31.7 (26-32) pg MCHC 31.7 L (32-36) g/dL RDW 13.4 (11.5-14.0) % Plt Count 242 (150-450) x10^3/uL MPV 9.4 (7.5-11.0) fL Gran % 85.2 H (36.0-66.0) % Immature Gran % (Auto) 0.3 (0.00-0.4) % Nucleat RBC Rel Count 0.0 (0.00-0.1) % Eos # (Auto) 0.05 (0-0.5) x10^3/uL Immature Gran # (Auto) 0.03 (0.00-0.03) x10^3u/L Absolute Lymphs (auto) 0.67 L (1.0-4.6) x10^3/uL Absolute Monos (auto) 0.62 (0.0-1.3) x10^3/uL Absolute Nucleated RBC 0.00 (0.00-0.01) x10^3u/L Lymphocytes % 7.0 L (24.0-44.0) % Monocytes % 6.5 (0.0-12.0) % Eosinophils % 0.5 (0.00-5.0) % Basophils % 0.5 (0.0-0.4) % Absolute Granulocytes 8.14 H (1.4-6.9) x10^3/uL Basophils # 0.05 (0-0.4) x10^3/uL Sodium 139 (137-145) mmol/L Potassium 3.9 (3.5-5.1) mmol/L Chloride 102 (98-107) mmol/L Carbon Dioxide 25 (22-30) mmol/L Anion Gap 14.9 (5-15) MEQ/L BUN 15 (9-20) mg/dL Creatinine 0.71 (0.66-1.25) mg/dL Estimated GFR > 60.0 ML/MIN Glucose 108 H (74-106) mg/dL Hemoglobin A1c (4.5-6.0) % Calcium 9.2 (8.4-10.2) mg/dL Total Bilirubin 1.10 (0.2-1.3) mg/dL AST 182 H (17-59) U/L ALT 80 H (0-50) U/L Alkaline Phosphatase 72 (38-126) U/L Creatine Kinase 28 L (55-170) U/L Troponin I < 0.012 (0.000-0.034) ng/mL NT-Pro-B Natriuret Pep 1470 (<300) pg/mL Serum Total Protein 6.7 (6.3-8.2) g/dL Albumin 4.2 (3.5-5.0) g/dL Triglycerides (30-150) mg/dL Cholesterol (50-200) mg/dL LDL Cholesterol (30-100) mg/dL HDL Cholesterol (40-60) mg/dL Heart Disease Risk Ratio TSH 3rd Generation (0.47-4.68) mIU/L 04/29/23 04/29/23 04/29/23 Range/Units 20:25 21:00 Unknown WBC (4.0-10.5) x10^3/uL RBC (4.1-5.6) x10^6/uL Hgb (12.5-18.0) g/dL Hct (42-50) % MCV (78-100) fL MCH (26-32) pg MCHC (32-36) g/dL RDW (11.5-14.0) % Plt Count (150-450) x10^3/uL MPV (7.5-11.0) fL Gran % (36.0-66.0) % Immature Gran % (Auto) (0.00-0.4) % Nucleat RBC Rel Count (0.00-0.1) % Eos # (Auto) (0-0.5) x10^3/uL Immature Gran # (Auto) (0.00-0.03) x10^3u/L Absolute Lymphs (auto) (1.0-4.6) x10^3/uL Absolute Monos (auto) (0.0-1.3) x10^3/uL Absolute Nucleated RBC (0.00-0.01) x10^3u/L Lymphocytes % (24.0-44.0) % Monocytes % (0.0-12.0) % Eosinophils % (0.00-5.0) % Basophils % (0.0-0.4) % Absolute Granulocytes (1.4-6.9) x10^3/uL Basophils # (0-0.4) x10^3/uL Sodium (137-145) mmol/L Potassium (3.5-5.1) mmol/L Chloride (98-107) mmol/L Carbon Dioxide (22-30) mmol/L Anion Gap (5-15) MEQ/L BUN (9-20) mg/dL Creatinine (0.66-1.25) mg/dL Estimated GFR ML/MIN Glucose (74-106) mg/dL Hemoglobin A1c 5.76 (4.5-6.0) % Calcium (8.4-10.2) mg/dL Total Bilirubin (0.2-1.3) mg/dL AST (17-59) U/L ALT (0-50) U/L Alkaline Phosphatase (38-126) U/L Creatine Kinase (55-170) U/L Troponin I < 0.012 (0.000-0.034) ng/mL NT-Pro-B Natriuret Pep (<300) pg/mL Serum Total Protein (6.3-8.2) g/dL Albumin (3.5-5.0) g/dL Triglycerides (30-150) mg/dL Cholesterol (50-200) mg/dL LDL Cholesterol (30-100) mg/dL HDL Cholesterol (40-60) mg/dL Heart Disease Risk Ratio TSH 3rd Generation 1.190 (0.47-4.68) mIU/L 04/30/23 04/30/23 04/30/23 Range/Units 00:30 04:15 04:15 WBC 6.6 (4.0-10.5) x10^3/uL RBC 4.92 (4.1-5.6) x10^6/uL Hgb 15.2 (12.5-18.0) g/dL Hct 47.6 (42-50) % MCV 96.7 (78-100) fL MCH 30.9 (26-32) pg MCHC 31.9 L (32-36) g/dL RDW 13.5 (11.5-14.0) % Plt Count 214 (150-450) x10^3/uL MPV 10.2 (7.5-11.0) fL Gran % (36.0-66.0) % Immature Gran % (Auto) (0.00-0.4) % Nucleat RBC Rel Count (0.00-0.1) % Eos # (Auto) (0-0.5) x10^3/uL Immature Gran # (Auto) (0.00-0.03) x10^3u/L Absolute Lymphs (auto) (1.0-4.6) x10^3/uL Absolute Monos (auto) (0.0-1.3) x10^3/uL Absolute Nucleated RBC (0.00-0.01) x10^3u/L Lymphocytes % (24.0-44.0) % Monocytes % (0.0-12.0) % Eosinophils % (0.00-5.0) % Basophils % (0.0-0.4) % Absolute Granulocytes (1.4-6.9) x10^3/uL Basophils # (0-0.4) x10^3/uL Sodium 136 L (137-145) mmol/L Potassium 3.6 (3.5-5.1) mmol/L Chloride 102 (98-107) mmol/L Carbon Dioxide 24 (22-30) mmol/L Anion Gap 12.9 (5-15) MEQ/L BUN 12 (9-20) mg/dL Creatinine 0.53 L (0.66-1.25) mg/dL Estimated GFR > 60.0 ML/MIN Glucose 77 (74-106) mg/dL Hemoglobin A1c (4.5-6.0) % Calcium 9.0 (8.4-10.2) mg/dL Total Bilirubin 1.00 (0.2-1.3) mg/dL AST 156 H (17-59) U/L ALT 152 H (0-50) U/L Alkaline Phosphatase 91 (38-126) U/L Creatine Kinase (55-170) U/L Troponin I 0.014 (0.000-0.034) ng/mL NT-Pro-B Natriuret Pep (<300) pg/mL Serum Total Protein 5.9 L (6.3-8.2) g/dL Albumin 3.7 (3.5-5.0) g/dL Triglycerides 42 (30-150) mg/dL Cholesterol 133 (50-200) mg/dL LDL Cholesterol 76 (30-100) mg/dL HDL Cholesterol 41 (40-60) mg/dL Heart Disease Risk Ratio 3.2 TSH 3rd Generation (0.47-4.68) mIU/L - Radiology Exams Ordered Rad Exams-Entire Visit: Radiology Procedures Category Date Time Status ABDOMEN AND PELVIS W CONTRAST [CT] Stat Exams 04/29/23 17:21 Completed CHEST 1 VIEW (PORTABLE) Stat Exams 04/29/23 16:21 Completed CHEST WITH CONTRAST [CT] Stat Exams 04/29/23 17:20 Completed - Procedures and Test Procedures and Tests throughout Hospitalization: Therapy Orders & Screens 04/30/23 05:53 Respiratory Therapy Assessment DAILY Comment: Diagnosis: Chest pain rule out acute [place] Discharge Exam General Appearance: no apparent distress Neurologic Exam: alert, oriented x 3, cooperative Eye Exam: PERRL Neck Exam: normal inspection Respiratory Exam: normal breath sounds, lungs clear Cardiovascular Exam: regular rate/rhythm, normal heart sounds Gastrointestinal/Abdomen Exam: soft, normal bowel sounds Back Exam: normal inspection Skin Exam: normal color Final Diagnosis/Problem List - Final Discharge Diagnosis/Problem (1) Chest pain, rule out acute myocardial infarction Current Visit: Yes Status: Resolved Code(s): R07.9 - CHEST PAIN, UNSPECIFIED (2) Elevated LFTs Current Visit: Yes Status: Chronic Code(s): R79.89 - OTHER SPECIFIED ABNORMAL FINDINGS OF BLOOD CHEMISTRY (3) Essential (primary) hypertension Current Visit: Yes Status: Chronic Code(s): I10 - ESSENTIAL (PRIMARY) H YPERTENSION (4) Hyperlipidemia Current Visit: Yes Status: Chronic Code(s): E78.5 - HYPERLIPIDEMIA, UNSPE CIFIED - Discharge Prescriptions: New Acetaminophen 325 mg [Tylenol 325 mg] 325 mg PO Q4H PRN PRN tablet PRN Reason: Pain, Fever, Headache Ondansetron ODT 4 MG [Zofran Odt 4 mg] 4 mg PO Q6H PRN PRN tablet PRN Reason: Nausea/Vomiting Albuterol/Ipratropium 3ml Neb* [DUONEB 0.5-3 MG/3 ml Neb] 3 ml IH Q6HRT PRN PRN Reason: Shortness Of Breath/Wheezing Continue Fluticasone/Salmeterol [Advair 250-50 Diskus] 2 each IH BID Montelukast Sodium 10 mg [Singulair 10 MG] 10 mg PO HS Pravastatin Sodium 40 mg PO HS Potassium Chloride Tab* [Klor Con] 20 meq PO BID Apixaban [Eliquis] 5 mg PO BID #0 Trazodone HCl 50 mg [Desyrel 50 mg] 50 mg PO HS Furosemide [Lasix] 20 mg PO UD Sacubitril/Valsartan [Entresto 24 mg-26 mg Tablet] 1 tab PO BID Omeprazole 20 mg PO QHS Fluticasone Propionate [Flonase NASAL] 2 sprays NS HS Ascorbic Acid [Vitamin C] 1,000 mg PO DAILY Digoxin 0.125 mg Tablet [Lanoxin 0.125MG TABLET] 1 tab PO DAILY Empagliflozin [Jardiance] 1 tab PO DAILY Metoprolol Tartrate 25 mg [Lopressor 25MG Tab] 1 tab PO BID Instructions: Angina, Heat Exhaustion and Heat Stroke (DC) Follow up with: DEE MOLINA NP [Primary Care Provider] - (Wednesday05/05/23 9:45 am) Forms: Discharge Instructions
[2023-04-30] MEDS ORDERED: Flonase NASAL NS SCH (22:00)
[2023-04-30] MEDS ORDERED: Singulair 10 MG PO SCH (22:00)
[2023-04-30] MEDS ORDERED: ZOCOR 20MG PO SCH (22:00)
[2023-04-30] MEDS ORDERED: Protonix 40MG Tablet PO SCH (22:00)
[2023-04-30] MEDS ORDERED: NON-FORMULARY ITEM (Pravastatin Sodium [Pravastatin Sodium] 40 MG Tablet) PO SCH (22:00)
[2023-04-30] MEDS ORDERED: NON-FORMULARY ITEM (Omeprazole [Omeprazole] 20 MG Capsule.Dr) PO SCH (22:00)
[2023-04-30] MEDS ORDERED: DESYREL 50 MG PO SCH (22:00)
== END 2023-04-30 12:02 | disposition home or self-care (01) ==
LOC: ED 16:16 → MED SURG 19:47
PROVIDERS: ADMIT Internal Medicine; ATTEND Internal Medicine
DX: R07.9 Chest pain, unspecified (principal); I48.91 Unspecified atrial fibrillation; R79.89 Other specified abnormal findings of blood chemistry; I11.0 Hypertensive heart disease with heart failure; I50.9 Heart failure, unspecified; E78.5 Hyperlipidemia, unspecified; J44.9 Chronic obstructive pulmonary disease, unspecified; Z79.01 Long term (current) use of anticoagulants; Z79.899 Other long term (current) drug therapy; Z20.828 Contact with and (suspected) exposure to other viral communicable diseases
CPT/HCPCS: 36000; 36415; 71045; 71260; 74177; 80053; 80061; 82550; 83036; 83721; 83880; 84443; 84484; 85025; 85027; 93268; 94640; 94760; 99285; G0378; Q3014; A9270-GY